=== PATIENT | female | born 1955 | race Caucasian/White ===

== ENCOUNTER 2025-02-22 15:50 | Outpatient (OUT) | payer OTHER, SELFPAY ==
--- OUTSIDE RECORDS SUMMARY | 2025-02-04 13:40 | XMS_ITS | Encounter Summary ---
Author Organization [facility] Address [address] [place] [address] Phone Care Team Providers Care Esol Teacher Assistant Name Role Phone Boom Parker DO Primary Care Provider [phone] Reason for Referral * Cardiovascular (Routine) - Pending ReviewSpecialtyDiagnoses / Procedures Referred By ContactReferred To Contact Diagnoses PAF (paroxysmal atrial fibrillation) (Multi) Procedures ECG 12 Lead ECG 12 Lead Juancho Morejon MD [address], [address] [address] Phone: tel: fax: Referral IDStatusReasonStart DateExpiration DateVisits RequestedVisits [id number] * CV Imaging (Routine) - Pending ReviewSpecialtyDiagnoses / ProceduresReferred By ContactReferred To ContactCardiology Diagnoses Left atrial dilatation Right atrial dilation Abnormal echocardiogram Procedures Transthoracic Echo Complete [place] ECHO TTHRC R-T 2D W/WOM-MODE COMPL SPEC&COLR D Juancho Morejon MD [address], [address] [address] Phone: tel: fax: Referral IDStatusNichelleasonStart DateExpiration DateVisits RequestedVisits [id number] Review Perform Procedure * Consultation (Routine) - AuthorizedSpecialtyDiagnoses / ProceduresReferred By ContactReferred To ContactCardiology Diagnoses PAF (paroxysmal atrial fibrillation) (Multi) Procedures Follow Up In Cardiology Juancho Morejon MD [address] [facility], [address] [place] [address] Phone: tel: fax: Juancho Morejon MD [address] [facility], [address] [place], [place] [id number] Phone: tel: fax: Referral IDStatusReasonStart DateExpiration DateVisits RequestedVisits [id number]/7/202511/7/202611 * Cardiovascular (Routine) - AuthorizedSpecialtyDiagnoses / ProceduresReferred By ContactReferred To Contact Diagnoses PAF (paroxysmal atrial fibrillation) (Multi) Procedures ECG 12 Lead Juancho Morejon MD [address] [facility] [address], [address] [address] Phone: tel: fax: Referral IDStatusReasonStmachias DateExpiration DateVisits RequestedVisits [id number]/7/202611 Reason for Visit * ReasonCommentsFollow-up6 months PAF (paroxysmal atrial fibrillation) (Multi) * Consultation (Routine) - AuthorizedSpecialtyDiagnoses / ProceduresReferred By ContactReferred To ContactCardiology Diagnoses Essential hypertension Procedures Follow Up In Cardiology Juancho Morejon MD [address] [facility], [address] [address] Phone: tel: fax: Juancho Morejon MD [address] [facility] [address], [address] [address] Phone: tel: fax: Referral IDStatusReasonStart DateExpiration DateVisits RequestedVisits [id number]/7/20253/ Encounter Details DateTypeDepartmentCare Team (Latest Contact Info)Yyaooqvsewf42/07/2025 1:40 PM ESTOffice Visit [facility] [address] [address] Juancho Morejon MD [address] [facility] [address], [address] [address] PAF (paroxysmal atrial fibrillation) (Multi) (Primary Dx); High risk medication use; Left atrial dilatation; Coronary atherosclerosis due to severely calcified coronary lesion; Abnormal echocardiogram; Right atrial dilation; Essential hypertension; Former smoker; BMI 28.0-28.9,adult Discharge Disposition: Home Social History Tobacco UseTypesPacks/DayYears UsedDateSmoking Tobacco: FormerCigarettes Smokeless Tobacco: NeverAlcohol UseStandard Drinks/WeekCommentsNever0 (1 standard drink = 0.6 oz pure alcohol)CommentsUnknownSex and Gender InformationValueDate RecordedSex Assigned at BirthNot on fileLegal SexFemale 02/22/2022 4:53 PM ESTGender IdentityNot on fileSexual OrientationNot on file documented as of this encounter Last Filed Vital Signs Vital SignReadingTime TakenCommentsBlood Yefponso770/ 1:44 PM EST Ywhlh822802/04/2025 1:44 PM ESTTemperature--Respiratory Rate--Oxygen Saturation-- Inhaled Oxygen Concentration--Diiuwe38.6 kg (180 lb)02/04/2025 1:44 PM ESTHeight 170.2 cm (5' 7 )02/04/2025 1:44 PM ESTBody Mass Index28.19104/06/2024 1:44 PM EST documented in this encounter Functional Status * BPAnswerDate of VivojuqdonFuxzcq067/ 1:44 PM Jaylen Garcia MA * PulseAnswerDate of GwfgsmdhcuNfyxzu8753/07/2025 1:44 PM Jaylen Garcia MA documented as of this encounter Patient Instructions * Patient Instructions* Suki Trinidad LPN - 02/04/2025 1:40 PM EST Please bring all medicines, vitamins, and herbal supplements with you when you come to the office. Prescriptions will not be filled unless you are compliant with your follow up appointments or have a follow up appointment scheduled as per instruction of your physician. Refills should be requested at the time of your visit. BMI was above normal measurement. Current weight: 81.6 kg (180 lb) Weight change since last visit (-) denotes wt loss 7 lbs Weight loss needed to achieve BMI 25: 20.7 Lbs Weight loss needed to achieve BMI 30: -11.1 Lbs Provided instructions on dietary changes Provided instructions on exercise. * Attachments The following attachments cannot be sent through Care Everywhere. * Heart Healthy Diet (Welsh) documented in this encounter Progress Notes * Juancho Morejon MD - 02/04/2025 1:40 PM EST HPI Patient is in the office for follow-up for paroxysmal atrial fibrillation which has been successfully managed with flecainide, she is by choice not anticoagulated, there has been no breakthrough atrial fibrillation. Her non- Hodgkin's lymphoma is in remission at the present time. Recent CT scan of the chest revealed atherosclerosis and coronary calcification and also calcification of the carotid arteries. She has no indication of clinical underlying ischemic heart disease, there has been no chest pain palpitations dyspnea on exertion. Her parents had coronary artery disease. I reviewed with the patient her lab data from November 2024 covering comprehensive metabolic profile CBC and lipid profile. LDL cholesterol was noted to be elevated at 120 mg/dL. We discussed this result below. ASSESSMENT AND PLAN: 1. Paroxysmal atrial fibrillation, on flecainide. She is not anticoagulated because of hematuria. Patient can tell when the heart is out of rhythm. EKG today confirmed normal sinus rhythm with normalintervals. 2. Non-Hodgkin's lymphoma presently controlled in remission 3. History of hematuria preventing us from the anticoagulation. Patient had CHADS-VASc score of 2. There has been no recurrences off of the anticoagulants 4. Atherosclerosis and coronary calcifications and aortic calcification based on recent CT scan of the chest. I explained to the patient the pathophysiology on the electronic charts in the office andstrongly suggested that to bring her LDL cholesterol further down. She is against taking statins. Itried to explain to the patient that the right approach is to be on a statin and explained the ratio nal for that. She prefer to try for the next 9 months a holistic approach. Will find out a few months how this is going to work. No cardiac investigation presently are needed. 5. Essential hypertension, on multiple medications, currently under control. Patient has been compliant medications, lifestyle changes and low-salt diet. She had no side effect of medications. 6. Pleural effusion status post multiple thoracentesis related to lymphoma, there has been no recent recurrences. Lung examination today was normal. 7. Hyperlipidemia and need for medical therapy due to atherosclerosis. Patient prefers to follow lifestyle modifications first and we will check the level for next visit in 9 months. ROS Review of system essentially unremarkable Vitals: 02/04/25 1344 BP: 128/74 BP Location: Right arm Patient Position: Sitting Pulse: 60 Weight: 81.6 kg (180 lb) Height: 1.702 m (5' 7 ) Objective Physical Exam Constitutional: Appearance: Normal appearance. HENT: Nose: Nose normal. Neck: Vascular: No carotid bruit. Cardiovascular: Rate and Rhythm: Normal rate. Pulses: Normal pulses. Heart sounds: Normal heart sounds. Pulmonary: Effort: Pulmonary effort is normal. Abdominal: General: Bowel sounds are normal. Palpations: Abdomen is soft. Musculoskeletal: General: Normal range of motion. Cervical back: Normal range of motion. Right lower leg: No edema. Left lower leg: No edema. Skin: General: Skin is warm and dry. Neurological: General: No focal deficit present. Mental Status: She is alert. Psychiatric: Mood and Affect: Mood normal. Behavior: Behavior normal. Thought Content: Thought content normal. Judgment: Judgment normal. Allergies Furosemide, Hydrochlorothiazide, Rivaroxaban, and Spironolactone Current Medications Current Outpatient Medications Medication Instructions acetaminophen (TYLENOL 8 HOUR) 650 mg, Every 8 hours PRN amLODIPine (NORVASC) 5 mg, oral, Daily, as directed [START ON 02/07/2025] aspirin 81 mg, oral, 2 times weekly celecoxib (CeleBREX) 200 mg capsule 1 capsule, Daily (0630) cyclobenzap-irritant cntr irr2 10 mg kit Daily at bedtime as needed for muscle pain flecainide (TAMBOCOR) 50 mg, oral, 2 times daily hydrALAZINE (APRESOLINE) 50 mg, oral, 2 times daily losartan (COZAAR) 50 mg, oral, 2 times daily metoprolol succinate XL (TOPROL-XL) 25 mg, oral, Daily naproxen (Naprosyn) 500 mg tablet 1 tablet, Every 12 hours scheduled (0630,1830) Assessment/Plan 1. PAF (paroxysmal atrial fibrillation) (Multi) ECG 12 Lead Follow Up In Cardiology aspirin 81 mg EC tablet ECG 12 Lead flecainide (Tambocor) 50 mg tablet metoprolol succinate XL (Toprol-XL) 25 mg 24 hr tablet 2. High risk medication use 3. Left atrial dilatation Transthoracic Echo Complete Lipid Panel Lipid Panel 4. Coronary atherosclerosis due to severely calcified coronary lesion 5. Abnormal echocardiogram Transthoracic Echo Complete 6. Right atrial dilation Transthoracic Echo Complete Lipid Panel Lipid Panel 7. Essential hypertension Follow Up In Cardiology Lipid Panel amLODIPine (Norvasc) 5 mg tablet hydrALAZINE (Apresoline) 50 mg tablet losartan (Cozaar) 50 mg tablet metoprolol succinate XL (Toprol-XL) 25 mg 24 hr tablet Lipid Panel 8. Former smoker 9. BMI 28.0-28.9,adult Scribe Attestation By signing my name below, Suki Verma LPN, Scribdonavon attest that this documentation has been prepared under the direction and in the presence of Juancho Morejon MD. Provider Attestation - Scribe documentation All medical record entries made by the Scribe were at my direction and personally dictated by me. Ihave reviewed the chart and agree that the record accurately reflects my personal performance of the history, physical exam, discussion and plan. documented in this encounter Miscellaneous Notes * Addendum Note - Rosendo Jaramillo LPN - 02/04/2025 1:40 PM ESTAddended by: ROSENDO JARAMILLO on: 02/08/2025 08:50 AM Modules accepted: Orders documented in this encounter Plan of Treatment DateTypeDepartmentCare Team (Latest Contact Info)Rqhrkfwbisr13/18/2026 1:40 PM EDTOffice Visit [facility] [address] [place] [id number] Juancho Morejon MD [address] [place] [address] NameTypePriorityAssociated DiagnosesOrder ScheduleTransthoracic Echo Complete EchocardiographyRoutine Left atrial dilatation Right atrial dilation Abnormal echocardiogram Expected: 02/04/2025 (Approximate), Expires: 02/04/2027Lipid PanelLabRoutine Left atrial dilatation Right atrial dilation Essential hypertension Expected: 11/04/2025 (Approximate), Expires: 02/04/2026ECG 12 LeadECGRoutine PAF (paroxysmal atrial fibrillation) (Multi) Expected: 11/08/2025 (Approximate), Expires: 02/04/2026documented as of this encounter Procedures Procedure NamePriorityDate/TimeAssociated DiagnosisCommentsECG 12-LEADRoutine 02/04/2025 1:40 PM EST PAF (paroxysmal atrial fibrillation) (Multi) documented in this encounter Results * ECG 12 Lead (02/04/2025 1:40 PM EST)Specimen (Source)Anatomical Location / LateralityCollection Method / VolumeCollection TimeReceived Time Narrative CPACS - 02/04/2025 4:39 PM EST Normal sinus rhythm, incomplete right bundle branch block, septal myocardial infarction undetermined age, abnormal ECG Authorizing ProviderResult TypeResult StatusHassdiana Morejon MDECJosé Manuel ORDERABLES Final ResultPerforming OrganizationAddressCity/State/ZIP CodePhone Number CPACS documented in this encounter Visit Diagnoses Diagnosis PAF (paroxysmal atrial fibrillation) (Multi)- Primary Atrial fibrillation High risk medication use Left atrial dilatation Cardiomegaly Coronary atherosclerosis due to severely calcified coronary lesion Abnormal echocardiogram Nonspecific (abnormal) findings on radiological and other examination of other intrathoracic organs Right atrial dilation Cardiomegaly Essential hypertension Unspecified essential hypertension Former smoker Personal history of tobacco use, presenting hazards to health BMI 28.0-28.9,adult documented in this encounter Additional Health Concerns AssessmentNoted TimeA fall risk assessment has been completed for the patient 02/04/2025 1:43 PM ESTdocumented as of this encounter Care Teams Team MemberRelationshipSpecialtyStart DateEnd Date Boom Parker DO [address] [place] [address] PCP - GeneralFamily Jyrjaxak37/10/24documented as of this encounter
--- OUTSIDE RECORDS SUMMARY | 2025-02-10 19:56 | XMS_ITS | Continuity of Care Document ---
Author Organization [facility] Address [address] [place] [address] Phone Care Team Providers Care Senior Cytogenetic Technologist Name Role Phone Boom Otto DO Primary Care Provider [phone] Berta King MD Attending Provider [phone] Oj Wright DO Attending Provider Franco Watson MD Referring Provider [phone] [facility] Attending Provider Constance Jones [facility] Attending Provider Peter Moreno DO Attending Provider Boom Otto DO Attending Provider Care Teams Patient Care Team Team Status: Active Member Role/Relationship Status Dates Boom Otto DO Primary Care Provider Active Visit Care Team Team Status: Inactive Member Role/Relationship Status Dates Boom Otto DO Primary Care Provider Active S tart: November 19, 2024 End: November 19Leslie Stark ProviderActiveStart: November 19, 2024 End: November 19, 2024 Visit Care Team Team Status: Inactive Member Role/Relationship Status Dates Boom Otto DO Primary Care Provider Active S tart: December 07, 2024 End: December 07, 2024Frdany Wright , DOAttending ProviderActiveStart: December 07, 2024 End: December 07, 2024 Visit Care Team Team Status: Inactive Member Role/Relationship Status Dates Boom Otto DO Primary Care Provider Active S tart: December 16, 2024 End: December 16sly King , MDAttending ProviderActiveStart: December 16, 2024 End: December 16, 2024 Visit Care Team Team Status: Active Member Role/Relationship Status Dates Boom Otto DO Primary Care Provider Active S tart: December 17, 2024 Berta King MDAttending ProviderActiveStart: December 17, 2024 Franco Watson MDReferring ProviderActiveStart: December 17, 2024 Visit Care Team Team Status: Inactive Member Role/Relationship Status Dates Boom Otto DO Primary Care Provider Active S tart: December 24, 2024 End: December 24mary MORRELL , DO CHCAttending ProviderActive Start: December 24, 2024 End: December 24, 2024 Visit Care Team Team Status: Inactive Member Role/Relationship Status Dates Boom Otto DO Primary Care Provider Active S tart: January 13, 2025 End: January 13, 2025Jaearl Jones RPHAttending ProviderActiveStart: January 13, 2025 End: January 13, 2025 Visit Care Team Team Status: Inactive Member Role/Relationship Status Dates Boom Otto DO Primary Care Provider Active S tart: January 14, 2025 End: January 14, 2025Peter Rod DOAttending ProviderActiveStart: January 14, 2025 End: January 14, 2025 Visit Care Team Team Status: Inactive Member Role/Relationship Status Dates Boom Otto DO Primary Care Provider Active S tart: January 18, 2025 End: January 18, 2025Dapreethi Otto DOAttending ProviderActiveStart: January 18, 2025 End: January 18, 2025 Visit Care Team Team Status: Inactive Member Role/Relationship Status Dates Boom Otto DO Primary Care Provider Active S tart: February 04, 2025 End: February 04, 2025David Girvin , DOAttending ProviderActiveStart: February 04, 2025 End: February 04, 2025 Patient Care Team Team Status: Inactive Member Role/Relationship Status Dates Boom Otto DO Primary Care Provider Active S tart: February 10, 2025 End: February 10, 2025Mayank Valladares ProviderActiveStart: February 10, 2025 End: February 10, 2025 Visit Care Team Team Status: Active Member Role/Relationship Status Dates Boom Otto DO Primary Care Provider Active S tart: February 10, 2025 Mayank Montague ProviderActiveStart: February 10, 2025 Chief Complaint and Reason for Visit Chief Complaint Admit Date J90 November 19, 2024 12 :45pm Venous Insufficiency December 07, 2024 9:35am Follow Up 3 Months December 16, 2024 3:38pm lymphadenopathy December 17, 2024 11:16am Pillars December 24, 2024 6:29am flu January 13, 2025 1 1:56am CONSULT DR OTTO FRANCISCO KNEE PAIN [facility]X [facility] January 14, 2025 8:57am wellness/review [facility] labs December 8:06am E55.9 R63.4 February 04, 2025 2 :53pm E55.9 C85.88 E28.39 Z13.820 January 8:15am Bilateral Knee OA February 10, 2025 5:30pm Reason for Visit Admit Date 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, 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 Claustrophobia December 16, 2024 3:38pm Encounter for coordination of complex ca re December 16, 2024 3:38pm 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 3:38pm Myalgia, multiple sites December 16, 2024 3:38pm Thoracolumbar back pain December 16, 2024 3:38pm Encounter for immunization January 13, 2025 11:56am Bilateral primary osteoarthritis of knee January 14, 2025 8:57am Anemia January 18, 2025 8 :06am Cervical pain January 18, 2025 8 :06am Hematuria January 18, 2025 8 :06am Hyperlipidemia January 18, 2025 8 :06am Knee pain, bilateral January 18, 2025 8:06am Large cell lymphoma of multiple sites Oc tober 2024 8:06am Paroxysmal atrial fibrillation December 302024 8:06am Pleural effusion, right January 18 8:06am Vitamin D deficiency January 18, 2025 8:06am Wellness examination January 18, 2025 8:06am Reason for Referral Type Reason(s) Provider Provider Contact Information P yandy Address Start Date you may use alternating doses of ibuprofen (Motrin) 600 mg followed 3 hours later by 2 extra strength Tylenol's, followed 3 hours later by ibuprofen 600 mg. You may continue this repeating schedule for pain management.Odilia Freeman Phone: [phone] [place] [id number] Allergies, Adverse Reactions, Alerts Allergen Type Severity Reaction Last Updated Verified Status hydrochlorothiazide Allergy Unknown unknown, hair loss January 18, 2025 7:21am Yes Active lisinopril Allergy Unknown Cough January 18, 2025 7:21am Yes Active rivaroxaban Allergy Unknown hematuria January 18, 2025 7:21am Yes Active Social History Smoking Status Status Start Date End Date Date of Observa tion Ex-smoker (finding) December 07, 2024 10:40am Observation Status Observation Response Date of Response Legal Sex Female (finding) [facility] 1954 Family History Relationship Condition Age at Onset Recorded Date/T mary mother Alzheimer's dementia Unknown Cerebrovascular accident (CVA)UnknownHypertensionUnknownfatherMyocardial infarctionUnknownHeart diseaseUnknowndaughterDisorder of hemostasisUnknown grandparentAlzheimer's dementiaUnknowngrandparentLeukemiaUnknowngrandparent Myocardial infarctionUnknown Problems Active Problems Problem Diagnosis/Recorded Date Onset Date Stat us Thoracolumbar back pain October 23, 2023 11:42am Unknow n Active Mesenteric lymphadenopathy October 03, 2023 8:17am Unkno wn Active Bilateral lower extremity edema September 17, 2024 1:18pm Unknown Active Encounter for immunization January 22, 2024 6:40am U nknown Active Bilateral primary osteoarthr itis of knee January 10, 2025 3:38pm Unknown Active Oral pharyngeal candidiasis February 05, 2024 4:22pm Unknown Active Shortness of breath January 05, 2024 1:32pm Unknown Active Hematuria January 18, 2025 7:34am Unknown Ac tive Asthmatic bronchitis August 11, 2023 2:15pm Unknown Active Acute sinusitis August 11, 2023 2:01pm Unknown Act dennis 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, 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 Unknown Ac tive Anemia January 05, 2024 1:36pm Unknown Act dennis Claustrophobia November 13, 2023 3:41pm Unknown A ctive Cough August 06, 2023 7:57am Unknown Active Drug-induced skin rash January 07, 2024 3:09pm Unknow n Active Encounter for coordination o f complex care June 09, 2024 2:32pm Unknown Active Wellness examination January 05, 2024 1:07pm Unknown Active Hyperlipidemia January 05, 2024 1:08pm Unknown A ctive Lymphadenopathy September 23, 2023 6:54am Unknown Ac tive Encounter for antineoplastic chemotherapy and immunotherapy October 23, 2023 11:42am Unknown Activ e Wheeze August 06, 2023 7:57am Unknown Active Large cell lymphoma of multiple sites October 23, 2023 11:43am Unknown Active Knee pain, bilateral May 04, 2024 9:13am Unknown Active Paroxysmal atrial fibrillation January 18, 2025 7:34 am Unknown Active Myalgia, multiple sites December 18, 2024 8:17am Un known Active Cervical pain January 18, 2025 7:52am Unknown A ctive Supraclavicular adenopathy October 03, 2023 8:17am Unkno wn Active Chemotherapy-induced neutropenia December 26, 2023 1:49pm Unknown Active Abdominal pain September 07, 2023 7:44am Unknown Acti ve Breast mass, right June 10, 2024 11:38am Unknown Active Pleural effusion, right November 21, 2023 1:34pm Unkno wn Active Mild pulmonary hypertension December 26, 2023 1:50p m Unknown Active HTN (hypertension) April 11, 2023 7:14am Unknown Active Constipation August 26, 2017 9:52am Unknown Active Vitamin D deficiency January 05, 2024 12:34pm Unknown Active Atrial fibrillation with RVR August 11, 2023 2:07pm Unk nown Active Medications Medication Status Dose Units Route Directions Qty Days Refills S tart Date Stop Date End Date Reason(s) Instructions Adherence Prednisone 20 mg tablet Discontinued 0 PO.with food or mlkc1121Ijczk 2023 11:00pmMa2023 1:05pmtake 3 tablets a day x3 days, 2 tabs a day x3 days and then 1 tab a day x3 days orally WITH FOOD ORMILK;Amoxicillin-Pot Clavulanate 875-125 mg kdcbncGudtqrpeducv0NDPRJ Twice tpjgn30355Piuyk 14th, 2024 11:00pmMay 2023 1:06pmwith food Terconazole 0.8 % mvuukRohxludnlqht8AHSMUEBIQIITIYGUIUxyeq at astkkdx7473Tvcbq 2023 11:00pmMay 2023 1:41pmCelecoxib 200 mg capsuleDiscontinued0 .ROUTE.VFJVKUI640Ucuj 2023 7:34amJune 2023 7:01amTAKE 1 CAPSULE BY MOUTH ONCE DAILY WITH FOODAllopurinol 300 mg iwgkyuGiscgfmwlhrj086NFVPUueeo204 November 02, 2023 11:00pmAugust 2023 2:05pmPrednisone 50 mg tablet Zrhjyjxesmjs705JEAP.PHCGCID925Frnbbs 5th, 2024 12:49pmAugust 2023 12:52pm 100 mg orally take days 1-5 of each chemo cycle; plan for six cyclesPrednisone 50 mg jgxdtoHfihztdzfivb097JFBL.DUGGBDT072Vzshdc 5th, 2024 12:52pmAugus2023 12:04bo829 mg orally take days 1-5 of each chemo cycle; plan for six cycles Prednisone 50 mg kkqdbdPlpagvyqansj176YXUQ.FRYHZNF863Stnpnk 4th, 2024 11:00pm March 12, 2024 1:54lr905 mg orally take days 1-5 of each chemo cycles plan for six cycles;Acyclovir 400 mg kurshkPvkwvjkhwqpe769DHWWKdbit pxovw303Lzflmu2023 11:00pmAugust 2023 2:07pmSulfamethoxazole-Trimethoprim (Bactrim Ds) 800-160 mg xzjhsnRuckkzfkvfzg3JDSqsfl936Amxuxg 7th, 2024 11:00pmAugus2023 2:07pmTAKE ONE TABLET ON MONDAYS, WEDNESDAYS, AND FRIDAYS (3 TIMES PER WEEK)Sulfamethoxazole-Trimethoprim (Bactrim Ds) 800-160 mg dkzjwoRsknqqxxpxwc0CJ Gakyb924Tncurw2023 2:05pmJune 2024 9:33amOn Hold: hold for Dr King TAKE ONE TABLET ON MONDAYS, WEDNESDAYS, AND FRIDAYS (3 TIMES PER WEEK)Acyclovir 400 mg jjnpugVlqsgvfyylib615KOUREfuvh fqnuh0155Etqxus2023 2:06pmDecember 2023 4:11pmHydrocodone-Acetaminophen 5-325 mg yaxymmOlclbebhzsmv1ALOJVXwqqn 12 hours as needed for ygnt5141Fcwtzjll 2024March 2024 2:29pmPain in both knees Pain in right knee Pain in left kneeSulfamethoxazole-Trimethoprim (Bactrim Ds) 800-160 mg tablet Krsnozfvmgny6KOXQK.RXDVYBX671Nrrnovjk 2024 2:58pmSeptember 2024 9:20am1 tab orally by mouth Uckcdw-Gmph-Xyfstz;Nystatin 100,000 unit/mL qvowiihjevJjvflysadwad5WKOE5-4 TIMES PER RWZ4997Avdx2024 11:00pmSeptember 2024 9:20amswish and swallowLosartan 50 mg ZgojygIhrxazhnvncn76XUOFGlaal dailyy 2017 11:00pmJanuary 2023 7:29amMetoprolol Succinate 50 mg Tablet Extended Release 24 LlEnkdxnoidmzv40GONRBqkuhAfu 28th, 2018 11:00pm January 05, 2024 1:10pm25 mg dailyHydralazine 25 mg KvlamiCbuxiwxacdlr47SJEV Twice dailyAugust 25, 2017 11:00pmJuly 2023 12:57pmAmlodipine (Norvasc) 5 mg SmnunuBpqwjm5UJFKWiuehPtt 28th, 2018 11:00pmUnknownFlecainide 50 mg TabletActive 50MGPOTwice dailyAugust 25, 2017 11:00pmUnknownMetoprolol Succinate 50 mg tablet extended release 24 myQfawrynknskp81CPYAZyrebDytmret 7th, 2024 1:05pmMarch 2024 2:31pm25 mg dailyCelecoxib 200 mg dldwaurTowbnuelrlbn264ONPSDeaca as needed for PainJanuary 2023 12:00amJune 2023 7:35amNaproxen 500 mg tablet Lqvyojulkaxt598JQQSFultm daily as needed for PainJanuary 2023 12:00amJune 2023 7:01amLosartan 50 mg osldctLbuqtk93FQQGXzepw dailyJuly 2023 11:00pmUnknownAcetaminophen (Tylenol Arthritis Pain) 650 mg tablet extended tivkiciToerlv898GPFFQjzdi 12 hours as needed for painJune 2023 11:00pm UnknownPrednisone 50 mg HxuafnFbqtxrqivbww568BYSTOtmnb36Uync 2023 11:00pm November 03, 2023 12:51pmPrednisone 50 mg OrgcoqKewsxqezomyl100WDYWJgucn92Igxgte 2023 11:00pmOctober 2023 1:08pmAcetaminophen-Codeine 300-30 mg tablet Cxdcckgebqab5UFEFWWTHPP 4-6 HOURS as needed for uzye7414Ejwtko 2023 11:00pm January 05, 2024 1:04pmLarge cell lymphoma of multiple sites Other specified types of non-Hodgkin lymphoma, lymph nodes of multiple sites Ibuprofen 600 mg qqhmopIqxxbmyaxdwc654ISQAVCXEN 4-6 HOURS as needed for wufv9864 December 06, 2024 11:00pmOctober 2024 7:42amdo not exceed 4 doses in a 24 hour periodOndansetron 8 mg tablet,xojctjzltkdubnVsapeiwwgcdn3ZBLVS0O as needed for Zgcrht397Rqfi 2023 11:00pmMarch 2024 2:29pmMetoprolol Succinate 25 mg tablet extended release 24 mpZplqnxagqkzv44AKKXCqsltYcxxawq 2023 11:00pmMarch 2024 2:29pmAcetaminophen (Tylenol 8 Hour) 650 mg tablet extended jeezccqExghxruunwer245VBBRYdhcy 12 hoursJune 2024 11:00pm December 16, 2024 2:47pmCelecoxib (Celebrex) 200 mg mirhbltAdtoch325IKDBQqkug 901October 2024 7:42amUnknownNaproxen 500 mg znjdayYukpre913LKYEEbhve pzxgk19748Fssriwb 2024 11:00pmUnknownLosartan 50 mg wgjmowOrsgbcsgeghk31RQ POTwice dailyMay 2023 11:00pmJune 2023 7:01amCyclobenzaprine 10 mg acistmJomdyy53VKYPHkmvu at bedtime as needed for muscle painMay 2023 11:00pmUnknownCholecalciferol (Vitamin D3) 50 mcg (2,000 unit) hvpxzoqUbdyfa0838 UNITPO3 Times a weekMay 2023 11:00pm50 mcg orally 5 days per week;Unknown Prednisone 20 mg ccngcnFqxuymvunybl0FH.IZWDEPW53859Vzn 12th, 2024 11:00pmJune 2023 7:01am3 tabs a day x3 days then take 2 tabs a day x3 days then take 1 tab a day x3 then take 1/2 tablet aday x4 days with food or milk orally; Doxycycline Hyclate 100 mg kcjbldlTmdlqzsnnxtn188BBPWHtdcg bszts82503Kvb 12th, 2024 11:00pmJune 2023 7:10amHydralazine 50 mg ggzzxtKdmosjfpltnk15VNVX Three times dailyJuly 2023 11:00pmJuly 2023 11:51amHydralazine 50 mg sqvrgrRtbwkd30ETSTTtrwl dailyJuly 2023 11:51amUnknownClotrimazole 10 mg ionsymDovusjwdwxoc62WVUPCVTD MEMThree times nnvei701Dskkczyh 2023 12:00am March 03, 2024 4:11pmCandidiasis of mouth Candidal stomatitisClotrimazole 10 mg cbwyueBzughbmowbnn11QAVCIIOH MEMThree times icdzj971Mdkeovte 2023 4:10pmJune 2024 9:33amCandidiasis of mouth Candidal stomatitisAcyclovir 400 mg kjjanuTeuvzgnyavmn131JLIUBwdhx xngbi0836 March 03, 2024 4:11pmJune 2024 9:32amSulfamethoxazole-Trimethoprim (Bactrim Ds) 800-160 mg fuypivGhymbghrbuyd7TXOAV.BYYJKBM575Gaelsfjx 2023 12:00amFebruary 2024 2:58pm1 tab orally by mouth Ualnjz-Tmag-Bdoagt; Metoprolol Succinate 25 mg tablet extended release 24 fwOwaftx20AHKSZpiyzDaeic 2024 11:00pmUnknownCelecoxib (Celebrex) 200 mg hmkbzrkNzchnfndvafv312HXAW Gobmi700Uztdq 2024 11:00pmApril 2024 4:08pmCelecoxib (Celebrex) 200 mg fuuhentVjkelimswoab451NVJMQgilk359Wksno 2024 4:08pmOctober 2024 8:58am Immunizations Immunization Event Date Not Given Reason Dose Number Haul Driver Lot Number Reason(s) Given Vaccine Information Statement (VIS) Detail Administration Location COVID-19 mRNA-1273 (Moderna) April 20, 2020 [id number] CtrCOVID-19 mRNA-1273 (Moderna)June 01, 2020 [id number]-[facility] CtrQuadrivalent Influenza (mdv)December 30, 2019Fluzone TIV High-Dose 65YR+April 22, 2017Fluzone TIV High-Dose 65YR+ January 01, 2022Fluzone TIV High-Dose 65YR+January 22, 2024UT8409CAFCCC Fluzone TIV High-Dose 65YR+January 13, 20252297FP8508NRITZXzxlipgcee, unspecified formulationJanuary 2017influenza, unspecified formulationOctober 2019 influenza, unspecified formulationOctober 2021Quadrivalent InfluenzaOctober 2022 Medical Equipment Device Date Implanted Date Explanted Device Deta ils Vascular port/catheter November 04, 2023 December 07, 2024 МАРИЯ: [id number] Issuing Agency: [id number] Device Id: [id number] Expiration Date: 2024-12-28 Lot Number: [id number] Procedures Procedure Date Performed Status US abdomen limited November 19, 2024 11:53am com pleted CT chest w con October 10, 2023 11:22am complete d PET tumor init tx strat sb-mt October 17, 2023 7: 25am completed CT angio chest PE protocol November 21, 2023 11: 30am completed MR lumbar spine wo/w con December 02, 2023 1:5 1pm completed XR pre/post mri xray December 03, 2023 12:50pm completed MR thoracic spine wo/w con December 03, 2023 1 2:50pm completed MM diagnostic mammo BI w/CAD June 18, 2024 6: 37am completed US breast RT limited June 18, 2024 6:37am com pleted CT abdomen pelvis w con September 09, 2024 7:56am c ompleted CT chest w con September 09, 2024 7:56am completed PET tumor subq tx strat sb-mt December 23 7:14am completed PET tumor subq tx strat sb-mt March 01, 2024 8:16am completed OR Infusaport Insertion/Ciaran rom (Not Applicable) December 07, 2024 10:55am completed XR dexa axial skeleton February 10, 2025 8:21a m completed XR cervical spine w flex/ext February 04, 2025 2:58pm completed Relevant Diagnostic Tests and/or Laboratory Data Laboratory Results Test Collection Date/Time Result Date/Time Result Interpretation Reference Range Result Comment Performing Site Corrected White Blood Count September 09, 2024 8:44am September 09, 2024 8:59am 4.9 10*3/uL 3.8-11.[address] [place] [address] Ctr [id number] [address] [place] [address] 89417Gmnzbqctb White Blood CountSeptember 2024 9:28amSeptember 2024 9:47am4.9 10*3/uL3.8-11.[address] [place] [address] Ctr [id number] [address] [facility] 15851Jlfxjzzql White Blood CountSeptember 2024 5:32amSeptember 2024 6:16am5.1 10*3/uL3.8-11.[address] [place] [address] Ctr [id number] [address] [place] [address] 77992Euuybrqmgta WBC CountJune 2024 8:44amJun2024 8:59am4.9 10*3/uL3.8-11.6[facility] [id number] [address] [facility] 33840Goroujnvgcv WBC CountSeptember 2024 9:28amSeptember 2024 9:47am4.9 10*3/uL3.8-11.6FOhio[facility] [id number] [address] [facility] [address]Icetaobamen WBC CountSeptember 2024 5:32amSeptember 2024 6:16am5.1 10*3/uL3.8-11.6FOhio[facility] [id number] [address] [facility] 24844Ajg Blood CountJune 2024 8:44amJune 2024 8:59am3.79 10*6/uL3.60-5.00[facility] [id number] [address] [facility] 84262Tzo Blood CountSeptember 2024 9:28amSeptember 2024 9:47am4.02 10*6/uL3.60-5.00[facility] [id number] [address] [facility] 10103Tnn Blood CountSeptember 2024 5:32amSeptember 2024 6:16am3.98 10*6/uL3.60-5.00[facility] [id number] [address] [place] [address] 96595OztgemidqvXgho 2024 8:44amJune 2024 8:59am12.2 g/dL 11.8-15.4FOhio[facility] [id number] [address] [facility] 44679NbkangmhmwFazbulkqa 2024 9:28amSeptember 2024 9:47am 12.8 g/dL11.8-15.4FOhio[facility] [id number] [address] [place] [address] 51728FvnvjldcqdUvhlxglmg 2024 5:32amSeptember 2024 6:16am12.9 g/dL11.8-15.4FOhioHealth [facility] [id number] [address] [place] [address] 25980HvztohtsbiKzbk 2024 8:44amJune 2024 8:59am35.6 % 34.0-46.4FOhio[facility] [id number] [address] [place] [address] 82862IcqkuszfkfRmaggufzs 2024 9:28amSeptember 2024 9:47am 37.7 %34.0-46.4FOhio[facility] [id number] [address] [place] [address] 76686XsejvnmefaLiqgcoutd 2024 5:32amSeptember 2024 6:16am37.6 %34.0-46.4FOhioHealth Doctors [facility] [id number] [address] [place] [address] 82060Okgk Corpuscular VolumeJune 2024 8:44amJune 2024 8:59am94.1 kW33-427YqjeajatdMccullough-Hyde Memorial [facility] [id number] [address] [place] [address] 56134Lkic Corpuscular VolumeSeptember 2024 9:28amSeptember 2024 9:47am93.8 xQ00-967YlmaquzxrMccullough-Hyde Memorial [facility] [id number] [address] [place] [address] 10696Rlht Corpuscular VolumeSeptember 2024 5:32amSeptember 2024 6:16am94.6 wE14-541EgyfxlzomMccullough-Hyde Memorial Hospital [facility] [id number] [address] [place] [address] 00246Dyae Corpuscular HemoglobinJune 2024 8:44amJune 2024 8:59am32.2 pg24.7-34.3FOhioHealth [facility] [id number] [address] [place] [address] 44788Ohhd Corpuscular HemoglobinSeptember 2024 9:28amSeptember 2024 9:47am31.8 pg24.7-34.3FOhioHealth Doctors Hospital [facility] [id number] [address] [place] [address] 92716Nqcl Corpuscular HemoglobinSeptember 2024 5:32amSeptember 2024 6:16am32.4 pg24.7-34.3FOhioHealth Doctors Hospital [facility] [id number] [address] [place] [address] 29610Dqig Corpuscular Hemoglobin ConcentJune 2024 8:44amJune 2024 8:59am34.3 g/dL32.0-35.0[facility] [id number] [address] [place] [address] 55398Mzhw Corpuscular Hemoglobin ConcentSeptember 2024 9:28am December 07, 2024 9:47am33.9 g/dL32.0-35.0[facility] [id number] [address] [place] [address] 87206Tmzh Corpuscular Hemoglobin ConcentSeptember 2024 5:32am December 24, 2024 6:16am34.2 g/dL32.0-35.0[facility] [id number] [address] [place] [address] 00988Rux Cell Distribution WidthJune 2024 8:44amJune 2024 8:59am13.9 %11.9-15.3FOhio[facility] [id number] [address] [place] [address] 61234Skl Cell Distribution WidthSeptember 2024 9:28amSeptember 2024 9:47am13.5 %11.9-15.3FOhio[facility] [id number] [address] [place] [address] 62131Bii Cell Distribution WidthSeptember 2024 5:32amSeptember 2024 6:16am13.7 %11.9-15.3FOhio[facility] [id number] [address] [place] [address] 36988Bapyoigl CountJune 2024 8:44amJune 2024 8:64ct129 10*3/lS058-420XinsflutpMccullough-Hyde Memorial Hospital Ctr [id number] [address] [place] [address] 69929Nkwfyapi CountSeptember 2024 9:28amSeptember 2024 9:31pm636 10*3/qO463-556DveoquaccMccullough-Hyde Memorial Hospital [facility] [id number] [address] [place] [address] 35482Xzywxhqj CountSeptember 2024 5:32amSeptember 2024 6:65fs830 10*3/gP190-936WmuswzwwzMccullough-Hyde Memorial Hospital [facility] [id number] [address] [facility] 15427Stga Platelet VolumeJune 2024 8:44amJune 2024 8:59am7.5 fL6.3-10.7FOhioHealth [facility] [id number] [address] [facility] 17355Jxly Platelet VolumeSeptember 2024 9:28amSeptember 2024 9:47am7.0 fL6.3-10.7FOhioHealth Doctors [facility] [id number] [address] [facility] 98984Yntb Platelet VolumeSeptember 2024 5:32amSeptember 2024 6:16am7.1 fL6.3-10.7FOhioHealth Doctors Hospital [facility] [id number] [address] [facility] 03396Aplbrykfonw (%) (Auto)September 09, 2024 8:44amJune 2024 8:59am65.2 %.[facility] [id number] [address] [facility] 03341Ngdxgcnccwf (%) (Auto)December 07, 2024 9:28amSeptember 2024 9:47am63.4 %.[facility] [id number] [address] [facility] 01222Dbfxerlucvo (%) (Auto)December 24, 2024 5:32amSeptember 2024 6:16am56.2 %.[facility] [id number] [address] [facility] 46527Peybnaxzpzb (%) (Auto)September 09, 2024 8:44amJune 2024 8:59am18.0 %.[facility] [id number] [address] [facility] 00009Olmxobncqmj (%) (Auto)December 07, 2024 9:28amSeptember 2024 9:47am23.5 %.[facility] [id number] [address] [place] [address]Basfnumerza (%) (Auto)December 24, 2024 5:32amSeptember 2024 6:16am24.6 %.[facility] [id number] [facility] [facility] [place] [address]Suxcvqbzj (%) (Auto)September 09, 2024 8:44amJune 2024 8:59am13.3 %.[facility] [id number] [facility] [facility] [place] [address]Dbwtyqckl (%) (Auto)December 07, 2024 9:28amSeptember 2024 9:47am9.8 %.[facility] [id number] [address] [facility] [address]Qzjtatktr (%) (Auto)December 24, 2024 5:32amSeptember 2024 6:16am13.2 %.[facility] [id number] [address] [facility] [place] [address]Bjmndzmzixk (%) (Auto)September 09, 2024 8:44amJune 2024 8:59am2.1 %.[facility] [id number] [address] [facility] [place] [address]Tjzpbqbqimf (%) (Auto)December 07, 2024 9:28amSeptember 2024 9:47am2.1 %.[facility] [id number] [address] [facility] [place] [address]Hryftxdmsse (%) (Auto)December 24, 2024 5:32amSeptember 2024 6:16am4.2 %.[facility] [id number] [address] [facility] [place] [address]Kpgiillnm (%) (Auto)September 09, 2024 8:44amJune 2024 8:59am1.4 %.[facility] [id number] [address] [facility] [place] [address]Ybvubewis (%) (Auto)December 07, 2024 9:28amSeptember 2024 9:47am1.2 %.[facility] [id number] [address] [facility] [place] [address]Ecveghwpg (%) (Auto)December 24, 2024 5:32amSeptember 2024 6:16am1.8 %.[facility] [id number] [address] [facility] [address]Zlqogaocp RBC Relative Count (auto)September 09, 2024 8:44amJune 2024 8:59am0.1 /100{WBC}0-0.5F[facility] [id number] [address] [facility] [address]Gjyrgmnoz RBC Relative Count (auto)December 07, 2024 9:28am December 07, 2024 9:47am0.1 /100{WBC}0-0.5F[facility] [id number] [address] [facility] [address]Iwdyrubzh RBC Relative Count (auto)December 24, 2024 5:32am December 24, 2024 6:16am0.1 /100{WBC}0-0.5FOhio[facility] [id number] [address] [facility] [address]Vzptfoapfwe # (Auto)September 09, 2024 8:44amJune 2024 8:59am3.2 10*3/uL1.8-7.7FOhio[facility] [id number] [address] [facility] [address]Ypzndzzyxmq # (Auto)December 07, 2024 9:28amSeptember 2024 9:47am3.1 10*3/uL1.8-7.7FOhio[facility] [id number] [address] [facility] [address]Wojnjnpcngk # (Auto)December 24, 2024 5:32amSeptember 2024 6:16am2.8 10*3/uL1.8-7.7FOhio[facility] [id number] [address] [facility] [address]Fikalxshqjh # (Auto)September 09, 2024 8:44amJune 2024 8:59am0.9 10*3/uLBelow low normal1.00-4.8[facility] [id number] [address] [facility] [address]Wcznxwnoros # (Auto)December 07, 2024 9:28amSeptember 2024 9:47am1.1 10*3/uL1.00-4.8[facility] [id number] [address] [place] [address]Ytjclxlhivf # (Auto)December 24, 2024 5:32amSeptember 2024 6:16am1.2 10*3/uL1.00-4.8[facility] [id number] [address] [place] [address] 22190Qrsvusvco # (Auto)September 09, 2024 8:44amJune 2024 8:59am 0.6 10*3/uL0.0-0.8[facility] [id number] [address] [place] [address] 84377Jmqrponxm # (Auto)December 07, 2024 9:28amSeptember 2024 9:47am0.5 10*3/uL0.0-0.8[facility] [id number] [address] [place] [address] 71020Sdyutyrha # (Auto)December 24, 2024 5:32amSeptember 2024 6:16am0.7 10*3/uL0.0-0.8[facility] [id number] [address] [place] [address] 75857Fahgrdxfggr # (Auto)September 09, 2024 8:44amJune 2024 8:59am0.1 10*3/uL0.0-0.45[facility] [id number] [address] [place] [address] 99659Pjmfphdkjgz # (Auto)December 07, 2024 9:28amSeptember 2024 9:47am0.1 10*3/uL0.0-0.45[facility] [id number] [address] [place] [address] 09380Rulkcoloogc # (Auto)December 24, 2024 5:32amSeptember 2024 6:16am0.2 10*3/uL0.0-0.45[facility] [id number] [address] [place], [place] [address]70Basophils # (Auto)September 09, 2024 8:44amJune 2024 8:59am 0.1 10*3/uL0.0-0.2FOhio[facility] [id number] [address] [place] [address] 57569Kwjofpjcz # (Auto)December 07, 2024 9:28amSeptember 2024 9:47am0.1 10*3/uL0.0-0.2FOhio[facility] [id number] [address] [place] [address] 78738Nxipkpemm # (Auto)December 24, 2024 5:32amSeptember 2024 6:16am0.1 10*3/uL0.0-0.2FOhio[facility] [id number] [address] [place] [address] 89826Uvtcnqgyi NeutrophilsSeptember 2023 6:52amSeptember 2023 8:23am76 %Above high jtabgr17-87TxnvcazwvMccullough-Hyde Memorial Hospital [facility] [id number] [address] [place] [address] 88006Qqgi Neutrophils %December 24, 2023 6:52amSeptember 2023 8:23am2 %0-[facility] [id number] [address] [place] [address] 36027Lliuvndnskk %December 24, 2023 6:52amSeptember 2023 8:23am15 %Below low -60GdhehbgonMccullough-Hyde Memorial Hospital Ctr [id number] [address] [place] [address] 55935Xbmnnris LymphocytesSeptember 2023 6:52amSeptember 2023 8:23am1 %0-12[facility] [id number] [address] [facility] [address]Vjvbjdwrp %December 24, 2023 6:52amSeptember 2023 8:23am1 %Below low normal2-11[facility] [id number] [address] [facility] [address]Dvzeztywxtg %December 24, 2023 6:52amSeptember 2023 8:23am3 %1-[facility] [id number] [address] [place] [address] 90514Xketjwgoh %December 24, 2023 6:52amSeptember 2023 8:23am2 %0-2FOhio[facility] [id number] [address] [facility] [address]Vbkhqfdds Red Blood Cells/100 WBCSeptember 2023 6:52am December 24, 2023 8:23am1 /100{WBC}Above high normal0-0[facility] [id number] [address] [facility] [address]Aov Blood Cell MorphologyDecember 2023 8:00amDecember 2023 9:02amN/[facility] [id number] [address] [facility] [address]SsxhrsrjavvuuSoheoqde 2023 8:00amDecember 2023 9:02am SlightMccullough-Hyde [facility] Hospital [facility] [id number] [address] [facility] [address]EfotsvbnkmsuKgbrtbtj 2023 8:00amDecember 2023 9:02am SlightMccullough-[facility] [id number] [address] [facility] [address]FbewwazavmPaexzjpst 2023 6:52amSeptember 2023 8:23amSlightMccullough-Hyde Memorial Hospital [facility] [id number] [address] [facility] [address]Hinrm BodiesNovember 2023 8:20amNovember 2023 9:30am SlightM[facility] [id number] [address] [facility] [address]Tgnki GranulationOctober 2023 9:52amOctober 2023 11:25amModerateMccullough-Hyde Memorial Hospital [facility]tr [id number] [address] [facility] [address]Rrlnfyaa EstimateDecember 2023 8:00amDecember 2023 9:02amDecreasedNormCincinnati [facility] [id number] [address] [facility] [address]Slyivemz Morphology CommentDecember 2023 8:00amDecember 2023 9:02amNormalNormCincinnati VA Medical Center [facility] [id number] [address] [facility] [address]Vnbeffg LevelJune 2024 8:44amJune 2024 9:21am83 mg/yC35-275PQS recommended reference rangeRandom Glucose Reference Range is dependent on time and content of last meal. Glucose of more than 200 mg/dL in a nonstressed, ambulatory subject supports the diagnosisof Diabetes Mellitus. [facility] [id number] [address] [facility] [address]Bhyvjrc LevelSeptember 2024 9:28amSeptember 2024 10:04am84 mg/lZ28-669QCO recommended reference rangeRandom Glucose Reference Range is dependent on time and content of last meal. Glucose of more than 200 mg/dL in a nonstressed, ambulatory subject supports the diagnosisof Diabetes Mellitus.[facility] [id number] [address] [facility] [address]Cehrira LevelSeptember 2024 5:32amSeptember 2024 6:37am88 mg/fT92-756FbzwfhpjgMccullough-Hyde Memorial Hospital [facility] [id number] [address] [facility] 28[address]Clckv Urea NitrogenJune 2024 8:44amJune 2024 9:21am 22 mg/dL7-[facility] [id number] [address] [facility] 39[address]Flbyc Urea NitrogenSeptember 2024 9:28amSeptember 2024 10:04am23 mg/dL7-[facility] [id number] [address] [facility] [address]Uanjw Urea NitrogenSeptember 2024 5:32amSeptember 2024 6:37am17 mg/dL7-[facility] [id number] [address] [facility] 10[address]ZmbftzrojxFvec 2024 8:44amJune 2024 9:21am0.70 mg/dL0.60-1.20[facility] [id number] [address] [facility] [address]MzyvpienfmAdybvlfqe 2024 9:28amSeptember 2024 10:04am 0.88 mg/dL0.60-1.20[facility] [id number] [address] [facility] [address]OpcvtwjwrsOwdjkvnic 2024 5:32amSeptember 2024 6:37am0.76 mg/dL0.60-1.20[facility] [id number] [address] [facility] [address]Hktdhbfml GFR (CKD-EPI)September 09, 2024 8:44amJune 2024 9:21am> 60.0 mL/MinMccullough-Hyde Memorial Hospital Ctr [id number] [address] [facility] [address]Rizgfgbdm GFR (CKD-EPI)December 07, 2024 9:28amSeptember 2024 10:04am> 60.0 mL/MinMccullough-Hyde Memorial Hospital [facility] [id number] [address] [facility] [address]Pggnczood GFR (CKD-EPI)December 24, 2024 5:32amSeptember 2024 6:37am> 60.0 mL/MinMccullough-Hyde [facility] [id number] [address] [facility] [address]Jsjeta LevelJune 2024 8:44amJune 2024 9:62oh276 mmol/P357-630XurgkzzhkMccullough-Hyde Memorial Hospital [facility] [id number] [address] [facility] [address]Ejszvz LevelSeptember 2024 9:28amSeptember 2024 10:73hu239 mmol/I252-144ThczxcfehMccullough-Hyde Memorial Hospital [facility] [id number] [address] [facility] 232[address]Thpaxy LevelSeptember 2024 5:32amSeptember 2024 6:18hj978 mmol/M760-576UkvcxbqztMccullough-Hyde Memorial Hospital [facility] [id number] [address] [facility] 24274Lrhopawig LevelJune 2024 8:44amJune 2024 9:21am4.0 mmol/L3.5-5.1FOhioHealth [facility] [id number] [address] [facility] 87239Lwpvtvyax LevelSeptember 2024 9:28amSeptember 2024 10:04am4.1 mmol/L3.5-5.1FOhioHealth Doctors Hospital [facility] [id number] [address] [facility] 11[address]Rxgfbonnd LevelSeptember 2024 5:32amSeptember 2024 6:37am4.1 mmol/L3.5-5.1FOhioHealth Doctors Hospital [facility] [id number] [address] [facility] [address]Muqrlsfa LevelJune 2024 8:44amJune 2024 9:56iv216 mmol/V08-522SywvqbrxiMccullough-Hyde Memorial Hospital [facility] [id number] [address] [facility] [address]Vbskwlub LevelSeptember 2024 9:28amSeptember 2024 10:63za008 mmol/M53-616GhritfgvgMccullough-Hyde Memorial Hospital [facility] [id number] [address] [facility] [address]Uwjenvak LevelSeptember 2024 5:32amSeptember 2024 6:02zn348 mmol/P81-013EtgfngepkMccullough-Hyde Memorial Hospital [facility] [id number] [address] [facility] [address]83[address]Wzjtyo Dioxide LevelJune 2024 8:44amJune 2024 9:21am27.5 mmol/L21.0-31.0[facility] [id number] [address] [facility] 293[address]Bzevte Dioxide LevelSeptember 2024 9:28amSeptember 2024 10:04am25.0 mmol/L21.0-31.0[facility] [id number] [address] [facility] 39796Pyaquo Dioxide LevelSeptember 2024 5:32amSeptember 2024 6:37am27.5 mmol/L21.0-31.0[facility] [id number] [address] [facility] 26256Luzrk GapJune 2024 8:44amJune 2024 9:21am9.5 mEq/L 6.0-15.0[facility] [id number] [address] [facility] 25686Luoqu GapSeptember 2024 9:28amSeptember 2024 10:04am 10.1 mEq/L6.0-15.0[facility] [id number] [address] [facility] 89468Pzwnr GapSeptember 2024 5:32amSeptember 2024 6:37am 10.6 mEq/L6.0-15.0[facility] [id number] [address] [facility] 74077Zpncygg LevelJune 2024 8:44amJune 2024 9:21am8.8 mg/dL8.6-10.3FOhioHealth [facility] [id number] [address] [facility] [address]Yifrvdx LevelSeptember 2024 9:28amSeptember 2024 10:04am8.9 mg/dL8.6-10.3FOhioHealth [facility] [id number] [address] [place] [address] 18632Fdgwjig LevelSeptember 2024 5:32amSeptember 2024 6:37am9.0 mg/dL8.6-10.3FOhioHealth [facility] [id number] [address] [facility] 407[address]Xjjigrzlfq LevelAugust 2023 1:05pmAugust 2023 1:56pm3.2 mg/dL2.5-4.5FOhioHealth Doctors Hospital [facility] [id number] [address] [facility] 27389Prccx ProteinJune 2024 8:44amJune 2024 9:21am5.9 g/dLBelow low normal6.4-8.9[facility] [id number] [address] [facility] 56675Cmdvz ProteinSeptember 2024 9:28amSeptember 2024 10:04am6.3 g/dLBelow low normal6.4-8.9[facility] [id number] [address] [place] [address] 66077Ufvlk ProteinSeptember 2024 5:32amSeptember 2024 6:37am6.3 g/dLBelow low normal6.4-8.9[facility] [id number] [address] [facility] 45398RqjquxyUvov 2024 8:44amJune 2024 9:21am3.9 g/dL 3.5-5.7FOhioHealth [facility] [id number] [address] [facility] 79694HtivzszFtdafkjfl 2024 9:28amSeptember 2024 10:04am4.1 g/dL3.5-5.7FOhioHealth [facility] [id number] [address] [facility] 41633MyubvklSwjqfogjv 2024 5:32amSeptember 2024 6:37am 4.2 g/dL3.5-5.7FOhioHealth Doctors Hospital [facility] [id number] [address] [facility] 15659ZwvvsiwaXjfw 2024 8:44amJune 2024 9:21am2.0 g/dL [facility] [id number] [address] [place] [address] 58260QixdlynxAyrovqpsg 2024 9:28amSeptember 2024 10:04am 2.2 g/dLMccullough-Hyde Memorial Hospital [facility] [id number] [address] [facility] 44958HgymerdcMhbnmrnyy 2024 5:32amSeptember 2024 6:37am 2.1 g/dLMccullough-Hyde Memorial Hospital [facility] [id number] [address] [place] [address] 20794Annpnvq/Globulin RatioJune 2024 8:44amJune 2024 9:21am2.0[facility] [id number] [address] [facility] 435[address]Yhzhave/Globulin RatioSeptember 2024 9:28amSeptember 2024 10:04am1.9[facility] [id number] [address] [facility] 68310Wuodwuv/Globulin RatioSeptember 2024 5:32amSeptember 2024 6:37am2.0[facility] [id number] [address] [facility] 353[address]Owusu BilirubinJune 2024 8:44amJune 2024 9:21am0.7 mg/dL0.3-1.0[facility] [id number] [address] [facility] 86349Yfrvi BilirubinSeptember 2024 9:28amSeptember 2024 10:04am0.7 mg/dL0.3-1.0[facility] [id number] [address] [facility] 07278Ppdit BilirubinSeptember 2024 5:32amSeptember 2024 6:37am1.1 mg/dLAbove high normal0.3-1.0[facility] [id number] [address] [facility] 81811Tgmsufxvo Amino Transf (AST/SGOT)September 09, 2024 8:44amJune 2024 9:21am18 U/J15-73OoyydathvMccullough-Hyde Memorial Hospital [facility]tr [id number] [address] [facility] 67689Osfuaaolu Amino Transf (AST/SGOT)December 07, 2024 9:28am December 07, 2024 10:04am20 U/S63-23ZrfnhrrazMccullough-Hyde Memorial Hospital [facility] [id number] [address] [facility] 36604Juztawryt Amino Transf (AST/SGOT)December 24, 2024 5:32am December 24, 2024 6:37am18 U/Y19-72FdeomzfxmMccullough-Hyde Memorial Hospital [facility]tr [id number] [address] [facility] 59180Zmsoqtj Aminotransferase (ALT/SGPT)September 09, 2024 8:44amJune 2024 9:21am15 U/L7-52[facility] [id number] [address] [facility] 87885Zjenozi Aminotransferase (ALT/SGPT)December 07, 2024 9:28am December 07, 2024 10:04am15 U/L7-52[facility] [id number] [address] [facility] 60376Mbimcsr Aminotransferase (ALT/SGPT)December 24, 2024 5:32am December 24, 2024 6:37am13 U/L7-52[facility] [id number] [address] [facility] 40441Txptwknr PhosphataseSeptember 09, 2024 8:44amJune 2024 9:21am93 U/N11-502JkmszsjtiMccullough-Hyde Memorial Hospital [facility] [id number] [address] [facility] 50227Gxsrrnte PhosphataseSeptember 2024 9:28amSeptember 2024 10:04am84 U/Y21-005TdybhfftiMccullough-Hyde Memorial Hospital [facility] [id number] [address] [facility] 69891Ydnjdoij PhosphataseSeptember 2024 5:32amSeptember 2024 6:37am88 U/E48-857MvxhicgwmMccullough-Hyde Memorial Hospital [facility] [id number] [address] [facility] 94358Aawqlzy DehydrogenaseJune 2024 8:44amJune 2024 9:81jm481 U/J827-533DhoyklwqdMccullough-Hyde Memorial Hospital [facility] [id number] [address] [facility] 22381Qqekotr DehydrogenaseSeptember 2024 9:28amSeptember 2024 10:98yh691 U/X498-399UyynigesaMccullough-Hyde Memorial Hospital [facility] [id number] [address] [facility] 65221Qclm AcidAugust 2023 1:05pmAugust 2023 1:56pm2.7 mg/dL2.3-6.6FOhioHealth [facility] [id number] [address] [facility] 40801Emrc LevelSeptember 2024 10:21amSeptember 2024 11:41am99 ug/lX08-146FenjdnlhuMccullough-Hyde Memorial Hospital [facility] [id number] [address] [place] [address] 65731Wywlg Iron Binding CapacitySeptember 2024 10:December 17, 2024 11:85vj606 ug/qL006-868SamdaufpaMccullough-Hyde Memorial Hospital [facility] [id number] [address] [place] [address] 10875Mioc SaturationSeptember 2024 10:21amSeptember 2024 11:41am27.1 %20-50[facility] [id number] [address] [facility] 92025ZlxvvvmgzhgSythioghu 2024 10:21amSeptember 2024 11:74dt554 mg/xB090-599ZzijgcumxMccullough-Hyde Memorial Hospital [facility] [id number] [address] [facility] 46701JjrizjwpObduevhyw 2024 10:21amSeptember 2024 12:03pm29.7 ng/mL11.0-306.8[facility] [id number] [address] [facility] 20601Nrdaedjrrbm LevelMarch 2024 8:14amMarch 2024 9:23am 169 mg/bJ481-515Lvnf less than 200 mg/dl low riskChol 201-239 mg/dl borderline riskChol 240 mg/dl and greater high riskMccullough-Hyde Memorial Hospital [facility] [id number] [address] [facility] 64304Jjuzgmcttsr LevelSeptember 2024 5:32amSeptember 2024 6:84qv812 mg/dI208-653Lyfp less than 200 mg/dl low riskChol 201-239 mg/dl borderline riskChol 240 mg/dl and greater high riskMccullough-Hyde [facility] [id number] [address] [facility] 48672DMQ CholesterolMarch 2024 8:14amMarc 2024 9:23am50 mg/aW46-24OLG CHOL ATP-III CLASSIFICATION Cardiovascular RiskHDL > or equal to 60 mg/dL LOWHDL < 40 mg/dL [facility] [id number] [address] [facility] 55072VGP CholesterolSeptember 2024 5:32amSeptember 2024 6:37am52 mg/mS76-70UCN CHOL ATP-III CLASSIFICATION Cardiovascular RiskHDL > or equal to 60 mg/dL LOWHDL < 40 mg/dL [facility] [id number] [address] [facility] 46289Dfmxztllyomzr LevelMarch 2024 8:14amMarch 2024 9:23am75 mg/dL0-149TRIG ATP III CLASSIFICATIONTRIG less than 150 mg/dL NormalTRIG 150-199 mg/dL Borderline highTRIG 200-500 mg/dL High TRIG greater than 500 mg/dL Very highStandard traceable to the Center for Disease Conrtrol and Prevention (CDC) test method.[facility] [id number] [address] [facility] 01381Uzgbtobvurtjd ReflexSeptember 2024 5:32amSeptember 2024 6:37am77 mg/dL0-149TRIG ATP III CLASSIFICATIONTRIG less than 150 mg/dL NormalTRIG 150-199 mg/dL Borderline highTRIG 200-500 mg/dL High TRIG greater than 500 mg/dL Very highStandard traceable to the Center for Disease Conrtrol and Prevention (CDC) test method.[facility] [id number] [address] [facility] 40512ZUN Cholesterol, CalculatedMarch 2024 8:14amMarch 2024 9:19xl431 mg/dLAbove high normal0-100LDL ATP III CLASSIFICATIONLDL less than 100 mg/dL OptimalLDL 100-129 mg/dL Near or above pwgxddlFKC366-402 mg/dL Borderline highLDL 160-189 mg/dL HighLDL greater than 189 mg/dL Very high [facility] [id number] [address] [facility] 97103KAC Cholesterol, CalculatedSeptember 2024 5:32amSeptember 2024 6:70qz552 mg/dLAbove high normal0-100LDL ATP III CLASSIFICATIONLDL less than 100 mg/dL OptimalLDL 100-129 mg/dL Near or above afoalfnNXO411-887 mg/dL Borderline highLDL 160-189 mg/dL HighLDL greater than 189 mg/dL Very high [facility] [id number] [address] [facility] 93157BEHJ CholesterolMarch 2024 8:14amMarch 2024 9:23am 15 mg/dLMccullough-Hyde [facility] [id number] [address] [facility] 20074BMSF CholesterolSeptember 2024 5:32amSeptember 2024 6:37am15 mg/dLMccullough-Hyde [facility] [id number] [address] [facility] 42715Lubjfpeedid/HDL RatioMarch 2024 8:14amMarch 2024 9:23am3.4<5.0[facility] [id number] [address] [facility] 11465Gkrjmddlbif/HDL RatioSeptember 2024 5:32amSeptember 2024 6:37am3.6<5.0[facility] [id number] [address] [facility] 35440Cosoxht B12 LevelSeptember 2024 10:21amSept2024 12:01gi448 pg/aJ109-194GyuvetnquMccullough-Hyde Memorial [facility] [id number] [address] [facility] 33261GrrzbhYclytmiqq 2024 10:21amSeptember 2024 12:07pm 14.2 ng/mL>5.9Folate reference range: >5.9 ng/mlThe WHO technical consultation on folate and vitamin s15aeguttbysrea has determined that folate concentrations lessthan 4 ng/ml are considered deficient.[facility] [id number] [address] [facility] 40132Azwayaa Stimulating Hormone 3rd GenNov2024 3:16pm February 04, 2025 5:33pm1.58 u[iU]/mL0.45-5.33[facility] [id number] [address] [facility] 0172583-Gysoqdt Vitamin D TotalNov2024 3:16pmNov2024 5:44pm33.0 ng/wE82-204ECRSNJF D STATUS 25(OH)VITAMIN D RANGE (ng/mL) Deficient <20 Insufficient 20 to <30Sufficient 30 to 100Reference: Madeleine MF,Kim NC, Gurwinder MANCUSO, et al. Evaluation,treatment, and prevention of vitamin D deficiency; an Endocrine Society clinical practice guideline. JCEM. 2010; 96(7):1911-30.[facility] [id number] [address] [facility] 26662Bifcjslg Creatinine Clearance (ChemJune 2024 8:44amJune 2024 9:21am71.80[facility] [id number] [address] [facility] 70271Zjkazazh Creatinine Clearance (ChemSeptember 2024 9:28am December 07, 2024 10:04am66.31[facility] [id number] [address] [place] [address] 89511Omjxesub Creatinine Clearance (ChemSeptember 2024 5:32am December 24, 2024 6:37amN/[facility] [id number] [address] [place] [address] 11771Yamoskn CreatinineJune 2024 9:15amJune 2024 9:18am 0.7 mg/dL0.6-1.3ER/ESD physician is notified/shown all ISTAT results.Critical values may be confirmed by laboratorytesting ifdeemed necessary by ER attending doctor.[facility] [id number] [address] [place] [address] 45944Zzqzyjv Estimated GFR (eGFR)September 09, 2024 9:15amSeptember 09, 2024 9:18am> 60.0[facility] [id number] [address] [place] [address] 57603Rybynbt GlucoseDecember 2023 7:59amDecember 2023 12:13pm93 mg/dLRandom Glucose Reference Range is dependent on time and content of last meal. Glucose of more than 200 mg/dL in a nonstressed, ambulatory subject supports the diagnosis of Diabetes Mellitus.Point of Care testing Diagnostic Imaging Reports Author Tae Russo [facility] HospitalAuthoredJuly 2023 1:58pmReportDictated Date/TimeDictated ByStatusRadiology ReportJuly 2023 1:58pmJoserayo Russo Jr DOcompleteM[facility] [place] [address] [place] [id number] Scan Report Signed Patient: Anne Marie Caldera MR#: [id number] : 1955 Acct:[id number] Age/Sex: 68 / F ADM Date: 4 Loc: XT [facility]: [facility] Attending Dr: Berta King MD Copies to: Berta King MD~ Ordering Provider: Berta King MD Date of Service: 10/10/23 CT/CT chest w con: R59.1 - Generalized enlarged lymph nodes CT CHEST WITH INTRAVENOUS CONTRAST: CLINICAL HISTORY: Enlarged lymph nodes. Lymph nodes removed from neck 3 days ago. COMPARISON: Chest 08/06/2023 TECHNIQUE: Spiral images were obtained through the chest following intravenous administration of IV contrast. This CT exam was performed using one or more following dose reduction techniques: Automated exposure control, adjustment of the mA and/or kV according to patient size, or use of iterative reconstruction technique. FINDINGS: Mediastinum:Presumed postoperative changes are seen involving the left neck with associated gas and fluid present partially visualized on today's study. Thoracic aorta demonstrates mild calcification without aneurysm. Pulmonary trunk appears nondilated. Small amount of pericardial fluid is present. A few droplets of air seen involving the mediastinum likely postoperative. No lymphadenopathy. The esophagus is grossly unremarkable. Lungs:Small right-sided pleural effusion. No consolidation pneumothorax or pleural effusion. Calcified granuloma right lower lobe. Mild lung scarring. Abd:Liver cyst. No acute findings. Partially visualized lymphadenopathy involving the retrocrural regions extending into the retroperitoneum as well as the periportal and portal caval regions.. Soft tissues/Bones: Soft tissues surrounding the chest wall demonstrate no acute findings. Osseous structures demonstrate degenerative change. CT/CT chest w con IMPRESSION: 1. Presumed postoperative changes are seen involving the left neck partially visualized on today's study with associated gas and fluid present. There appears to be gas extending into the mediastinum also likely postoperative. 2. Lymphadenopathy involving the retrocrural regions extending into the retroperitoneum, periportal and portacaval regions possibly related to lymphoma. This can be further evaluated by CT abdomen and pelvis. 3. Small right-sided pleural effusion. Impression dictated by: Tae Russo Jr., D.OGagan10/10/2023 2:06 PM Dictation Location: [place] [address] Transcribed By: [facility] 10/10/23 1406 Dictated By: Tae Russo Jr, DO 10/10/23 1358 Signed By: <Electronically signed by Tae Russo Jr, DO in OV> 10/10/23 1406 Author Cr Solorzano [facility] HospitalAuthoredJuly 2023 12:58pmReportDictated Date/TimeDictated ByStatusRadiology ReportJuly 2023 12:58pmNuria JohnsonADENA FAYETTE [place] [address] Nuclear Medicine Report Signed Patient: Anne Marie Caldera MR#: [id number] : 1955 Acct:[id number] Age/Sex: 68 / F ADM Date: 4 Loc: XT Room: [facility] Attending Dr: Berta King MD Copies to: Berta King MD Castro ValleyCr DO~ Ordering Provider: Berta King MD Date of Service: 10/17/23 PET/PET tumor init tx strat sb-mt: R59.1 - General ized enlarged lymph nodes PET/CT FUSION IMAGING CLINICAL INFORMATION: Non-Hodgkin's B-cell lymphoma. Enlarged lymph nodes. COMPARISON : CT chest of 10/10/2023 TECHNIQUE: Noncontrasted CT scan from the base of the skull to the upper thigh followed by PET imaging. Multiplanar PET/CT fusion images. The blood sugar is 87mg/dL. The F-18 FDG amount is 13.4mCi. FINDINGS: ORAL CAVITY: HYPERMETABOLISM: Physiologic hypermetabolism of the oral cavity is present. 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 ANTERIOR TWO THIRDS OF THE TONGUE: Unremarkable ROOF OF THE MOUTH: Unremarkable BUCCAL CAVITY: Unremarkable FLOOR OF THE MOUTH: Unremarkable DENTITION: Unremarkable TONSILS: Unremarkable PHARYNX: HYPERMETABOLISM: Physiologic uptake of the pharynx identified. Physiologic uptake can be asymmetrical. If there is continued clinical concern for a malignancy, direct visualization recommended. NASOPHARYNX: Unremarkable OROPHARYNX: Unremarkable TONGUE BASE: Unremarkable HYPOPHARYNX: Unremarkable EPIGLOTTIS: The epiglottis is normal. LARYNX: HYPERMETABOLISM: Physiologic uptake identified within the region of the larynx. This can be related to muscular activity. This may also be asymmetrical. There is continued clinical concern for malignancy, then direct visualization recommended. FALSE CORD: Unremarkable VESTIBULE: Unremarkable TRUE CORD: Unremarkable THYROID CARTILAGE: Unremarkable CRICOID CARTILAGE: Unremarkable NECK SPACES: HYPERMETABOLISM: 2 postoperative changes involving the left-sided neck with regions of fluid collection redemonstrated. VISCERAL SPACE: Unremarkable CAROTID SPACE: Unremarkable RETROPHARYNGEAL SPACE: Unremarkable POSTERIOR CERVICAL SPACE: Unremarkable PREVERTEBRAL SPACE: Unremarkable CAROTID CIRCULATION AND JUGULAR VEINS No vascular abnormality identified. ADENOPATHY: HYPOMETABOLISM: There is mild hypermetabolism of cervical lymph nodes which are not pathologically enlarged. The SUV values are below 2.0 suggestive of a tiera ign etiology. No significant adenopathy identified. The levels assessed include the submental and submandibular, upper jugular, mid jugular, lower jugular and medial supraclavicular, posterior triangle and supraclavicular, anterior cervical, retropharyngeal and retrostyloid, parotid, buccofacial, and retroauricular and occipital. SALIVARY GLANDS: HYPERMETABOLISM: There is appropriate hypermetabolism involving the salivary glands. There is no worrisome disproportionate uptake identified. There is no worrisome focal uptake identified. PAROTID GLANDS: Unremarkable SUBMANDIBULAR GLANDS: Unremarkable SUBLINGUAL GLANDS: Unremarkable THYROID GLAND: HYPERMETABOLISM: The distribution of hypermetabolism of the thyroid gland is within normal limits. No thyroid nodule identified. AIRWAY: Central airway is patent. ESOPHAGUS: Esophagus normal course and caliber. HEART: Heart is not enlarged. Normal FDG uptake identified. PERICARDIAL EFFUSION: None CORONARY ARTERY CALCIFICATION: None MEDIASTINUM: Hypermetabolic subcarinal mediastinal lymph node identified. Maximal dimension 19 mm. SUV value 9.5. HILAR REGION: No hilar mass or adenopathy is seen. There is mild hypermeta bolism of hilar lymph nodes. The maximal SUV value is less than 2.0 favoring benign etiology. THORACIC AORTA: No thoracic aortic aneurysm or dissection. Atherosclerosis LUNG INTERSTITIUM: No infiltrate or congestion identified. No worrisome regions of lung hypermetabolism identified. PLEURAL EFFUSION small right pleural effusion redemonstrated. Slightly larger. PNEUMOTHORAX: No pneumothorax seen. LUNG NODULE: No lung nodules identified. CHEST WALL: No chest wall abnormality seen. The bony chest intact. LIVER: No hepatic mass or intrahepatic biliary ductal dilatation is identified. And numerous hepatic cysts Normal density of the liver parenchyma identified. The uptake of FDG throughout the liver is homogeneous without worrisome findings. GALLBLADDER: No gallbladder abnormalities identified. BILE DUCTS: No biliary duct dilatation identified. SPLEEN: Normal PANCREAS: Unremarkable ADRENAL GLANDS: The adrenal glands are unremarkable. KIDNEYS: Unremarkable Asymmetric physiologic uptake of the renal collecting system and ureter is identified. ABDOMINAL AORTA: The abdominal aorta is normal. RETROPERITONEUM: Hypermetabolic lymphadenopathy in the retroperitoneum extending the retrocrural, periportal and portacaval regions. Maximal SUV value 12.7 SMALL BOWEL: The small bowel loops are nondistended. APPENDIX: The appendix is normal. COLON: There is no colitis or diverticulitis. There is physiologic uptake identified throughout the colon. The asymmetric uptake can be seen with physiologic uptake. No discrete focal region of hypermetabolism seen to correspond with focal lesion. Correlate with clinical symptomatology. URINARY BLADDER: Urinary bladder is unremarkable. There may be physiologic hypermetabolic uptake identified within the urinary bladder. REPRODUCTIVE STRUCTURES: The reproductive structures are unremarkable. FREE AIR: None FREE FLUID: None ABDOMINAL WALL: The bony structures are unremarkable. No subcutaneous soft tissue abnormality identified. INGUINAL HERNIA: None PET/PET tumor init tx strat sb-mt IMPRESSION: Hypermetabolic subcarinal, periaortic retroperitoneal, retrocrural, periportal and portacaval lymphadenopathy consistent with lymphoma. PRELIMINARY RESULTS: None given Impression dictated by: Cr Solorzano M.D.10/17/2023 1:26 PM Dictation Location: [place] [address] Transcribed By: [facility] 10/17/23 1326 Dictated By: Cr Solorzano DO 10/17/23 1258 Signed By: <Electronically signed by Cr Solorzano DO in OV> 10/17/23 1326 Author Blayne Choi [facility] HospitalAuthoredAugallup indian medical center 2023 1:51pmReportDictated Date/TimeDictated ByStatusRadiology ReportAumescalero service unitt 2023 1:51pmBlayne Choi II [facility] [place] [address] [place] [address] CT Scan Report Signed Patient: Anne Marie Caldera MR#: [id number] : 1955 Acct:[id number] Age/Sex: 68 / F ADM Date: 4 Loc: XT Room: [facility] Attending Dr: Berta King MD Copies to: Berta King MD~ Ordering Provider: Berta King MD Date of Service: 11/21/23 CT/CT angio chest PE protocol: New active tx patient on chemo with SOB CT angio chest PE protocol 11/21/2023 1:42 PM SIGN AND SYMPTOMS: Shortness of breath and chest heaviness, non-Hodgkin's lymphoma, chemotherapy CONTRAST: 61 mL of intravenous Isovue-370 TECHNIQUE: Multidetector CT axial slices of the chest were obtained with IV contrast. Multiplanar reformats were performed and viewed on a separate workstation and reviewed to further define anatomy and possible pathology. CT was performed with one or more of the following dose reduction techniques: Automated exposure control, adjustment of the mA and/or kV according to patient size, or use of iterative reconstruction technique. COMPARISON: 10/10/2023 FINDINGS: Lower neck: Thyroid gland within normal limits, no supraclavicle adenopathy. Vessels: Atherosclerotic changes are noted in the thoracic aorta and coronary arteries. There is no evidence of pulmonary embolism. The ascending thoracic aorta is upper limits of normal for diameter measuring 4.1 cm. Mediastinum and Maggie: Within normal limits. Heart: Normal size. There is a small pericardial effusion.. Airways: Within normal limits Lungs: There is mild dependent atelectasis. Compressive atelectasis is noted in the right lower lobe secondary to a large right-sided pleural effusion. Pleura: There is a large right-sided pleural effusion. Chest Wall: Within normal limits. Upper Abdomen: Cysts are noted within the liver similar to prior studies. There is partial visualization of retroperitoneal lymphadenopathy which shows slight interval decrease in prominence when compared to the prior exam. Bones: Degenerative changes are noted in the thoracic spine. CT/CT angio chest PE protocol IMPRESSION: There is a large right-sided pleural effusion which has increased in size when compared to the prior exam. No evidence of pulmonary embolism. There is a small pericardial effusion. This is unchanged. There is partial visualization of retroperitoneal lymphadenopathy with slight interval decrease in prominence when compared to the prior exam. Impression dictated by: Blayne Choi M.D.11/21/2023 2:00 PM Dictation Location: [place] [address] Transcribed By: [facility] 11/21/23 1400 Dictated By: Blayne Choi II, MD 11/21/23 1351 Signed By: <Electronically signed by Blayne Choi II, MD in OV> 11/21/23 1400 Author Sandrine Patricia [facility] HospitalredSeptember 2023 4:09pmReport Dictated Date/TimeDictated ByStatusRadiology ReportSeptember 2023 4:09pm Sandrine Pacheco Marcelo PatriciaAultman [facility] [place] [address] [place] [address] MRI Report Signed Patient: Anne Marie Caldera MR#: [id number] : 1955 Acct:[id number] Age/Sex: 68 / F ADM Date: 4 Loc: XT Room: Type: [facility] Attending Dr: Berta King MD Copies to: Berta King MD~ Ordering Provider: Berta King MD Date of Service: 12/02/23 MR/MR lumbar spine wo/w con: C85.88 - Other specified types of non-Hodgkin lymphoma, l... MRI LUMBAR SPINE WITHOUT AND WITH INTRAVENOUS CONTRAST COMPARISON: Plain films 12/13/2009 CLINICAL DATA: Back pain. History of non-Hodgkin's B-cell lymphoma Multiecho imaging in the axial and sagittal plane was performed before and after intravenous administration of 17 mL of ProHance. Levoscoliotic curvature is present. No acute compression fractures or marrow edema are noted. There is nonspecific heterogeneity of the marrow signal, without discrete lesions. There are some degenerative endplate signal changes. There are scattered Schmorl's nodes, largest at the inferior endplate of L1. There is endplate spurring. The conus medullaris is within normal limits for caliber, position and signal. No abnormal enhancement is noted. There are small left renal cysts. There is a large cyst that may be arising from the right kidney though could also be hepatic . No definite adenopathy is noted in the field of view. At T12-L1, there is narrowing of the disc space. There is mild disco- osteophytic bulging with slight thecal sac effacement. There is no significant foraminal stenosis. At L1-2, there is narrowing of the disc space. There is mild disco-osteophytic bulging, slightly asymmetric toward the left. There is minor facet and ligamentous hypertrophy. There is mild central stenosis. There is mild right and mild to moderate left foraminal encroachment. At L2-3, there is narrowing of the space. Disco-osteophytic bulging is present greater through the neural foramen and extending laterally. There is facet and ligamentous hypertrophy. Moderate right and mild left foraminal encroachment are seen. At L3-4, there is narrowing of the disc space. Disco-osteophytic bulging is visualized, greater toward the neural foramen and asymmetric on the right. There is facet and mild ligamentous hypertrophy. There is mild to moderate thecal sac effacement as well as moderate right and mild left foraminal encroachment. At L4-5, there is narrowing of the disc space. There is moderate disco- osteophytic bulging. There is facet and ligamentous hypertrophy, left side slightly greater than right. There is moderate to severe central stenosis. There is also moderate right and moderately severe left foraminal encroachment. At the lumbosacral junction, there is narrowing of the space. There is mild disco-osteophytic bulging which is asymmetric extending through the left neural foramen laterally. Bilateral facet hypertrophy is seen. There is only minimal thecal sac effacement. There is mild to moderate left foraminal encroachment. MR/MR lumbar spine wo/w con IMPRESSION: SLIGHT LEVOSCOLIOSIS. NO ACUTE COMPRESSION FRACTURES. MULTILEVEL DISCOVERTEBRAL DEGENERATIVE CHANGES WITH ASSOCIATED STENOSIS, GREATEST AT L4-5 OUTLINED ABOVE. Impression dictated by: Sandrine Patricia M.D.12/02/2023 4:28 PM Dictation Location: [place] [address] Transcribed By: [facility] 12/02/23 1628 Dictated By: Sandrine Patricia MD 12/02/23 1609 Signed By: <Electronically signed by MD Sandrine Patricia in OV> 12/02/23 1628 Author Blayne Choi [facility] HospitalAuthoredSeptember 2023 4:06pmReport Dictated Date/TimeDictated ByStatusRadiology ReportSeptember 2023 4:06pm Blayne Choi II [facility] [place] [address] [place] [address] MRI Report Signed Patient: Anne Marie Caldera MR#: [id number] : 1955 Acct:[id number] Age/Sex: 68 / F ADM Date: 4 Loc: XT Room: Type: [facility] Attending Dr: Berta King MD Copies to: Berta King MD~ Ordering Provider: Berta King MD Date of Service: 12/03/23 MR/MR thoracic spine wo/w con: C85.88 - Other specified types of non-Hodgkin lymphoma, l... ([id number]) XR/XR pre/post mri xray: LYMPHADENOPATHY MR thoracic spine wo/w con, XR pre/post mri xray 12/03/2023 1:50 PM SIGNS AND SYMPTOMS: C85.88 - Other specified types of non-Hodgkin lymphoma, l... PROTOCOL: Multiplanar multisequence MR images of the thoracic spine were obtained with and without IV contrast. Frontal and lateral radiographs of the thoracic spine. CONTRAST: 16 mL of intravenous ProHance COMPARISON: None. FINDINGS: Radiographs of the thoracic spine: There is a right-sided Ieyamg-a-Irgd. Atherosclerotic changes are noted in the thoracic aorta. There is mild disc height loss with osteophyte formation throughout the lower thoracic spine. There is a right-sided pleural effusion with airspace opacity along the right heart border. MRI thoracic spine: The bones of the thoracic spine are in anatomic alignment. There is preservation of vertebral body heights. Disc height loss is noted in the lower thoracic spine. The marrow signal is within normal limits. No epidural or paraspinous fluid collection is appreciated. The visualized paraspinous soft tissues are within normal limits. There is a large right-sided pleural effusion. No abnormal postcontrast enhancement. At T1-T2: There is a normal disc, central canal, and neural foramen. At T2-T3: There is a normal disc, central canal, and neural foramen. At T3-T4: There is a normal disc, central canal, and neural foramen. At T4-T5: There is a normal disc, central canal, and neural foramen. At T5-T6: There is a normal disc, central canal, and neural foramen. At T6-T7: There is a normal disc, central canal, and neural foramen. At T7-T8: There is a normal disc, central canal, and neural foramen. At T8-T9: There is a normal disc, central canal, and neural foramen. At T9-T10: There is a normal disc, central canal, and neural foramen. At T10-T11: There is a broad-based disc bulge with facet hypertrophy. There is mild spinal canal narrowing and mild bilateral neural foraminal narrowing. At T11-T12: There is a broad-based disc bulge with facet hypertrophy. There is mild spinal canal narrowing and mild bilateral neural foraminal narrowing. At T12-L1: There is a normal disc, central canal, and neural foramen. MR/MR thoracic spine wo/w con IMPRESSION: At T10-T11: There is a broad-based disc bulge with facet hypertrophy. There is mild spinal canal narrowing and mild bilateral neural foraminal narrowing. At T11-T12: There is a broad-based disc bulge with facet hypertrophy. There is mild spinal canal narrowing and mild bilateral neural foraminal narrowing. There is a large right-sided pleural effusion. No abnormal postcontrast enhancement. Impression dictated by: Blayne Choi M.D.12/03/2023 4:18 PM Dictation Location: [place] [address] Transcribed By: [facility] 12/03/23 1618 Dictated By: Blayne Choi II, MD 12/03/23 1606 Signed By: <Electronically signed by Blayne Choi II, MD in OV> 12/03/23 1618 Author Sandrine Patricia [facility] HospitalAuthoredSeptember 2023 10:41amReport Dictated Date/TimeDictated ByStatusRadiology ReportSeptember 2023 10:41am Marcelo BoswellompleteMarietta [place] [address] Nuclear Medicine Report Signed Patient: Anne Marie Caldera MR#: [id number] : 1955 Acct:[id number] Age/Sex: 68 / F ADM Date: 4 Loc: XT Room: Type: [facility]CR Attending Dr: Berta King MD Copies to: MD Sandrine Christensen MD~ Ordering Provider: Berta King MD Date of Service: 12/24/23 PET/PET tumor subq tx strat sb-mt: C85.88 - Other specified types of non-Hodgkin lymphoma, l... 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 Patient's blood glucose level at the time of injection was 93 mg/dL. Spiral unenhanced CT was also performed for anatomic localization. The PET and CT images were fused. This CT exam was performed using one or more following dose reduction techniques: Automated exposure control, adjustment of the mA and/or kV according to patient size, or use of iterative reconstruction technique. NECK: The left neck mass with mild peripheral FDG uptake at the time of the comparison is not longer seen. There are no developing hypermetabolic cervical lymphadenopathy. There is mild diffuse bone uptake that may relate to therapy. There is physiologic muscular activity at the neck anteriorly. CHEST: No enlarged or hypermetabolic mediastinal, hilar or axillary lymph nodes are currently present. There is a large right pleural effusion. There is also consolidation of lung at the right middle and lower lobes. This is significant progression since the prior. No associated increased FDG uptake is present. There is no abnormal pulmonary nodularity within the aerated portions of lung. There is some additional bone uptake which might be related to therapy. ABDOMEN/PELVIS: There are scattered areas of photopenia within the liver correlating with cysts. There is no abnormal liver uptake. No adrenal abnormalities are seen. No enlarged or hypermetabolic abdominal or pelvic lymph nodes are currently present. The retrocrural and retroperitoneal lymph nodes seen on the comparison CT have also essentially resolved. There is physiologic activity at the urinary tract. There is additional diffuse patchy bone uptake. PET/PET tumor subq tx strat sb-mt IMPRESSION: THERAPY RESPONSE WITH NO RESIDUAL HYPERMETABOLIC LYMPH NODES. THE NODES HAVE ALSO SIGNIFICANTLY DECREASED IN SIZE SINCE PREVIOUS IMAGING. DIFFUSE BONE UPTAKE THAT MAY RELATE TO THERAPY. ENLARGING RIGHT PLEURAL EFFUSION WELL RIGHT BASILAR CONSOLIDATION. Impression dictated by: Sandrine Patricia M.D.12/24/2023 10:51 AM Dictation Location: [place] [address] Transcribed By: [facility] 12/24/23 1051 Dictated By: Sandrine Patricia MD 12/24/23 1041 Signed By: <Electronically signed by MD Sandrine Patricia in OV> 12/24/23 1051 Author Sandrine Patricia [facility] HospitalAuthoredDearizona spine and joint hospital 2023 12:14pmReport Dictated Date/TimeDictated ByStatusRadiology ReportDearizona spine and joint hospital 2023 12:14pm Sandrine Patricia [facility] [place] [address] [place] [address] Nuclear Medicine Report Signed Patient: Anne Marie Caldera MR#: [id number] : 1955 Acct:[id number] Age/Sex: 69 / F ADM Date: 4 Loc: Room: Type: [facility] Attending Dr: Berta King MD Copies to: MD Sandrine Christensen MD~ Ordering Provider: Berta King MD Date of Service: 03/01/24 PET/PET tumor subq tx strat sb-mt: C85.88 - Other specified types of non-Hodgkin lymphoma, l... PET/CT WITH FUSION CLINICAL DATA: Follow-up B-cell lymphoma COMPARISON: 12/24/2023 Following the intravenous administration of 11.17 mCi of FDG, SPECT imaging in 3 planes was performed from the level the orbits through the groin. Patient's blood glucose level at the time of injection was 93 mg/dL. Spiral unenhanced CT was also performed for anatomic localization. The PET and CT images were fused. This CT exam was performed using one or more following dose reduction techniques: Automated exposure control, adjustment of the mA and/or kV according to patient size, or use of iterative reconstruction technique. NECK: There is minor asymmetric increased uptake at the right vocal cord, undetermined significance as there is no corresponding abnormality on the CT . There are no enlarged or hypermetabolic cervical lymph nodes. CHEST: No enlarged or hypermetabolic mediastinal, hilar or axillary lymph nodes are visualized. No abnormal FDG uptake is seen within the lungs. 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 There is consolidated lung in the perihilar region and at the right lower lobe. ABDOMEN/PELVIS: There are areas of photopenia involving the liver related to cysts seen on CT. There are no hypermetabolic hepatic abnormalities. No abnormal adrenal nodularity is seen. No enlarged or hypermetabolic abdominal or pelvic lymphadenopathy is present. There is physiologic activity involving the urinary tract. SKELETAL: There is still mild diffuse increased uptake involving the bony structures. There are no focal areas of disproportionate uptake. This might relate to therapy. PET/PET tumor subq tx strat sb-mt IMPRESSION: NO RESIDUAL OR DEVELOPING HYPERMETABOLIC ADENOPATHY. MILD ASYMMETRIC INCREASED UPTAKE AT THE RIGHT VOCAL CORD, UNKNOWN SIGNIFICANCE. PERSISTENT LARGE RIGHT PLEURAL EFFUSION WITH ASSOCIATED CONSOLIDATION, GREATEST AT THE RIGHT LOWER LOBE. Impression dictated by: Sandrine Patricia M.D.03/01/2024 12:23 PM Dictation Location: [place] [address] Transcribed By: PAYAM 03/01/24 1223 Dictated By: Sandrine Patricia MD 03/01/24 1214 Signed By: <Electronically signed by MD Sandrine Patricia in OV> 03/01/24 1223 Author Sandrine Patricia [facility] HospitalAuthoredKettering [facility] 2024 8:00amReportDictated Date/TimeDictated ByStatusRadiology ReportKettering Health Troy 2024 8:00amSandrine Patricia [facility] [address] [place] [address] Mammography Report Signed Patient: Anne Marie Caldera MR#: [id number] : 1955 Acct:[id number] Age/Sex: 69 / F Adm Date: 5 Loc: Room: Type: [facility] RCR Attending Dr: Berta King MD Ordering Provider: Berta King MD Date of Service: 06/18/24 Procedure(s): MM diagnostic mammo BI w/CAD; US breast RT limited Accession Number(s): ([id number]) MM/MM diagnostic mammo BI w/CAD: sore lump right breast ([id number]) US/US breast RT limited: N63.10 - Unspecified lump in the right breast, unspecifie... Copies to: MD Boom Christensen DO Donald L Cundiff, MD~ CLINICAL DATA: lump and pain at the superior central right breast. BILATERAL DIAGNOSTIC MAMMOGRAMS - FULL FIELD DIGITAL WITH TOMOSYNTHESIS AND CAD Tomosynthesis craniocaudal and mediolateral oblique views of both breasts were obtained using low-dose digital technique. A spot compression tomosynthesis synthesis the CT was also performed on the right Comparison is made to prior studies from June 20, 2013 through March 29, 2022. This examination was reviewed with the aid of CAD. There are scattered fibroglandular densities. Similar asymmetries are present. Vascular calcifications are seen. There are no developing masses, typically malignant calcifications or architectural distortion. There has been no significant interval change. LIMITED RIGHT BREAST ULTRASOUND Real-time ultrasound evaluation of the superior central breast was performed in the area indicated by the patient. There is normal breast architecture. There are small cystic areas and duct ectasia which becomes more prominent closer to the nipple. No solid masses or other suspicious abnormalities are seen. MM/MM diagnostic mammo BI w/CAD IMPRESSION: NO MAMMOGRAPHIC EVIDENCE OF MALIGNANCY. NO IMAGING FINDINGS TO ACCOUNT FOR PATIENT'S SYMPTOMS. CLINICAL MANAGEMENT IS THEREFORE SUGGESTED. ROUTINE FOLLOW-UP IS RECOMMENDED IN ONE YEAR. RESULT CODE: 2 Benign Findings(s) DENSITY CODE: 2 (approximately 25-50% glandular) FOLLOW UP: 1YR The false-negative rate of mammography is approximately 10-percent. Management of a palpable abnormality must be based on clinical grounds. Patient was entered into a reminder system with a target due date for the next mammogram. Impression dictated by: Sandrine Patricia M.D.06/18/2024 9:02 AM Dictation Location: [facility] Dictated By: Sandrine Patricia MD 06/18/24 0800 Signed By: <Electronically signed by MD Sandrine Patricia in OV> 06/18/24 0902 Author Sandrine Patricia [facility] HospitalAuthoredJune 2024 11:22amReportDictated Date/TimeDictated ByStatusRadiology ReportJune 2024 11:22amMarcelo BoswellompMemorial [place] [address] CT Scan Report Signed Patient: Anne Marie Caldera MR#: [id number] : 1955 Acct:[id number] Age/Sex: 69 / F ADM Date: 5 Loc: XT Room: Type: [facility] RCR Attending Dr: Berta King MD Copies to: Berta King MD~ Ordering Provider: Berta King MD Date of Service: 09/09/24 CT/CT chest w con: Z01.89 - Encounter for other specified special examinations ([id number]) CT/CT abdomen pelvis w con: Z01.89 - Encounter for other specified special examinations CT CHEST, ABDOMEN AND PELVIS WITH INTRAVENOUS CONTRAST: CLINICAL HISTORY: 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 COMPARISON: 11/21/2023 chest, 09/19/2023 abdomen/pelvis and 03/01/2024 PET/CT TECHNIQUE: Spiral images were obtained through the chest, abdomen and pelvis following oral and intravenous administration of 90 mL of Isovue-300. Images of the chest were reviewed using both narrow and wide window settings. This CT exam was performed using one or more following dose reduction techniques: Automated exposure control, adjustment of the mA and/or kV according to patient size, or use of iterative reconstruction technique. The heart is top normal in size. No pericardial effusion is present. Minor coronary disease is seen. There is mild dilatation of the ascending aorta with diameter of 4.3 cm. This is unchanged. No dissection is seen. There is atherosclerotic plaque at the aortic arch, descending aorta and proximal great vessels. Plaque is also seen at the carotid bifurcation on the right. There are calcified subcarinal and right hilar lymph nodes. No pathologic mediastinal, hilar or axillary adenopathy is noted. There is a right-sided Qcqghp-p-Jnxw catheter. A small right layering pleural effusion is present, significantly improved from the previous exams. There are some adjacent lower lobe compressive atelectasis. There is also dependent atelectasis on the left. Minor scarring is seen at the lung apices. There is no pneumothorax or developing pulmonary nodularity. A calcified right lower lobe granuloma is again noted. Subtle thoracolumbar dextroscoliotic curvature and endplate spurring are present at the spine. A sclerotic area is again seen at the lateral right 10th rib. Multiple scattered hepatic cysts are again seen, largest at the posterior right lower lobe measuring approximately 6.6 cm in size. No calcified gallstones are identified. Moderate dilatation of the common duct is again visualized though there is no choledocholithiasis. The spleen is normal in size and attenuation. There are calcified splenic granulomas. The pancreas is normal in size and contour. There is still slight prominence of the pancreatic duct. A duodenal diverticulum is again noted. There is slight thickening of the left adrenal limbs. The renal nephrograms are symmetric. No hydronephrosis is noted. Small renal cysts are present. There is mild atherosclerotic plaque involving the aorta and iliac arteries. There is no pathologic abdominal lymphadenopathy at this time. No ascites is seen. The small bowel loops are normal caliber. Stool is visualized throughout the colon. S-shaped thoracolumbar scoliotic curvature. Degenerative changes are seen at the spine with associated stenosis, greatest at L4-5 Images through the pelvis show normal caliber small bowel loops. There is no appendiceal inflammation. Stool is visualized at the distal colon. No diverticular disease is noted. The uterus is retroverted and tilted toward the left. There are no adnexal cysts. The urinary bladder shows no abnormalities for the degree of distention. No pathologic lymphadenopathy or ascites is identified. CT/CT chest w con IMPRESSION: NO PATHOLOGIC ADENOPATHY. SIMILAR ASCENDING AORTIC DILATATION. SMALL RESIDUAL RIGHT PLEURAL EFFUSION, SIGNIFICANTLY IMPROVED FROM PREVIOUS STUDIES. MINOR ATELECTASIS AND SCARRING. HEPATIC AND RENAL CYSTS. SIMILAR COMMON AND PANCREATIC DUCTAL PROMINENCE, WITHOUT EVIDENCE OF STONES. MODERATE COLONIC STOOL. NO ACUTE FINDINGS. Impression dictated by: Sandrine Patricia M.D. 09/09/2024 12:17 PM Dictation Location: [place] [address] Transcribed By: [facility] 09/09/24 1217 Dictated By: Sandrine Patricia MD 09/09/24 1122 Signed By: <Electronically signed by MD Sandrine Patricia in OV> 09/09/24 1217 Author Blayne Choi [facility] HospitalAuthoredArtondale 2024 11:26amReportDictated Date/TimeDictated ByStatusRadiology ReportAugust 2024 11:26amMarbatool Choi II [facility] [place] [address] [place], [place] [id number] Ultrasound Report Signed Patient: Anne Marie Caldera MR#: [id number] : 1955 Acct:[id number] Age/Sex: 69 / F ADM Date: 5 Loc: UL Room: Type: [facility] SDC Attending Dr: Berta King MD Ordering Provider: Berta King MD Date of Service: 11/19/24 US/US abdomen limited: J90 Copies to: Berta King MD~ US abdomen limited 11/19/2024 1:15 PM SIGNS AND SYMPTOMS: Pleural effusion PROTOCOL: Grayscale sonographic images of the right pleural space COMPARISON: 10/22/2024 FINDINGS: A right-sided pleural effusion is redemonstrated showing no significant interval change when compared to the prior study. No drainable fluid collection. US/US abdomen limited IMPRESSION: A right-sided pleural effusion is redemonstrated showing no significant interval change when compared to the prior study. No drainable fluid collection. Impression dictated by: Blayne Choi M.D. 11/20/2024 11:28 AM Dictation Location: [place] [address] Tech: Martha W[place] Transcribed By: PAYAM 11/20/24 1128 Dictated By: Blayne Choi II, MD 11/20/24 1126 Signed By: <Electronically signed by Blayne Choi II, MD in OV> 11/20/24 1128 Author Cr Solorzano [facility] HospitalAuthoredNovember 2024 8:25pmReportDictated Date/TimeDictated ByStatusRadiology ReportNovember 2024 8:25pmManda JohnsonAultman Orr[facility] Main [place] [id number] XRay Report Signed Patient: Anne Marie Caldera MR#: [id number] : 1955 Acct:[id number] Age/Sex: 69 / F ADM Date: 5 Loc: XD Room: Type: [facility] CLI Attending Dr: Boom Otto DO Copies to: Boom Otto DO~ Ordering Provider: Boom Otto DO Date of Service: 02/04/25 XR/XR cervical spine w flex/ext: M54.2 - Cervicalgia 7 views of cervical spine with flexion and extension HISTORY: Posterior neck pain with motion. Adequate cervical lordosis. Mild degenerative listhesis. No hypermobility. Spondylosis greatest at the C6-7 level. Multilevel facet degeneration. Bilateral bony neural foraminal narrowing greatest at the C6-7 level. No acute fracture. Unremarkable soft tissues. XR/XR cervical spine w flex/ext IMPRESSION: No hypermobility. Extensive degeneration greatest at the C6-7 level. Impression dictated by: Cr Solorzano M.D. 02/04/2025 8:29 PM Dictation Location: [employer] Transcribed By: [facility] 02/04/252028 Dictated By: Cr Solorzano DO 02/04/252024 Signed By: <Electronically signed by Cr Solorzano DO in OV> 02/04/252028 Vital Signs Vital Reading Result Reference Range Collection Date/Time Height 67 [in_i] December 07, 2024 9:24gnEinndq19.64 kgSeptember 2024 9:11amBody Eqfftocugsb43.9 [degF]97.6-99.0Sept2024 11:22amHeart Rate65 /min 60-100September 2024 12:19pmRespiratory rate18 /arw85-59BuaaamtxvDecember 07, 2024 12:19pmOxygen saturation by Pulse pelsvdyc89 %95-100September 2024 12:19pm BP Naidqhnp415 mm[Hg]100-140September 2024 12:19pmBP Kiohoxmlh29 mm[Hg] 60-100September 2024 12:51tsAxoeuu11.82 kgSept2024 2:42pmBody Qaveocdlxrx22.5 [degF]97.6-99.0September 2024 2:42pmHeart Rate66 /min 60-100Sept2024 2:42pmRespiratory rate16 /juh21-41Pujnakomy 2024 2:42pmOxygen saturation by Pulse hvalwdcp48 %95-100September 2024 2:42pmBP Wfvnwdsc532 mm[Hg]100-140September 2024 2:42pmBP Oxrxamawg93 mm[Hg]60-100September 2024 2:93jzNcsmlo50 [in_i]September 17, 2024 9:29am Waqtya01.82 kgSeptember 2024 2:42pmBody Cwceviphbrq81.6 [degF]97.6-99.0 February 19, 2024 8:05amHeart Rate84 /ttx37-429Zyqcxhhb 21st, 2024 8:05am Respiratory rate20 /eht46-88Tjxbqiso 21st, 2024 8:05amOxygen saturation by Pulse kfxboywz31 %95-100Nov2023 8:05amBP Suaqqzmp871 mm[Hg]100-140 February 19, 2024 8:05amBP Yzfbmjgwj62 mm[Hg]60-100Nov2023 8:05am Klyjmz26 [in_i]January 18, 2025 7:25bpEfbwlt27.00 kgOct2024 7:12am Body Wiiwhivpivi48.2 [degF]97.6-99.0January 18, 2025 7:12amHeart Rate79 /min 60-100Oct2024 7:12amOxygen saturation by Pulse mloeanlc83 %95-100 January 18, 2025 7:12amBP Pkfbjios438 mm[Hg]100-140Oct2024 7:12amBP Eqdzybiuo71 mm[Hg]60-100Oct2024 7:12amBMI (Body Mass Index)28.6 kg/j3BidqtsnJanuary 18, 2025 7:12am Advance Directives Advance Directive Response Recorded Date/ Time Advance Directives No February 12:14pm Insurance Providers Guarantor Anne Marie Caldera Address [address] [place] [id number] Info.Home Phone: Coverage Status Update:2025 Payer Group Member ID Coverage Type Subscriber Relationship to Subscriber Effective Date Expiration Date [employer] Employees Id: [id number] R Artino Id: [id number] [address] [facility] [address] Home Phone: Email: DECLINE 68.2019[facility] [id number] R Artino Id: [id number] [address] [facility] [address] Home Phone: Email: DECLINE 6..2019[employer] [id number] R Artino Id: [id number] [address] [facility] [address] Home Phone: Email: DECLINE 09.05.2019Self Encounters Encounter Location(s) Arrival/Admit Date Discharge/Departure Date Discharge/Departure Disposition Provider(s) Departed [facility] November 19, 2024 12:45pm November 19, 2024 1:15pm Discharged to home care or self care (routine discharge) Chiquis Johnson MD Departed [facility] -[facility]gery [facility] December 07, 2024 9:35am December 07, 2024 2:02pm Discharged to home care or self care (routine discharge) Oj Wright DO Departed Physician/ Provider Office Visit -[facility] December 16, 2024 3:38pm December 16, 2024 4:17pm Discharged to home care or self care (routine discharge) Chiquis Johnson MD Registered Recurring -Cancer [facility] December 172024 11:16am [facility]Dep[facility]ed [facility] December 24, 2024 6:30amDischarged to home care or self care (routine discharge)Terri Boggseparted Physician/Provider Office Visit-[facility] 2024 11:56amOctober 2024 12:26pmDischarged to home care or self care (routine discharge)GEO Galvineparted Physician/Provider [facility] 20[facility] 8:57amOctober 2024 10:13amDischarged to home care or self care (routine discharge)Abisai Montague Physician/Provider Office Visit-[facility] Family [facility] 2024 8:06amOctober 2024 9:09amDischarged to home care or self care (routine discharge)Abisai Bartlett [facility] 2:53pmNovco[facility] 2024 2:54pmDischarged to home care or self care (routine discharge)[facility] February 10, 2025 8:15amNovember 2024 8:16amDischarged to home care or self care (routine discharge)Boom Otto , DORegistered Recurring-Physical Therapy [facility] 2024 5:30pmPeter Rod , Recent Diagnosis Onset Date Admit Date 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, 2024 3:38pm Claustrophobia Unknown December 16, 2024 3:38pm Encounter for coordination of complex care Unkno wn December 16, 2024 3:38pm Large cell lymphoma of multiple sites Unknown December 16, 2024 3:38pm Myalgia, multiple sites Unknown [facility] 2024 3:38pm Thoracolumbar back pain Unknown [facility] 2024 3:38pm Encounter for immunization Unknown Octob er 2024 11:56am Bilateral primary osteoarthritis of knee Unknown January 14, 2025 8:57am Anemia Unknown January 18 8:06am Cervical pain Unknown January 18 8:06am Hematuria Unknown January 18 8:06am Hyperlipidemia Unknown January 18 8:06am Knee pain, bilateral Unknown December 8:06am Large cell lymphoma of multiple sites Unknown January 18, 2025 8:06am Paroxysmal atrial fibrillation Unknown O ctober 2024 8:06am Pleural effusion, right Unknown January 18, 2025 8:06am Vitamin D deficiency Unknown December 8:06am Wellness examination Unknown December 8:06am Assessments Author Boom Otto [facility] 2024 8:13amThe above note written by ___Eric Gunderson____ acting as human recorder, note dictated by Dr. Dean .I performed the above HPI, ROS, and Examination. I formulated and dictated the treatment plan and was present for entire encounter. Boom Otto D.O. Plan of Treatment Author Eric Gunderson [facility] 2024 7:59amShe is here for a wellness exam. After evaluation I did sign her wellness form for her. Discussed cholesterol results with patient today. Total is 187. HDL is 52. LDL is 120. Triglycerides are 77. VLDL is 15. I encouraged her to continue to monitor her intake of carbs and sugars. Stay active. Since chemo she has developed chronic pain. For the last six weeks she has developed pain in her neck. She saw Dr. King who told her that you can develop Fibromyalgia. We discussed Fibromyalgia today, I did explain to her that exercise can help this condition. She was told that cancer patients can get therapeutic massages so she will get one this week. She gets a CT scan in January for Dr. King. After chemo her legs swelled and she attended the lymphedema clinic. She still wears the boots at night. She took a three month treatment for her lymphatic system. Her knees have worsened since chemo. She is taking Tylenol and Celebrex. She saw Dr. Rod last week for evaluation and he told her that she has arthritis. He recommended physical therapy for education to strengthen her legs because they have gotten weaker since chemo. She can stand and work, but going up and down stairs. If she does not have pain medication it is trying for her. He did give her a cortisone injection on Friday (01/14/25). Her knee is better since she saw him on 01/14/25 and was given the injection. She will return to see Dr. Rod as needed. Down the road she may need a knee replacement. He gave her Naproxen which she asked for. She voices that Naproxen works best for her. She will dissolve the Naproxen in hot water and take it like a shot. She rarely uses the Naproxen. She understands the side effects/risks/benefits of the medication. She will not use the Celebrex on the same days she uses the Naproxen. She drinks Kefir to help keep her stomach from getting upset. I did recommend that she do weight training. She was going to start doing this, I did recommend that she ask therapy on body wide training. She needs to do some exercise to push away from the body, exercise that pulls toward the body and an exercise that holds the weight out from her body. She should do 3-4 sets of 10 three days a week.?? Her hemoglobin is 12.9. She continues to follow with Dr. Morejon, last saw him in May (2024). She voices that she will see Dr. Morejon again soon. She voices that when she was on Xarelto she had blood in the urine. After she was taken off the medication the blood resolved. She saw Dr. Lozoya for evaluation and he felt it was related to the Xarelto. Her latest urinalysis from last year did not show any blood in it. She has not had to have anything drained from her lung cavity for eight weeks. She is going to have a scan done soon to see what it shows. She is feeling better in a lot of ways. She would like to have a Vitamin D level checked. I will provide her with an order. She voices that since chemo is done the left side of her neck is very painful. She is not sure if it is caused by working on a computer all day. I would like to order an x-ray of her neck and she agrees. An order is provided. She voices that she is due to have a DEXA scan done. Due to her history if her DEXA scan is abnormal I will refer her to an industrial staff nurse. She will go out of town and not to Dr. Morgan. Author Peter Viola [facility] HospitalAuthoredOctober 2024 6:01amAnne Marie presents with bilateral knee DJD. At this juncture we have discussed the findings and diagnosis as well as personally reviewed appropriate imaging and performed interpretation of related testing and examination with the patient in office today. Prior medical notes from Boom Otto , and history have been reviewed. Today we have discussed degenerative joint disease of the knee and its treatment. Imaging was discussed and explained to the patient. We discussed recommended conservative therapies including physical therapy, anti-inflammatory medications, and weight loss strategies. We also discussed other treatment options including cortisone injections, Visco supplementation injections which are options for treatment. I have laid out the course of knee DJD including the end- stage treatment of total joint arthroplasty. The patient recognizes and understands our options and goals and we will move forward with our treatment. Today we have initiated ongoing conservative treatment. Offered trial of cortisone injections today. Risks and benefit of injection were discussed and verbal consent was obtained. Under sterile technique the patient's bilateral knee was injected via the inferolateral portal with 4 cc of Marcaine and 1 cc of Kenalog, this was tolerated well without any adverse reaction. Band-Aid was applied to the area. I will see them back as needed. The patient has been involved in our cooperative treatment plan and agrees to move forward with treatment at this time. Images and pain etiology were discussed with the patient. Many of the symptoms are coming from arthritis in the knee. Treatment modalities were discussed including conservative treatment in the form of oral anti-inflammatories, corticosteroid injection, hyaluronic injection, or physical therapy. We will pursue conservative management at this time with physical therapy to work on strength,we will switch her NSAID to naproxen and cortisone injections. We performed a 4/1cc Marcaine/Kenalog cortisone injection into the bilateral knee joint under sterile technique. Patient tolerated the injection well without adverse reaction. Prescription for naproxen was sent into patient pharmacy and patient given order for physical therapy. Patient can follow up as needed. Note scribed by CARLIE Fair, reviewed and amended by myself Peter Rod D.O. Author Constance Jones [facility] Hospital[facility]oredOctthe medical center 2024 11:26amPatient presents today for high dose influenza immunization. Patient denies current acute illness, denies any past allergic reaction to previous vaccine(s) or ingredients. Patient denies any contraindication for receiving vaccine. Pre-vaccination form answers reviewed with patient. Current VIS discussed and provided to patient. Counseled patient on possible side effects/reactions to the immunization and use of OTC medications for symptom relief. Administered By: Simin Jones [facility] Author Berta King [facility] HospitalAuttrippredSeptsharif 2024 8:26amConsult 10/01/2023: This is a now 69-year-old lady who had multiple visits for initially cough and dyspnea with 2 courses of antibiotics and steroids in late May/early June and again in mid July 2023. This symptom improved with the patient presented with abdominal pain in the ER in mid August and was found to have a large conglomeration of mesenteric adenopathy. She subsequently had new onset left neck fullness and ultrasound-guided biopsy was nondiagnostic but suggested abnormal CD4:CD8 ratio which would be suggestive of possible T-cell malignancy. No evidence of metastatic cancer on fine-needle aspiration and core biopsy of left supraclavicular lymph node. We reviewed imaging and reports with the patient as well as recent pathology. She was informed that this is highly suspicious for malignancy and given the rapid pace of her symptoms we would like to expedite open biopsy of her left supraclavicular lymph node is soon as possible. I was able to contact Dr. Yu of ENT who agreed to see the patient today and she will have excisional biopsy of the lymph node on 10/03/2023. Following her biopsy, we will coordinate anatomic chest CT and PET/CT for staging. She will also likely require outpatient bone marrow biopsy if this is consistent with a T-cell malignancy. The patient expressed understanding will return for further workup and review of pathology in the next 1 to 2 weeks. High complexity 60-minute [id number] visit and additional 30 minutes for coordination of care for excisional biopsy. 10/23/2023: Pathology report is somewhat vague regarding extent of the large cells and we are still pending markers of high-grade lymphoma such as MYC as well as clarity regarding whether this was arising out of a pre-existing low-grade lymphoma. Pathology had referred the case to another physician with whom I am unfamiliar and I requested to forward pathology to [facility] pathology Dr. Ochoa Youngblood for secondary review. Given increased IPI score, we will proceed with polatuzumab R CHP with staging as noted above. Follow-up with manage for toxicity check and review of thoracolumbar MRI (determine if need for radiation given her back pain), baseline echo, and results of bone marrow aspiration biopsy cycle 1 week 2. High complexity 1 hour visit, additional care complexity G2212 to review imaging, pathology, staging, and chemotherapy consents. 11/12/2023: Tolerated first cycle of polatuzumab, Rituxan, CHP well. Staging bone marrow biopsy did not show involvement therefore consistent with stage III disease. MRI of thoracolumbar spine to determine if radiation benefit given her thoracolumbar pain and proximity to thoracic spine of large duran mass. This will be reviewed at next follow-up visit. For now continue current dosing of polatuzumab, Rituxan, CHP for 6 total cycles with restaging after first 3 cycles 12/04/2023: No significant toxicities of polatuzumab, rituximab, CHP. Will have restaging PET/CT after 3 cycles with echocardiogram due to doxorubicin therapy. 11/21/2023 diagnostic/therapeutic right thoracentesis did not reveal lymphoma within pleural effusion but this has reaccumulated over the last 2 weeks with symptomatic dyspnea and dullness to percussion on exam. Evaluation by CT surgery next week after repeat therapeutic right thoracentesis as noted above. Okay to continue cycle 3 on 12/18/2023 and I will see her after PET/CT and echocardiogram to reevaluate response to therapy. High complexity 45-minute follow-up to address recurrent right pleural effusion and to coordinate evaluation by CT surgery. 12/25/2023: Other than mild neutropenia and potential cardiac toxicities, no other significant toxicities of polatuzumab, rituximab, CHP after 3 cycles. Continue management as noted above with therapeutic right thoracentesis as needed since she declines Pleurx catheter, cardiology evaluation for changes on echocardiogram, and 25% dose reduction of doxorubicin with follow-up echo prior to cycle 5. High complexity 45-minute follow-up with G2212 coordination of care for changing chemo orders and coordinating cardiology follow-up, thoracentesis. 01/07/24: Add-on visit for new drug rash and to discuss fluid buildup in the lungs. Rash is mild and has improved so far with [id number] Benadryl cream. We discussed other options for treatment if necessary as well. She is scheduled for thoracentesis this afternoon and will continue her treatments as planned. We will keep her current follow-up with Dr. King as scheduled. 01/15/2024: Tolerating chemotherapy well--prior rash improved with topical benadryl. Leukopenia improved with growth factor support and prior doxorubicin dose reduction. No other side effects other than rash and dyspnea due to recurrent pleural effusion. Continue current dosing of polatuzumab, Rituxan, CHP for cycle 5 on 01/[address] cycle 5 week 2 with CBC, CMP, and LDH. 02/05/2024: No new toxicities with mild stable anemia and no cytopenias. Will continue last cycle of polatuzumab, rituximab, CHP on 02/19/2024 at same dosing (prior 25% dose reduction of doxorubicin). Plan management of chylothorax as noted above. End of therapy PET/CT, echocardiogram, and follow-up visit in early February. Further surveillance will be based on findings of end of therapy PET. 03/03/2024: Stable mild anemia no cytopenias. Otherwise normal renal and hepatic function. End of therapy PET/CT images and reports reviewed showing no evidence of residual lymphoma consistent with complete response. 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 We will continue to follow for surveillance exams every 3 months. Continue port flushes every 6 weeks and maintain port at least for the first 6 months. Next scheduled follow-up with CBC, CMP, and LDH will be in 3 months or sooner if new issues arise. I will communicate with Dr. Andrews by email regarding the status of her thoracic duct ligation. High complexity 45-minute follow-up for review of symptoms, labs, imaging, and coordination of care with interventional radiology. 06/09/2024: Anemia now resolved, normal electrolytes, albumin is now normal range 3.9. Reviewed second opinion with [facility] interventional radiology to continue conservative therapy with weekly thoracentesis and if decreasing volumes decrease frequency to every 2 weeks thoracentesis for likely thoracic duct occlusion/rupture. No evidence of recurrence by exam and next restaging CT chest abdomen pelvis with CBC, CMP, and LDH will be in 3 months or sooner if new issues arise. -- She is overdue for annual mammogram and noted some fullness on right upper outer quadrant of breast self-exam that is fibrocystic by my exam but we will contact her with results. High complexity 45-minute follow-up to review [facility] IR second opinion and address diagnostic mammogram as well as exam and labs for his recent history of diffuse large B-cell lymphoma. 09/17/2024: Patient now has no evidence of recurrence by restaging CT chest abdomen pelvis from 09/09/2024 reviewed with her today. Decreasing frequency of right therapeutic thoracentesis to now every 3 weeks with most recent 08/27/2024 only removing 250 mL of straw-colored fluid. CBC is now normal with borderline low white blood cell count but no neutropenia. Normal renal and hepatic function with improving total protein and albumin since end of chemotherapy. She will be due for next follow-up exam with CBC, CMP, and LDH in 3 months. We will defer follow-up imaging to 6 months unless new symptoms arise concerning for recurrence. 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 Patient is in agreement with this plan over this moderate complexity 35- minute follow-up for review of exam, labs, and restaging imaging, now 6 months after completion of chemotherapy for diffuse large B-cell lymphoma. 12/16/2024: Mild persistent fatigue--no recent infections, normal CBC and chemistry profile--sent labs today for B12, folate, and iron studies showing normal studies. Mild myalgias and arthralgias over the past 3 months--sendinig for massage therapy. No adenopahty on exam--next f/u with CBC, CMP, and LDH with restaging CT Chest/Abdomen/Pelvis in 3 months with followup oncology visit. No indication for futher thoracentesis in absence of symptoms. Moderate complextiy 35 minute folllowup. 12/04/2023: Recurrent right pleural effusion after she underwent diagnostic/therapeutic right thoracentesis on 11/21/2023. Unclear as to why she has recurrent effusion but should be worked up for thoracic duct injury or other potential etiologies. Prior cytology did not show evidence of lymphoma within the pleural effusion. Order for repeat therapeutic right thoracentesis and evaluation by Dr. Thomas Garcia of CT surgery who was contacted today to coordinate evaluation on Friday and subsequent or date of Friday for Pleurx catheter or pleurodesis procedure. Continue current chemotherapy until restaging by PET/CT as noted above. 12/25/2023: Patient decided against placement of Pleurx catheter or pleurodesis. She is now scheduled for weekly thoracentesis as needed and has recurrent large effusion by exam today. Scheduled for thoracentesis tomorrow. As per HPI her follow-up PET/CT shows complete response with no residual FDG uptake of her lymph nodes and significant regression of prior sites of duran involvement. Echocardiogram remarkable for mild decline in EF from baseline (65 to 70% in September, now 55 to 60%) and new bilateral atrial enlargement and mild pulmonary hypertension. I am referring her back to cardiology for medical management although her pulmonary hypertension may be related to her large pleural effusion. In addition I am decreasing her dose of doxorubicin by 25% and will reassess echocardiogram after next cycle. Follow-up with me in 3 weeks to review symptoms, labs, and imaging. High complexity 45-minute follow-up with G2212 coordination of care for changing chemo orders and coordinating cardiology follow-up, thoracentesis. 01/07/24: She is scheduled for therapeutic thoracentesis this afternoon on the right side, however would like evaluated to see if there is any fluid on the left side as well. Radiology is in agreement with checking, and patient understands she will need additional appointment if thoracentesis is needed on the left. She felt great after her procedure last week and has not had any complications from these. 01/15/2024: Weekly thoracentesis of about 2.1L opaque fluid each week--not improved despite regression of prior FDG uptake on cycle 3 PET/CT. I discussed her case with Dr. Gomez who reviewed her history and imaging--he suggested workup for chylothorax with triglycerides and chylomicrons on pleural fluid with thoracentesis tomorrow. We are also resending cell count, culture, protein, glucose, amylase, and LDH on pleural fluid. He agrees to see her in consultation next week. If this is due to chylothorax, she would need to remain NPO and begin TPN. High complexity 45 minute followup of chemotoxicities and workup of pleural effusion. G2212 coordination of pleural fluid testing and discussion of case with Dr. Gomez. 02/05/2024: Testing of pleural fluid with triglycerides >1000 consistent with chylothorax. She was evaluated by Dr. Gomez to review pleural fluid results showing elevated triglycerides and chylomicrons consistent with recurrent chylothorax. She was offered options of complete bowel rest with TPN, placement of pleurx catheter, or continue weekly palliative thoracentesis--she wishes to continue weekly paracentesis only. She will complete last cycle of chemotherapy on 02/19/2024--I reviewed her case with CT Surgeon Dr. Mackey at who recommended referral to IR (Dr. Archie Andrews) for thoracic duct ligation. We will set up the consult in late Jan/early Feb. He was contacted by email to coordinate this appointment. High complexity 45 minute followup on Adryan-R-CHP chemotherapy, coordinate palliative thoracentesis (discussed options for management of chylothorax), and coordination of care (G2212 30 minutes) with Dr. Andrews at IR. 03/03/2024: Patient has continued weekly thoracentesis for management of large right pleural effusion secondary to chylothorax. She was offered an earlier appointment with interventional radiology, however the patient wished to defer this until she completed chemotherapy. She has now completed chemotherapy and is CRu by PET/CT reviewed today. Will have thoracentesis on 03/05/[address] Andrews 03/09/2024 for thoracic duct ligation. She had multiple questions which I deferred to Dr. Andrews at [facility] regarding the procedure. 06/09/2024: We reviewed her recent consultation with second opinion [facility] interventional radiology. She has continued weekly thoracentesis for chylothorax but notes that she is less symptomatic and volumes with each thoracentesis of going down (most recently 350 mL). Recommendation from [facility] IR to continue weekly thoracentesis for 4 weeks, consider extending to every 2 weeks if decreasing volumes and no symptoms. If worsening symptoms or increasing volumes she will proceed with MRI lymphangiogram. 09/17/2024, 12/16/2024: The patient has not required right therapeutic thoracentesis since August due to decreasing volumes (08/2024 yielded 200 mL of straw-colored fluid). She cancelled further follow-up with her second opinion decorator consultant at [facility] interventional radiology. She may resume thoracentesisr if new issues arise. With initiation of therapy she reported increasing thoracolumbar back pain. Retroperitoneal mass abuts the lower thoracic vertebrae and given her increased pain we are evaluating to see if she has involvement of spinal nerve roots or vertebral bodies on thoracolumbar MRI which will be reviewed at next visit. 12/04/2023: No evolvement of thoracic vertebrae or leptomeninges on MRI. Continue current systemic therapy and no indication at this time for intrathecal therapy. 03/03/2024, 06/10/2024: No current complaint of thoracic pain other than site of thoracentesis which is unchanged. Will reevaluate at 3-month follow-up since she has decided against interventional approach for chylothorax. 12/16/2024: Massage therapy referral as noted above and review symptoms at 3 month followup. Patient noted to have claustrophobia with attempting MRI and underwent prescribed protocol with rescheduling procedure without difficulty. She also has had emotional lability with steroids and will be managed with palliative medicine for the symptoms. Will require benzodiazepine for any recurrent MRIs in the future. Polatuzumab vedotin 1.8 mg/kg Administer acetaminophen and antihistamine prior to IV infusion Treat on day 1 of 21-d cycle with chemotherapy for 6 cycles R-CHP Cyclophosphamide 750 mg/m2??on day 1; doxorubicin 50 mg/m2??on day 1; prednisone 100 mg orally on days 1-5; rituximab 375 mg/m2??on day 1 10/23/2023: Given the presence of large cells and aggressive nature, calculated IPI 3 due to advanced stage (at least stage III)--I recommended polatuzumab, rituximab, cyclophosphamide, doxorubicin, and prednisone therapy. LDH was ordered with baseline labs, she will need baseline echocardiogram, thoracolumbar MRI to evaluate her for her spinal mass, and bone marrow aspiration and biopsy which we are arranging with interventional radiology. She also will need infusion port placement and will be referred to general surgery for this. She reviewed and signed informed consent for Adryan-R-CAP. We will likely commence therapy in the next 1 to 2 weeks as soon as she completes her staging. Follow-up with me to review staging studies and toxicity on chemotherapy. I will give her allopurinol 300 mg daily first 2 weeks of therapy to prevent tumor lysis syndrome. 11/12/2023: Patient received her first cycle of polatuzumab with R CHP on 11/06/2023 with no significant toxicities. Pending MRI of the thoracic spine to determine if there would be any benefit to radiation given proximity to thoracic spine and pain symptoms. Will review these results at the time of her next follow-up. Plan 6 total cycles. 12/04/2023: 2 cycles of polatuzumab with R CHP tolerated well except reaccumulation of right pleural effusion after prior thoracentesis. MRI of thoracic and lumbar spine shows no spinal or leptomeningeal involvement of tumor. Prior back pain improved. Restaging PET/CT after 3 cycles. Continue current therapy. 12/25/2023: EF 55 to 60% with new pulmonary hypertension. Dose reducing doxorubicin by 25% and continuing all other medications at full dose. PET/CT with CRU to initial 3 cycles. 01/15/2024: Continue current chemotherapy dosing for cycle 5 on 01/29/2024 with growth factor support. 02/05/2024: Here for cycle 5 week 2 [id number]-CNR. prior 25% dose reduction of doxorubicin maintained. She will proceed with last cycle 02/19/2024 at current dose. Next f/u Pet scan, echo and labs February with follow up that week after with me to coordinate further followup based on response and plan for chylothorax management by IR at [facility]. 03/03/2024: She has now completed 6 cycles of Kbyy-[id number]-CWP with last dose 02/19/2024. PET/CT 03/01/2024 CRu. No further chemotherapy and continue surveillance every 3 months. Evaluation with IR for management of chylothorax. 06/09/2024: Patient had second opinion at [facility] interventional radiology 05/31/2024. She has continued weekly thoracentesis since November 2023 but volumes have been improving and she is less symptomatic. Their recommendation is to continue conservative management with 1 more month of weekly thoracentesis, monitoring volumes. If volumes continue to decrease we may space out thoracentesis to every 2 weeks. If symptoms worsen or thoracentesis volume increases, recommendation for MR lymphangiogram. Continue low-fat diet and lymphedema therapy. 09/17/2024: Surveillance CT chest abdomen pelvis showing no recurrence of lymphoma. Lymphedema improving. No nutritional abnormalities. Sending for massage therapy for symptoms. Future Tests Future scheduled test information is unavailable Pending Tests Test Name Ordered Date Scheduled Date CT abdomen pelvis w con December 16, 2024 2:5 [address] chest w con December 16, 2024 2:59pm 3 Mo [facility] Comprehensive Metabolic Panel December 16 2:59pm [address] soft tissue neck w con December 16, 2024 2 :59pm 3 Months Future Visits Future appointment information is unavailable Future Procedures Procedure Name Ordered Date Scheduled Date Histology (Oncology) October 23, 2023 3:15pm 1 Da ys AST/ALT<OR=2.5XULN October 24, 2023 2:12pm November 05, 2023 11:00pm AST/ALT<OR=2.5XULN November 23, 2023 7:54am Nove mber 2023 12:00am AST/ALT<OR=2.5XULN November 23, 2023 7:54am Augu st 2023 11:00pm AST/ALT<OR=2.5XULN November 23, 2023 7:54am Sept ember 2023 11:00pm AST/ALT<OR=2.5XULN November 23, 2023 7:54am Octo zahra 2023 11:00pm AST/ALT<OR=2.5XULN November 23, 2023 7:54am Octo zahra 2023 11:00pm CR-CL>=30 ML/MIN November 23, 2023 7:54am Novemb er 2023 12:00am CR-CL>=30 ML/MIN October 24, 2023 2:12pm November 042023 11:00pm CR-CL>=30 ML/MIN November 23, 2023 7:54am November 26, 2023 11:00pm CR-CL>=30 ML/MIN November 23, 2023 7:54am Septem zahra 2023 11:00pm CR-CL>=30 ML/MIN November 23, 2023 7:54am Octobe r 2023 11:00pm CR-CL>=30 ML/MIN November 23, 2023 7:54am Octobe r 2023 11:00pm Cumulative dose of DOXOrubic in less than 450mg/m2 October 24, 2023 2:12pm November 05, 2023 11:00pm Cumulative dose of DOXOrubic in less than 450mg/m2 November 23, 2023 7:54am November 26, 2023 11:00pm Cumulative dose of DOXOrubic in less than 450mg/m2 November 23, 2023 7:54am January 07, 2024 11:00pm Cumulative dose of DOXOrubic in less than 450mg/m2 November 23, 2023 7:54am January 28, 2024 11:00pm Cumulative dose of DOXOrubic in less than 450mg/m2 November 23, 2023 7:54am February 19, 2024 12:00am Cumulative dose of DOXOrubic in less than 450mg/m2 November 23, 2023 7:54am December 17, 2023 11:00pm ANC>=1000 November 23, 2023 7:54am November 26, 2023 11:00pm ANC>=1000 November 23, 2023 7:54am January 07, 2024 11:00pm ANC>=1000 November 23, 2023 7:54am January 28, 2024 11:00pm ANC>=1000 November 23, 2023 7:54am 2023 12:00am ANC>=1000 October 24, 2023 2:12pm October 11:00pm ANC>=1000 November 23, 2023 7:54am 2023 11:00pm Hold & Call Ordering Physici an if Pt Does Not Meet Criteria November 23, 2023 7:54am November 26, 2023 11:00pm Hold & Call Ordering Physici an if Pt Does Not Meet Criteria November 23, 2023 7:54am December 17, 2023 11:00pm Hold & Call Ordering Physici an if Pt Does Not Meet Criteria November 23, 2023 7:54am January 07, 2024 11:00pm Hold & Call Ordering Physici an if Pt Does Not Meet Criteria November 23, 2023 7:54am January 28, 2024 11:00p m Hold & Call Ordering Physici an if Pt Does Not Meet Criteria November 23, 2023 7:54am February 19, 2024 12:00am Hold & Call Ordering Physici an if Pt Does Not Meet Criteria October 24, 2023 2:12pm November 05, 2023 11:00pm Ejection Fraction>=50% October 24, 2023 2:12pm 2023 11:00pm Ejection Fraction>=50% November 23, 2023 7:54am November 26, 2023 11:00pm Ejection Fraction>=50% November 23, 2023 7:54am December 17, 2023 11:00pm Ejection Fraction>=50% November 23, 2023 7:54am January 07, 2024 11:00pm Ejection Fraction>=50% November 23, 2023 7:54am January 28, 2024 11:00pm Ejection Fraction>=50% November 23, 2023 7:54am February 19, 2024 12:00am Apply O2 via Nasal Cannula 4 L to Maintain SpO2 of >=90% November 23, 2023 7:54am December 17, 2023 11:00pm Apply O2 via Nasal Cannula 4 L to Maintain SpO2 of >=90% November 23, 2023 7:54am January 07, 2024 11:00pm Apply O2 via Nasal Cannula 4 L to Maintain SpO2 of >=90% November 23, 2023 7:54am February 19, 2024 12:00am Apply O2 via Nasal Cannula 4 L to Maintain SpO2 of >=90% October 24, 2023 2:12pm November 05, 2023 11:00pm Apply O2 via Nasal Cannula 4 L to Maintain SpO2 of >=90% November 23, 2023 7:54am November 26, 2023 11:00pm Apply O2 via Nasal Cannula 4 L to Maintain SpO2 of >=90% November 23, 2023 7:54am January 28, 2024 11:00pm Orders Panel Function Communication Order November 06, 2023 2:49pm November 06, 2023 2:49pm Orders Panel Function Communication Order November 27, 2023 8:05am November 27, 2023 8:05am Orders Panel Function Communication Order December 18, 2023 8:05am December 18, 2023 8:05a m Orders Panel Function Communication Order December 31, 2023 1:02pm December 31, 2023 1:02pm Orders Panel Function Communication Order January 29, 2024 7:52am January 29, 2024 7:52am Orders Panel Function Communication Order February 13, 2024 3:54pm February 13, 2024 3:54pm Orders Panel Function Communication Order October 31, 2023 1:40pm October 31, 2023 1:40pm Orders Panel Function Communication Order October 31, 2023 1:41pm October 31, 2023 1:41pm Orders Panel Function Communication Order November 03, 2023 1:49pm November 03, 2023 1:49pm Orders Panel Function Communication Order November 06, 2023 9:37am November 06, 2023 9:37am Orders Panel Function Communication Order November 06, 2023 2:50pm November 06, 2023 2:50pm Orders Panel Function Communication Order November 26, 2023 2:22pm November 26, 2023 2:22pm Orders Panel Function Communication Order November 27, 2023 8:06am November 27, 2023 8:06am Orders Panel Function Communication Order December 16, 2023 3:01pm December 16, 2023 3:01p m Platelets >=75,000 November 23, 2023 7:54am Augu st 2023 11:00pm Platelets >=75,000 November 23, 2023 7:54am Nove mber 2023 12:00am Platelets >=75,000 October 24, 2023 2:12pm November 05, 2023 11:00pm Platelets >=75,000 November 23, 2023 7:54am Sept ember 2023 11:00pm Platelets >=75,000 November 23, 2023 7:54am Octo zahra 2023 11:00pm Platelets >=75,000 November 23, 2023 7:54am Octo zahra 2023 11:00pm Proceed with Treatment November 06, 2023 9:36am A ugust 2023 11:00pm TOTAL BILIRUBIN<=1.5XULN November 23, 2023 7:54a m November 26, 2023 11:00pm TOTAL BILIRUBIN<=1.5XULN November 23, 2023 7:54a m February 19, 2024 12:00am TOTAL BILIRUBIN<=1.5XULN October 24, 2023 2:12pm November 05, 2023 11:00pm TOTAL BILIRUBIN<=1.5XULN November 23, 2023 7:54a m December 17, 2023 11:00pm TOTAL BILIRUBIN<=1.5XULN November 23, 2023 7:54a m January 07, 2024 11:00pm TOTAL BILIRUBIN<=1.5XULN November 23, 2023 7:54a m January 28, 2024 11:00pm Post Anesthesia Tracer order December 07, 2024 12:03pm December 07, 2024 12:15pm Discharge Order December 07, 2024 11:26am Sept ember 2024 11:26am Complete Blood Count Auto Diff December 16, 2 025 2:59pm 3 Months LDH Lactate Dehydrogenase December 16, 2024 2 :59pm 3 Months Future Medications Future medication information is unavailable Patient Instructions Instruction Admit Date Know your Meds December 07, 2024 9:35am Goals Acute Goals Author Authored Date Maintain/increase activity l evels * Understands factors that may lead to activity intolerance * Helps perform self care activities * Maintains maximum range of motion * Increase/regain muscle mass and strength * Maintains VS WNL during activity * Maintain intact skin integrity Updated: 05/13/2022ay[facility] 2023 2:21pmExperience reduced anxiety * Identifies current stressors * Develops effective coping behaviors * Uses support services as appropriateOhio[facility] 2024 1:09pmRemain free of complications [facility] 2024 1:09pmUnderstand preop/postop care/sensations * Verbalizes understanding of surgical procedure * Verbalizes understanding of sensations following surgery * Verbalizes understanding of post-op treatment planOhioHealth [facility] Centereptco[facility] 2024 1:09pmReport pain at tolerable level * Uses pain scale appropriately * Identify options for pain control - Analgesics - Narcotics - Non-medication measuresOhioHealth Nelsonville Health Centereptco[facility] 2024 1:09pmAbsence of imbalanced fluid volume s/s [facility] 2024 1:09pmAbsence of physical injury [facility] 2024 1:09pmAbsence of surgical site infection [facility] 2024 1:09pm
--- OUTSIDE RECORDS SUMMARY | 2025-02-11 15:40 | XMS_ITS | Continuity of Care Document ---
Author Organization [facility] Address [address] [place] [address] Phone Care Team Providers Care Loan Review Manager Name Role Phone Boom Parker DO Primary Care Provider Constance Jones [facility] Attending Provider Naima shea Care Teams Patient Care Team Team Status: Active Member Role/Relationship Status Dates Boom Parker DO Primary Care Provider Active Visit Care Team Team Status: Inactive Member Role/Relationship Status Dates Boom Parker DO Primary Care Provider Active S tart: January 13, 2025 End: January 13, 2025Jacbrandee Jones RPttending ProviderActiveStart: January 13, 2025 End: January 13, 2025 Chief Complaint and Reason for Visit Chief Complaint Admit Date flu January 13, 2025 1 1:56am Reason for Visit Admit Date Encounter for immunization January 13, 2025 11:56am Reason for Referral Type Reason(s) Provider Provider Contact Information [facility] Address Start Date you may use alternating doses of ibuprofen (Motrin) 600 mg followed 3 hours later by 2 extra strength Tylenol's, followed 3 hours later by ibuprofen 600 mg. You may continue this repeating schedule for pain management.Odilia Freeman Phone: [phone] [address] [address] Allergies, Adverse Reactions, Alerts Allergen Type Severity [...] Legal Sex Female (finding) Sex [facility]ber 1954 Family History Relationship Condition Age [...] mg tablet Discontinued 0 PO.with food or rgyy6621Karti 14th, 2024 11:00pmAugust 11, 2023 1:05pmtake 3 tablets a day x3 days, 2 tabs a day x3 days and then 1 tab a day x3 days orally WITH FOOD ORMILK;Amoxicillin-Pot Clavulanate 875-125 mg thiumjFnuwrcydxuds8VPZSM Twice swdag80792Spxmx 14th, 2024 11:00pmMa2023 1:06pmwith food Terconazole 0.8 % mwxihJnovcdeeqsfa0WUXAEOMOJZETDQWCTErycb at vfwynve3187Ivkih 14th, 2024 11:00pmMa2023 1:41pmCelecoxib 200 mg capsuleDiscontinued0 .ROUTE.JGENJGT901Hrta 2023 7:34amJune 2023 7:01amTAKE 1 CAPSULE BY MOUTH ONCE DAILY WITH FOODAllopurinol 300 mg melfnvLbagaraguube894JYGRBfgss132 November 02, 2023 11:00pmAugust 2023 2:05pmPrednisone 50 mg tablet Qaartrdljeef179CMHI.YKRYXEE357Whlaow2023 12:49pmAugust 2023 12:52pm 100 mg orally take days 1-5 of each chemo cycle; plan for six cyclesPrednisone 50 mg ylrtxnClgxuutkpuil401NUPP.MGQMOXY436Kwkjky 5th, 2024 12:52pmAugust 2023 12:70jb678 mg orally take days 1-5 of each chemo cycle; plan for six cycles Prednisone 50 mg evlmnpGosfgocvsmad390DPDA.WBGYDFM989Dkiqcg2023 11:00pm March 12, 2024 1:19ll976 mg orally take days 1-5 of each chemo cycles plan for six cycles;Acyclovir 400 mg ryiyftEbcywgdufxji230NPVRRztrg tafgl676Waqmsh2023 11:00pmAugust 2023 2:07pmSulfamethoxazole-Trimethoprim (Bactrim Ds) 800-160 mg acuhdvSafthgsowpjo2LVGnmzn309Tfrayu 7th, 2024 11:00pmAugust 2023 2:07pmTAKE ONE TABLET ON MONDAYS, WEDNESDAYS, AND FRIDAYS (3 TIMES PER WEEK)Sulfamethoxazole-Trimethoprim (Bactrim Ds) 800-160 mg eyxnjqPecgjciccsmk0HI Sjdup927Krxcvr2023 2:05pmJune 2024 9:33amOn Hold: hold for Dr King TAKE ONE TABLET ON MONDAYS, WEDNESDAYS, AND FRIDAYS (3 TIMES PER WEEK)Acyclovir 400 mg lmemuxLvcolawgsfho533LAMHRvxmd wbbnv1607Evhlde2023 2:06pmDecember 2023 4:11pmHydrocodone-Acetaminophen 5-325 mg rmiltpBntqmtxmohjc2AMXXGTxfgz 12 hours as needed for giem7735Phbcypsw 2024March 2024 2:29pmPain in both knees Pain in right knee Pain in left kneeSulfamethoxazole-Trimethoprim (Bactrim Ds) 800-160 mg tablet Ahkzlwjjbqju8BLZNIGaganSBUNUSY259Oynftesk 2024 2:58pmSeptember 2024 9:20am1 tab orally by mouth Gmcgoi-Mxrc-Nvfold;Nystatin 100,000 unit/mL wcghigxvfvJoyczskkttuy4TZHU5-1 TIMES PER KLT9933Zwfe 2024 11:00pmSeptember 2024 9:20amswish and swallowLosartan 50 mg TuqqorCcbvlelfskqu14RUANEyapa dailyMay 2017 11:00pmJanuary 2023 7:29amMetoprolol Succinate 50 mg Tablet Extended Release 24 DxOknnxynheeuq57XEXWJxmqiIkj 2017 11:00pm January 05, 2024 1:10pm25 mg dailyHydralazine 25 mg JsbhczIdhfyrlojimo26VRUQ Twice dailyMa2017 11:00pmJuly 2023 12:57pmAmlodipine (Norvasc) 5 mg UfiekzXmtnjd4GPDRVhdioRdh 2017 11:00pmUnknownFlecainide 50 mg TabletActive 50MGPOTwice dailyMa2017 11:00pmUnknownMetoprolol Succinate 50 mg tablet extended release 24 vqDaoezwjadzff61QSIYSotbmEfueflc 2023 1:05pmMarch 2024 2:31pm25 mg dailyCelecoxib 200 mg eepcwsoFufwtjhphtaz301CFDEIjvri as needed for PainJanuary 2023 12:00amJune 2023 7:35amNaproxen 500 mg tablet Blxzdssakegg145QQFWPhcng daily as needed for PainJanuary 2023 12:00amJun2023 7:01amLosartan 50 mg xkdubpRzwpcl95YICCBslcm dailyJuly 2023 11:00pmUnknownAcetaminophen (Tylenol Arthritis Pain) 650 mg tablet extended otlbbicWwuwld631GUIHFcabl 12 hours as needed for painJune 2023 11:00pm UnknownPrednisone 50 mg GuvbsvFztkmyvgmhir044OKBQLwbua36Rmdu 2023 11:00pm November 03, 2023 12:51pmPrednisone 50 mg DjumebSofhnrepqgsr211UTVRMfomg36Yqdbmu 2023 11:00pmOct2023 1:08pmAcetaminophen-Codeine 300-30 mg tablet Xwememmgmpcc5EKUMATMTPZ 4-6 HOURS as needed for cgxk7641Kxifgw 5th, 2024 11:00pm January 05, 2024 1:04pmLarge cell lymphoma of multiple sites Other specified types of non-Hodgkin lymphoma, lymph nodes of multiple sites Ibuprofen 600 mg berhkwKlfuljqwrxua890HSCWVUJLA 4-6 HOURS as needed for upra7309 December 06, 2024 11:00pmOct2024 7:42amdo not exceed 4 doses in a 24 hour periodOndansetron 8 mg tablet,etkrvjvzkktrkyOvvwztdoxvbc4NHDNH6E as needed for Kbtdem312Stjr 2023 11:00pm[facility] 2024 2:29pmMetoprolol Succinate 25 mg tablet extended release 24 nbOxbcgshbleth52FXTCQgskgDelvari 6th, 2024 11:00pmMarch 2024 2:29pmAcetaminophen (Tylenol 8 Hour) 650 mg tablet extended jkwpenfQbzembvgcxwv464IPSHAamvi 12 hoursJune 2024 11:00pm December 16, 2024 2:47pmCelecoxib (Celebrex) 200 mg klpkykhBylcuy615YXARHklec 901October 2024 7:42amUnknownNaproxen 500 mg niedbcQkkmua423MGBEBwyxn mqmve44129Ejidxws 16th, 2025 11:00pmUnknownLosartan 50 mg noqxngUwpzuwxijlxf06JR POTwice dailyMay 2023 11:00pmJune 2023 7:01amCyclobenzaprine 10 mg fbvllpUzjzft46AEZLAmzbc at bedtime as needed for muscle painMay 2023 11:00pmUnknownCholecalciferol (Vitamin D3) 50 mcg (2,000 unit) cqxebipSnheva0108 UNITPO3 Times a weekMay 2023 11:00pm50 mcg orally 5 days per week;Unknown Prednisone 20 mg lribhpLomyfovcuchy3SY.PSHVJEV54050Gov 2023 11:00pmJune 2023 7:01am3 tabs a day x3 days then take 2 tabs a day x3 days then take 1 tab a day x3 then take 1/2 tablet aday x4 days with food or milk orally; Doxycycline Hyclate 100 mg khnjrxkLokyhldpjbts701VROPYkpiz wrpse18055Jvw 12th, 2024 11:00pmJune 2023 7:10amHydralazine 50 mg udlvepEgqauihfvlfn64ZIFO Three times dailyJuly 2023 11:00pmJuly 2023 11:51amHydralazine 50 mg kbkjniRuridw60HVNJFunzn dailyJuly 2023 11:51amUnknownClotrimazole 10 mg kddnvqJuxnvxamwiho20ZKQWNERU MEMThree times rufhr201Uxwrvpdy 2023 12:00am March 03, 2024 4:11pmCandidiasis of mouth Candidal stomatitisClotrimazole 10 mg yttllfRldzrcymjxbe26GKMCVMKV MEMThree times gxgtc231Rxxsoedj 2023 4:10pmJune 2024 9:33amCandidiasis of mouth Candidal stomatitisAcyclovir 400 mg kwmhlfUaoweimfkwdf510SSHLHrqay nyykh9331 March 03, 2024 4:11pmJune 2024 9:32amSulfamethoxazole-Trimethoprim (Bactrim Ds) 800-160 mg ylnvyyMvftrarcgtsf9JEYWT.PEAOENJ075Eivmpwun 2023 12:00amFebruary 2024 2:58pm1 tab orally by mouth Oeuqba-Lflq-Rflbhp; Metoprolol Succinate 25 mg tablet extended release 24 wiNubifm48DGABWlvelVrldy 2024 11:00pmUnknownCelecoxib (Celebrex) 200 mg ucofpauIsnxddrpouvz536NHRS Gchcr910Pjhlj 2024 11:00pmApril 2024 4:08pmCelecoxib (Celebrex) 200 mg aqfovdaVzfsmutbavuq693VZLQUzrin490Spssp 2024 4:08pmOctober 2024 8:58am Immunizations Immunization Event Date Not Given Reason Dose Number [employer] Lot Number Reason(s) Given Vaccine Information Statement (VIS) Detail Administration Location COVID-19 mRNA-1273 (Moderna) April 20, 2020 [id number] CtrCOVID-19 mRNA-1273 (Moderna)June 01, 2020 [id number] [facility] CtrQuadrivalent Influenza (mdv)December 30, 2019Fluzone TIV High-Dose 65YR+April 22, 2017Fluzone TIV High-Dose 65YR+ January 01, 2022Fluzone TIV High-Dose 65YR+January 22, 2024UT8409CAFCCC Fluzone TIV High-Dose 65YR+January 13, 20256576WX7278RGQQOPqtdycwxle, unspecified formulationJanuary 2017influenza, unspecified formulationOctober 2019 influenza, unspecified formulationOctober 2021Quadrivalent InfluenzaOctober 2022 Medical Equipment Device Date Implanted Date Explanted Device Deta ils Vascular port/catheter November 04, 2023 December 07, 2024 МАРИЯ: [id number] Issuing Agency: [facility] Device Id: [id number] Expiration Date: 2024-12-28 Lot Number: [id number] Advance Directives Advance Directive Response Recorded Date/ Time Advance Directives No February 12:14pm Insurance Providers Guarantor Anne Marie Caldera Address [address] [place] [id number] Info.Home Phone: Coverage Status Update:2025 Payer Group Member ID Coverage Type Subscriber Relationship to Subscriber Effective Date Expiration Date [facility] Employees Id: [id number] R Artino Id: [id number] [address] [place] [phone] Home Phone: Email: DECLINE 09.06.2019[facility] Employees [id number] R Artino Id: [id number] [facility] [address] Home Phone: Email: DECLINE 09.06.2019SelfMedicare [id number] R Artino Id: [id number] [facility] [address] Home Phone: Email: DECLINE 6Self Encounters Encounter Location(s) Arrival/Admit Date Discharge/Departure Date Discharge/Departure Disposition Provider(s) Departed Physician/ Provider Office Visit -[facility] January 13, 2025 11:56am January 13, 2025 12:26pm Discharged to home care or self care (routine discharge) Constance Jones RPH Recent Diagnosis Onset Date Admit Date Encounter for immunization Unknown Octob er 2024 11:56am Assessments Diagnosis Onset Date Resolution Status Admit Date Encounter for immunization acuteOctober 2024 11:56am Plan of Treatment Author [facility] 20[facility] 11:26amPatient presents today for high dose [...] for symptom relief. Administered By: Simin Jones RPh Future Tests Future scheduled test information is unavailable Pending Tests Test Name Ordered Date Scheduled Date CT abdomen pelvis w con December 16, 2024 2:5 [address] chest w con December 16, 2024 2:59pm 3 Mo nt Comprehensive Metabolic Panel December 16 2:59pm 3 [...] 2024 11:00pm ANC>=1000 November 23, 2023 7:54am Novem2023 12:00am ANC>=1000 October 24, 2023 2:12pm October [...] Discharge Order December 07, 2024 11:26am Sept emb2024 11:26am Complete Blood Count Auto Diff December 16, 2 025 2:59pm 3 Months LDH Lactate Dehydrogenase December 16, 2024 2 :59pm 3 Months Future Medications Future medication information is unavailable Patient Instructions Instruction Admit Date Know your Meds December 07, 2024 9:35am
--- OUTSIDE RECORDS SUMMARY | 2025-02-22 15:54 | XMS_ITS | Clinical Summary ---
Author Organization [facility] Address [address] [place] [id number] Care Team Providers Care Youth Pastor Name Role Phone Unavailable Primary Care Provider Unavailabl e Allergies Active AllergyReactionsCriticalityNoted VdymHjavadnpPknqjjfouqXjbamar74/08/2024 HydrochlorothiazideOther: See Comments,Kmovtjo4206/06/2023 Other Reaction(s): unknown, hair loss AyyusxjaqoJonyy03/03/2024 Other Reaction(s): unknown RivaroxabanCough,Other: See Comments,Dlzfzwu0206/06/2023 Other Reaction(s): Unknown Medications MedicationSigDispense QuantityRefillsLast FilledStart DateEnd DateStatus amLODIPine (NORVASC) 5 mg tablet Take 5 mg by mouth once daily.Active flecainide (TAMBOCOR) 50 mg tablet Take 50 mg by mouth two times a day.08/26/2017Active cyclobenzaprine (FLEXERIL) 10 mg tablet Take 10 mg by mouth at bedtime as needed for muscle spasm or pain.08/11/2023 Active Cholecalciferol, Vitamin D3, 50 mcg (2,000 unit) cap Take 3,000 Units by mouth one time a week.08/11/2023ctive acetaminophen 650 mg CR tablet Take 650 mg by mouth three times a day as needed.09/25/2023ctive hydrALAZINE (APRESOLINE) 50 mg tablet Take 50 mg by mouth two times a day.10/01/2023ctive losartan (COZAAR) 50 mg tablet Take 50 mg by mouth two times a day.10/27/2023ctive metoprolol succinate ER (TOPROL XL) 25 mg 24 hr tablet Take 25 mg by mouth once daily.10/27/2023ctive HYDROcodone-acetaminophen (NORCO) 5-325 mg per tablet Take 1 tablet by mouth every 12 hours as needed for pain.5Active Active Problems ProblemNoted DateDiagnosed DatePleural rcdtjtus89/24/2024Shortness of breath 12/23/2023Former lsynhd1610/27/2023-cell ujwgtbek35/29/6572XNMI07/29/2024 Essential gkkjztckdbeu52/08/2024AF (paroxysmal atrial fibrillation)06/06/2023 Social History Tobacco UseTypesPacks/DayYears UsedDateSmoking Tobacco: Never Assessed CommentsUnknownSex and Gender InformationValueDate RecordedSex Assigned at Not on fileLegal YhvIhqioc29/18/2024 8:46 AM EDTGender IdentityNot on fileSexual OrientationNot on file Last Filed Vital Signs Vital SignReadingTime TakenCommentsBlood Znkylwot827/5603 10:12 AM EST Qxanm369105/31/2024 10:12 AM ESTTemperature--Respiratory Rate--Oxygen Saturation 97%05/31/2024 10:12 AM ESTInhaled Oxygen Concentration--Lwubov04.3 kg (172 lb 9.9 oz)05/31/2024 10:12 AM QVGSqilvr576.2 cm (5' 7 )05/31/2024 10:12 AM ESTBody Mass Index27.0403 10:12 AM EST Plan of Treatment Health MaintenanceDue DateLast DoneCommentsAnxiety Wyotaxloj26/20/1973Depression Awluzcevo92/20/1973DTaP,Tdap,Td Vaccine (1 - Tdap)1974Mammogram Screening 1995CT Qnidztuxxbbl48/20/2000Cologuard (FIT-DNA)02/18/2000Fecal Occult Blood02/18/2000Lipid Jqyilbsmg62/20/1536Cumzrirspubxe19/20/2000Pneumococcal Vaccine: 50+ (1 of 1 - PCV)2005Shingrix Vaccine (1 of 2)2005 Ncgemwmpleu87Colorectal Cancer Vdevgwsld81/09/2016Bone Density Lflsaghwh16/20/2020Advance Directive Utxttkgevs19/01/2025Covid-19 Vaccine ( season)5006/01/2020, 04/20/2020Influenza Vaccine (#1)2024 01/22/2024, 01/06/2023, 01/01/2022, Additional history existsDiabetes Screening 4RSV Vaccine (1 - 1-dose 75+ series)2030Hepatitis C ExesrjadpWfntcgbvi29/06/2024 Insurance
--- OUTSIDE RECORDS SUMMARY | 2025-02-22 15:54 | XMS_ITS | Encounter Summary ---
Author Organization [facility] Address [address] [place] [address] Phone Care Team Providers Care Composition Instructor Name Role Phone Maryosbaldo Boom Olvin MIGUEL Primary Care Provider [phone] Encounter Details DateTypeDepartmentCare Team (Latest Contact Info)Vydmplqjkbq02/07/2025Telephone [facility] [address] [facility] [place] [address] Juancho Morejon MD [address] [facility] [address] [place] [address] Social History Tobacco UseTypesPacks/DayYears UsedDateSmoking Tobacco: FormerCigarettes Smokeless Tobacco: NeverAlcohol UseStandard Drinks/WeekCommentsNever0 (1 standard drink = 0.6 oz pure alcohol)CommentsUnknownSex and Gender InformationValueDate RecordedSex Assigned at BirthNot on fileLegal SexFemale 02/22/2022 4:53 PM ESTGender IdentityNot on fileSexual OrientationNot on file documented as of this encounter Functional Status * BPAnswerDate of VktfefukksKykbxg420/7402/04/2025 1:44 PM Jaylen Garcia MA * PulseAnswerDate of DostxbvlytTpnses7289/07/2025 1:44 PM Jaylen Garcia MA documented as of this encounter Miscellaneous Notes * Telephone Encounter - Suki Trinidad LPN - 02/08/2025 9:22 AM EST 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 documented in this encounter Plan of Treatment DateTypeDepartmentCare Team (Latest Contact Info)Xhnsmswmcrz05/18/2026 1:40 PM EDTOffice Visit [facility] [address] [phone] Juancho Morejon MD [address] [facility] [address], [facility] [address] [place] [address] documented as of this encounter Visit Diagnoses Not on filedocumented in this encounter Additional Health Concerns AssessmentNoted TimeA fall risk assessment has been completed for the patient 02/04/2025 1:43 PM ESTdocumented as of this encounter Care Teams Team MemberRelationshipSpecialtyStart DateEnd Date Boom Parker, [address] [place] [address] PCP - GeneralFamily Dnxegwxe99/10/24documented as of this encounter
--- OUTSIDE RECORDS SUMMARY | 2025-02-22 15:54 | XMS_ITS | Clinical Summary ---
Author Organization [facility] Address [address] [place] [address] Care Team Providers Care Accounting/Finance Tutor Name Role Phone Boom Parker MD Primary Care Provider [phone] Berta King MD Unavailable David Yu DO Unavailable [phone] Allergies Active AllergyReactionsCriticalityNoted DateCommentsFurosemideNausea Only 06/06/20237232IbfwmyzufdaduktrubuMlvqnkp88/08/2024 Other Reaction(s): unknown, hair loss Inoqvgwssv59/03/2024 Other Reaction(s): unknown Vgdhexyirtf60/08/2024 Other Reaction(s): Unknown Medications MedicationSigDispense QuantityRefillsLast FilledStart DateEnd DateStatus acetaminophen (Tylenol 8 Hour) 650 MG ER tablet Take 650 mg by mouth every 8 (eight) hours if sltete4909/25/2023ctive amLODIPine (Norvasc) 5 MG tablet Take 5 mg by mouth Daily as directedActive celecoxib (CeleBREX) 200 MG capsule Take 200 mg by mouth Daily09/19/2023ctive cholecalciferol (Vitamin D-3) 50 MCG (1999 UT) capsule Take 2,000 Units by mouth Daily08/11/2023ctive flecainide (Tambocor) 50 MG tablet Take 50 mg by mouth in the morning and 50 mg before bedtime.Active hydrALAZINE (Apresoline) 50 MG tablet Take 50 mg by mouth in the morning and 50 mg in the evening and 50 mg before bedtime.10/01/2023ctive metoprolol succinate XL (Toprol-XL) 25 MG 24 hr tablet Take 25 mg by mouth DailyActive naproxen (Naprosyn) 500 MG tablet Take 500 mg by mouth as needed in the morning and 500 mg as needed in the evening.Active losartan (Cozaar) 50 MG tablet Take 50 mg by mouth in the morning and 50 mg before bedtime.Active Active Problems ProblemNoted DateDiagnosed DateVenous sgfbtsbjirwxg49/31/5144Vhnlbubs32/31/2024 Abdominal pain10/13/2023cute wcrqtvbqo02/15/2024sthmatic ulejnhkshu21/15/2024 Wepxbfqbjwbt46/15/3962Qoowihfylsryhze96/15/2024Mesenteric lymphadenopathy 10/13/2023trial fibrillation with RVR10/13/2023Supraclavicular adenopathy 10/13/20237598Lmcgoj03/15/9374Mitlx43/08/2024Essential orytwnfmamaa64/08/2024High risk medication use06/06/2023AF (paroxysmal atrial fibrillation)06/06/2023 Lesion of buccal ccsvlv5203/10/2018Laryngopharyngeal reflux (LPR)02/10/2018 Ousyeomsdksa18/13/2018Biomechanical lesion, onmjzucedtj07/02/2011Fitting and adjustment of orthopedic qcwnlm1105/18/2010Non Hodgkin's lymphoma Overview (10/29/2023): B-cell Encounters DateTypeDepartmentCare BtvrWudnsbcvfiu90/14/2025External Result Encounter [facility] External Department Unsolicited Berta King MD 12/20/2024 4:00 PM EDTOffice Visit [facility] [address] [place] [phone] Oj Wright, Lymphoma, unspecified body region, unspecified lymphoma type (HCC) (Primary Dx); Venous fkbzouxypypua09/22/4501Wslshe30/19/2025External Result Encounter [facility] External Department Unsolicited Berta King MD 12/07/2024External Result Encounter [facility] External Department Unsolicited Berta King MD 12/07/2024External Result Encounter [facility] External Department Unsolicited Berta King MD 12/02/20247846Yncplf46/25/2025 4:00 PM EDTOffice Visit [facility] [address] [phone] Oj Wright DO Lymphoma, unspecified body region, unspecified lymphoma type (HCC) (Primary Dx); Venous kocacgqswcnzq87/25/2025Travelfrom Last 3 Months Family History Medical HistoryRelationNameCommentsCervical cancerMotherBreast cancerNeg HxColon cancerNeg HxOvarian cancerNeg HxRelationNameStatusCommentsFatherDeceasedMother DeceasedSister3 Social History Tobacco UseTypesPacks/DayYears UsedDateSmoking Tobacco: FormerCigarettes Smokeless Tobacco: Never Tobacco Cessation:Counseling Given: Not Answered Alcohol UseStandard Drinks/WeekCommentsNot Currently0 (1 standard drink = 0.6 oz pure alcohol)CommentsUnknownSex and Gender InformationValueDate Recorded Sex Assigned at BirthNot on fileLegal OynLyetpl87/15/2023 6:56 PM EDTGender IdentityNot on fileSexual OrientationNot on file Last Filed Vital Signs Vital SignReadingTime TakenCommentsBlood Rpubhjsm281/62011/22/2024 3:53 PM EDT Pulse--Temperature--Respiratory Rate--Oxygen Saturation--Inhaled Oxygen Concentration--Qntxuj97.2 kg (179 lb)11/22/2024 3:53 PM LLKJqjryi207.2 cm (5' 7 )11/22/2024 3:53 PM EDTBody Mass Index28.04011/22/2024 3:53 PM EDT Plan of Treatment Not on file Procedures Procedure NamePriorityDate/TimeAssociated DiagnosisCommentsUS CHEST02/11/2025 3:36 PM EST VIT. B12/FOLATE FOTMEBCFjfuqaq71/19/2025 11:21 AM EDT HHSEGEYOGgfyrpq57/19/2025 11:21 AM EDT IRON AND TOTAL IRON BINDING BKKPPYRVJgyvicj29/19/2025 11:21 AM EDT LACTATE PHOPFMTYQITUHBzdlnvq74/09/2025 10:28 AM EDT COMPREHENSIVE METABOLIC MXVKDBljqgxw39/09/2025 10:28 AM EDT CBC WITH AUTO YLUCFGNJCYDBTcwjwhz65/09/2025 10:28 AM EDT from Last 3 Months Results * US chest (02/11/2025 3:36 PM EST)Anatomical RegionLateralityModalityChest UltrasoundSpecimen (Source)Anatomical Location / LateralityCollection Method / VolumeCollection TimeReceived Time02/11/2025 3:36 PM EST Impressions 02/11/2025 3:40 PM EST No right pleural effusion. ?? Impression dictated by: Cr Solorzano M.D. ??02/11/2025 3:37 PM ? Dictation Location: RADIO-PC-16 ? Tech: [employer] ? Transcribed By: ? PWS ?02/11/25 1537 ? Dictated By: ?Cr Solorzano DO ?02/11/25 1536 ? Signed By: <Electronically signed by Cr Solorzano, DO in OV> ? 02/11/25 1537 Narrative 02/11/2025 3:40 PM EST [facility] [place] ?[address] ? [place] [address] ? Ultrasound Report ? Signed ? Patient: Artino,Anne Marie R ?MR#: [id number] ?? [id number] ? : 1955 ?Acct:[id number] ? Age/Sex: 69 / F ?ADM Date: 11/14/25 ? Loc: UL ?Room: ?Type: REG SDC ?? Attending Dr: Berta King MD ? Ordering Provider: Berta King MD ?? Date of Service: 02/11/25 ?? US/US chest: J94.0 - Chylous effusion ? Copies to: Berta King MD ? Ultrasound the chest obtained to assess for thoracentesis. ? 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 ??Shortness of breath ? The right pleural space scanned. ??No pleural effusion present. ? US/US chest ?? Procedure Note Radiology, RadiologistMD - 02/11/2025 [facility] [place] [address] Ultrasound Report Signed Patient: Anne Marie Caldera RMR#: [id number] : 5Acct:[id number] Age/Sex: 69 / FADM Date: 02/11/25 Loc: Room:Type: [facility] Attending Dr: Berta King MD Ordering Provider: Berta King MD Date of Service: 02/11/25 US/US chest: J94.0 - Chylous effusion Copies to: Berta King MD Ultrasound the chest obtained to assess for thoracentesis. 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 Shortness of breath The right pleural space scanned. No pleural effusion present. US/US chest IMPRESSION: No right pleural effusion. Impression dictated by: Cr Solorzano M.D. 02/11/2025 3:37 PM Dictation Location: [place] [address] Tech: [facility] Transcribed By: PAYAM 02/11/25 1537 Dictated By: rC Solorzano DO 02/11/25 1536 Signed By: <Electronically signed by Cr Solorzano, DO in OV> 02/11/25 1537 Authorizing ProviderResult TypeResult StatusBerta MARTINEZG PROCEDURESFinal Result * VIT. B12/FOLATE PROFILE (12/17/2024 11:21 AM EDT)ComponentValueRef RangeTest MethodAnalysis TimePerformed AtPathologist SignatureVITAMIN [id number] - 914 pg/mL12/17/2024 1:08 PM [facility] PluNZVOZX57.2>5.9 ng/mL 12/17/2024 1:07 PM [facility] CtrComment: Folate reference range: >5.9 ng/ml The WHO technical consultation on folate and vitamin b12 deficiencies has determined that folate concentrations less than 4 ng/ml are considered deficient. Specimen (Source)Anatomical Location / LateralityCollection Method / Volume Collection TimeReceived TimeOtherTopography unknown / Mokktwl5512/17/2024 11:21 AM EDT12/17/2024 11:21 AM EDT Narrative Authorizing ProviderResult TypeResult StatusBerta ESCOBAR BLOOD ORDERABLES Final ResultPerforming OrganizationAddressCity/State/ZIP CodePhone Number [facility] [address] [place] [address], [facility] [address] [place] [address] * Iron and TIBC (12/17/2024 11:21 AM EDT)ComponentValueRef RangeTest Method Analysis TimePerformed AtPathologist XmyeewvydEDDR1664 - 212 ug/dL12/17/2024 12:41 PM [facility] CtrTOTAL IRON BINDING ARZHAEPQ424569 - 450 ug/dL12/17/2024 12:41 PM [facility]% IRON FMRVHISMOE70.120 - 50 %12/17/2024 12:41 PM [facility] FEDFAXNJRPC109531 - 362 mg/dL12/17/2024 12:41 PM [facility] CtrSpecimen (Source)Anatomical Location / LateralityCollection Method / Volume Collection TimeReceived TimeOtherTopography unknown / Njgwnzl2112/17/2024 11:21 AM EDT12/17/2024 11:21 AM EDT Narrative Authorizing ProviderResult TypeResult StatusBerta ESCOBAR BLOOD ORDERABLES Final ResultPerforming OrganizationAddressCity/State/ZIP CodePhone Number [address] [address], [facility] [address] [place] [address] * Ferritin (12/17/2024 11:21 AM EDT)ComponentValueRef RangeTest MethodAnalysis TimePerformed AtPathologist GoouqrqqxUXOXZWWN44.711.0 - 306.8 ng/mL12/17/2024 1:03 PM [facility] CtrSpecimen (Source)Anatomical Location / LateralityCollection Method / VolumeCollection TimeReceived TimeOther Topography unknown / Eawmznn5712/17/2024 11:21 AM EDT12/17/2024 11:21 AM EDT Narrative Authorizing ProviderResult TypeResult StatusBerta ESCOBAR BLOOD ORDERABLES Final ResultPerforming OrganizationAddressCity/State/ZIP CodePhone Number [facility] [address] [place] [address], [facility] [address] [place] [address] * CBC auto differential (12/07/2024 10:28 AM EDT)ComponentValueRef RangeTest MethodAnalysis TimePerformed AtPathologist SignatureWBC4.93.8 - 11.6 [CFU]/mL 12/07/2024 10:47 AM [facility] CtrUNCORRECTED WHITE BLOOD COUNT4.93.8 - 11.6 10*3/uL12/07/2024 10:47 AM [facility] CtrRBC4.023.60 - 5.00 10*6/uL12/07/2024 10:47 AM [facility] JcxHWSOGJAZDH32.811.8 - 15.4 g/dL12/07/2024 10:47 AM [facility] YtkEOYFIBDZSK97.734.0 - 46.4 %12/07/2024 10:47 AM [facility] QyyOZN48.880 - 100 fL12/07/2024 10:47 AM [facility] OjaGEQ32.824.7 - 34.3 pg12/07/2024 10:47 AM [facility] CunQNLB49.932.0 - 35.0 g/dL12/07/2024 10:47 AM [facility] CtrRED CELL DISTRIBUTION WIDTH, RDW13.511.9 - 15.3 % 12/07/2024 10:47 AM [facility] CtrPLATELET FOBCU506112 - 450 10*3/uL12/07/2024 10:47 AM [facility] CtrMEAN PLATELET VOLUME, MPV7.06.3 - 10.7 fL12/07/2024 10:47 AM [facility] CtrNEUTROPHILS, %63.4. %12/07/2024 10:47 AM [facility] LYMPHOCYTES, %23.5. %12/07/2024 10:47 AM [facility] MONOCYTE/MACROPHAGE, %9.8. %12/07/2024 10:47 AM [facility] CtrEOSINOPHILS, %2.1. %12/07/2024 10:47 AM [facility] BASOPHILS, %1.2. %12/07/2024 10:47 AM [facility] CtrNRBC0.1 0 - 0.5 /100{WBC}12/07/2024 10:47 AM [facility] NEUTROPHILS3.11.8 - 7.7 10*3/uL12/07/2024 10:47 AM [facility] CtrLYMPHOCYTES1.11.00 - 4.8 10*3/uL12/07/2024 10:47 AM [facility] CtrMONOCYTES0.50.0 - 0.8 10*3/uL12/07/2024 10:47 AM [facility] CtrEOSINOPHILS0.10.0 - 0.45 10*3/uL12/07/2024 10:47 AM [facility] CtrBASOPHILS0.10.0 - 0.2 10*3/uL12/07/2024 10:47 AM [facility] CtrSpecimen (Source)Anatomical Location / LateralityCollection Method / VolumeCollection TimeReceived TimeBlood (Blood)12/07/2024 10:28 AM EDT12/07/2024 10:36 AM EDT Narrative Authorizing ProviderResult TypeResult StatusBerta Aguilerase BOWDENLAB BLOOD ORDERABLES Final ResultPerforming OrganizationAddressCity/State/ZIP CodePhone Number [facility] [address] [place] [address], [facility] [address] [place] [address] * Lactate dehydrogenase (12/07/2024 10:28 AM EDT)ComponentValueRef RangeTest MethodAnalysis TimePerformed AtPathologist SignatureLDH LACTATE DEHYDROGENASE 593391 - 271 U/L12/07/2024 11:04 AM [facility] CtrSpecimen (Source)Anatomical Location / LateralityCollection Method / VolumeCollection TimeReceived TimeOtherTopography unknown / Jzaqkov2012/07/2024 10:28 AM EDT 12/07/2024 10:36 AM EDT Narrative Authorizing ProviderResult TypeResult StatusBerta King LAB BLOOD ORDERABLES Final ResultPerforming OrganizationAddressCity/State/ZIP CodePhone Number [facility] [address] [place] [address], [facility] [address] [place] [address] * (ABNORMAL) Comprehensive metabolic panel (12/07/2024 10:28 AM EDT)Component ValueRef RangeTest MethodAnalysis TimePerformed AtPathologist SignatureGlucose 8470 - 100 mg/dL12/07/2024 11:04 AM [facility] CtrComment: Random Glucose Reference Range is dependent on time and content of last meal. Glucose of more than 200 mg/dL in a nonstressed, ambulatory subject supports the diagnosis of Diabetes Mellitus. ADA recommended reference range TKE833 - 25 mg/dL12/07/2024 11:04 AM [facility] CtrCREATININE 0.880.60 - 1.20 mg/dL12/07/2024 11:04 AM [facility]tr ESTIMATED GFR>60. 11:04 AM [facility] AxmVmybct517 136 - 145 mmol/L12/07/2024 11:04 AM [facility] CtrPotassium, Bld4.13.5 - 5.1 mmol/L12/07/2024 11:04 AM [facility]tr Igcanyzv81477 - 107 mmol/L12/07/2024 11:04 AM [facility] Carbon Thfxhad08.021.0 - 31.0 mmol/L12/07/2024 11:04 AM [facility] CtrAnion Gap10.16.0 - 15.009 11:04 AM [facility] CtrCalcium8.98.6 - 10.3 mg/dL12/07/2024 11:04 AM [facility] CtrTOTAL PROTEIN6.3(L)6.4 - 8.9 g/dL12/07/2024 11:04 AM [facility] CtrALBUMIN LEVEL4.13.5 - 5.7 g/dL12/07/2024 11:04 AM [facility] CtrGLOBULIN2.2g/dL12/07/2024 11:04 AM [facility] CtrALBUMIN/GLOBULIN RATIO1.909 11:04 AM [facility] CtrBILIRUBIN,TOTAL0.70.3 - 1.0 mg/dL12/07/2024 11:04 AM [facility] CtrASPARTATE AMINO RTZFUNNJMSY0441 - 39 U/L12/07/2024 11:04 AM [facility] CtrALANINE PUUHESWTZHFEAYUY094 - 52 U/L 12/07/2024 11:04 AM [facility] CtrALKALINE GLOINKCSDXR1377 - 104 U/L12/07/2024 11:04 AM [facility] CtrCREATININE CLR CALC REDDCMXA32.3109 11:04 AM [facility] CtrSpecimen (Source)Anatomical Location / LateralityCollection Method / VolumeCollection TimeReceived TimeOtherTopography unknown / Xikqiws3812/07/2024 10:28 AM EDT 12/07/2024 10:36 AM EDT Narrative Authorizing ProviderResult TypeResult StatusBerta King MDLAB BLOOD ORDERABLES Final ResultPerforming OrganizationAddressCity/State/ZIP CodePhone Number [facility] [address] [place] [address], [facility] [address] [place] [address] from Last 3 Months Insurance Care Teams Team MemberRelationshipSpecialtyStart DateEnd Date Boom Parker MD [address] [place] [address] [address] [place] [address] PCP - GeneralFamily Medicine10/01/23 Berta King MD [address] [place] [address] Referring PhysicianOncology10/13/23 David uY DO [address] [place] [address] Otolaryngology10/13/23
--- OUTSIDE RECORDS SUMMARY | 2025-02-22 15:54 | XMS_ITS | Clinical Summary ---
Author Organization [facility] Address [address] [facility], [address] [place] [address] Care Team Providers Care Entry Level Truck Driver Name Role Phone Unavailable Primary Care Provider Unavailabl e Allergies Active AllergyReactionsCriticalityNoted DateCommentsFurosemideNausea Only 06/06/2023HydrochlorothiazideOther (See Comments)06/06/2023 Other Reaction(s): unknown, hair loss EairswzkltBqpjc59/03/2024 Other Reaction(s): unknown RivaroxabanOther (See Comments),Cough06/06/2023 Other Reaction(s): Unknown Medications MedicationSigDispense QuantityRefillsLast FilledStart DateEnd DateStatus acetaminophen (TYLENOL) 650 MG extended release tablet Take 1 tablet by mouth09/25/2023ctive acyclovir (ZOVIRAX) 400 MG tablet 1 tablet every 4 hours (while awake)11/27/2023ctive amLODIPine (NORVASC) 5 MG tablet Take 1 tablet by mouth daily08/26/2017Active celecoxib (CELEBREX) 200 MG capsule Take 1 capsule by mouth as bsvhnb5809/19/2023ctive vitamin D (CHOLECALCIFEROL) 50 MCG (1999) CAPS capsule Take 1 capsule by mouth daily08/11/2023ctive cyclobenzaprine (FLEXERIL) 10 MG tablet 2 times daily08/11/2023ctive flecainide (TAMBOCOR) 50 MG tablet Take 1 tablet by mouth daily08/26/2017Active hydrALAZINE (APRESOLINE) 50 MG tablet Take 1 tablet by mouth 2 times daily10/01/2023ctive losartan (COZAAR) 50 MG tablet Take 1 tablet by mouth daily10/27/2023ctive metoprolol succinate (TOPROL XL) 50 MG extended release tablet Take 1 tablet by mouth daily08/26/2017Active naproxen (NAPROSYN) 500 MG tablet Take 1 tablet by mouth as needed for PainActive ondansetron (ZOFRAN-ODT) 8 MG TBDP disintegrating tablet Take 0.5 tablets by mouth every 8 hours as needed for Vomiting or Nausea 10/22/2023ctive predniSONE (DELTASONE) 50 MG tablet Daily11/03/2023ctive sulfamethoxazole-trimethoprim (BACTRIM DS;SEPTRA DS) 800-160 MG per tablet Take 1 tablet by mouth Every Day11/27/2023ctive Active Problems ProblemNoted DateDiagnosed DateNon Hodgkin's ktomaugb46/31/2024 Overview (12/16/2023): B-cell Social History Tobacco UseTypesPacks/DayYears UsedDateSmoking Tobacco: FormerCigarettes Smokeless Tobacco: Former Tobacco Cessation:Counseling Given: Not Answered CommentsNoSex and Gender InformationValueDate RecordedSex Assigned at BirthNot on fileLegal TnjEzoomk18/06/2024 8:18 AM EDTGender IdentityNot on file Sexual OrientationNot on file Last Filed Vital Signs Vital SignReadingTime TakenCommentsBlood Pressure--Ejzbo4618/16/2024 3:04 PM EDT Zwwekflimkr12.2 ??C (97.2 ??F)12/15/2023 3:04 PM EDTRespiratory Rate--Oxygen Bsucncgodn71%12/15/2023 3:04 PM EDTInhaled Oxygen Concentration--Pyhquo45.7 kg (178 lb)12/15/2023 3:04 PM XAMFncuye879.2 cm (5' 7 )12/15/2023 3:04 PM EDTBody Mass Index27.8812/15/2023 3:04 PM EDT Plan of Treatment Health MaintenanceDue DateLast DoneCommentsDepression Reyuwi7202/17/1967Hepatitis C rouvjo6202/17/1973DTaP/Tdap/Td vaccine (1 - Tdap)1974Pneumococcal 50+ years Vaccine (1 of 2 - PCV)1974Shingles vaccine (1 of 2)1974Breast cancer qxamfa1602/17/19958052Fbpcqj45/20/4867Izbdxxyfnxj80/20/2000Colorectal Cancer Ehwowj1502/18/2000FIT/FOBT: Average risk02/18/2000Fecal-DNA (Cologuard): Average risk02/18/2000Sigmoidoscopy/CT iyilszjvymdx02/20/2000DEXA (modify frequency per FRAX score)2010Flu vaccine (#1)510/11/2022, 01/01/2022, 12/30/2019, Additional history existsCOVID-19 Vaccine ( season) 503/06/2020, 1Respiratory Syncytial Virus (RSV) or age 60 yrs+ (1 - 1-dose 75+ series)2030Hepatitis A vaccineAged OutNo longer eligible based on patient's age to complete this topicHepatitis B vaccine Aged OutNo longer eligible based on patient's age to complete this topicHib vaccineAged OutNo longer eligible based on patient's age to complete this topic Meningococcal (ACWY) vaccineAged OutNo longer eligible based on patient's age to complete this topicMeningococcal B vaccineAged OutNo longer eligible based on patient's age to complete this topicPolio vaccineAged OutNo longer eligible based on patient's age to complete this topic Insurance
--- OUTSIDE RECORDS SUMMARY | 2025-02-22 15:54 | XMS_ITS | Encounter Summary ---
Author Organization [facility] Address [address] [place] [address] Care Team Providers Care Teenage Program Director Name Role Phone Boom Parker MD Primary Care Provider [phone] Berta King MD Unavailable [place] David Mini DO Unavailable [phone] Encounter Details DateTypeDepartmentCare Team (Latest Contact Info)Bkkxemehagb38/14/2025External Result Encounter [facility] External Department Unsolicited Berta King MD [address] [place] [address] Social History Tobacco UseTypesPacks/DayYears UsedDateSmoking Tobacco: FormerCigarettes Smokeless Tobacco: NeverAlcohol UseStandard Drinks/WeekCommentsNot Currently0 (1 standard drink = 0.6 oz pure alcohol)CommentsUnknownSex and Gender InformationValueDate RecordedSex Assigned at BirthNot on fileLegal SexFemale 06/12/2022 6:56 PM EDTGender IdentityNot on fileSexual OrientationNot on file documented as of this encounter Plan of Treatment Not on file documented as of this encounter Procedures Procedure NamePriorityDate/TimeAssociated DiagnosisCommentsUS CHEST02/11/2025 3:36 PM EST documented in this encounter Results * US chest (02/11/2025 3:36 PM EST)Anatomical RegionLateralityModalityChest UltrasoundSpecimen (Source)Anatomical Location / LateralityCollection Method / VolumeCollection TimeReceived Time11/ 3:36 PM EST Impressions 02/11/2025 3:40 PM EST No right pleural effusion. ?? Impression dictated by: Cr Solorzano M.D. ??02/11/2025 3:37 PM ? Dictation Location: RADIO-PC-16 ? Tech: Neva Woodwardes ? Transcribed By: ? PWS ?02/11/25 1537 ? Dictated By: ?Cr Solorzano DO ?02/11/25 1536 ? Signed By: <Electronically signed by Cr Solorzano, DO in OV> ? 02/11/25 1537 Narrative 02/11/2025 3:40 PM EST [facility] [address] [place] ?[address] ? [place] [address] ? Ultrasound Report ? Signed ? Patient: Anne Marie Caldera R ?MR#: [id number] ?? [id number] ? : 1955 ?Acct:[id number] ? Age/Sex: 69 / F ?ADM Date: 02/11/25 ? Loc: UL ?Room: ?Type: REG SDC [...] ? US/US chest ?? Procedure Note Radiology, MD Korey - 02/11/2025 [facility] [address] [place] [address] [place] [address] Ultrasound Report Signed Patient: Anne Marie Caldera RMR#: [id number] : 5Acct:[id number] Age/Sex: 69 / FADM Date: 02/11/25 Loc: Room:Type: [facility] Attending Dr: Berta King MD Ordering Provider: [...] Solorzano M.D. 02/11/2025 3:37 PM Dictation Location: [place] [address] Tech: [facility] Transcribed By: PWS 02/11/25 1537 Dictated By: Cr Solorzano DO 02/11/25 1536 Signed By: <Electronically signed by Cr Solorzano DO in OV> 02/11/25 1537 Authorizing ProviderResult TypeResult StatusBerta King MDIMJosé Manuel US PROCEDURESFinal Result documented in this encounter Visit Diagnoses Not on filedocumented in this encounter Care Teams Team MemberRelationshipSpecialtyStart DateEnd Date Boom Parker MD [address] [place] [address] [address] [place] [address] PCP - GeneralFamily Medicine10/01/23 Berta King MD [address] [place] [address] [place] [address] Referring PhysicianOncology10/13/23 David Yu DO [address] [place] [address] Otolaryngology10/13/23documented as of this encounter
--- OUTSIDE RECORDS SUMMARY | 2025-02-22 15:54 | XMS_ITS ---
Author Organization [facility] Address [address] [place] [address] Care Team Providers Care Hollow Core Door Frame Assembler Name Role Phone Boom Parker MD Primary Care Provider [phone] Berta King MD Unavailable David Yu DO Unavailable [phone] Active Problems ProblemNoted DateDiagnosed DateVenous rsaqxksclbhtn34/31/5805Kchinvfu50/31/2024 Abdominal pain10/13/2023cute jqohnhnfe63/15/2024sthmatic seihpdfncw15/15/2024 Aozggeuzwvzz54/15/4131Wbhbabtdgcopjje16/15/2024Mesenteric lymphadenopathy 10/13/2023trial fibrillation with RVR10/13/2023Supraclavicular adenopathy 10/13/20234607Zudrsx52/15/6691Elloz63/08/2024Essential cgpyyrqcxpsk59/08/2024High risk medication use06/06/2023AF (paroxysmal atrial fibrillation)06/06/2023 Lesion of buccal ediksr5303/10/2018Laryngopharyngeal reflux (LPR)02/10/2018 Husgrgtqusxo15/13/2018Biomechanical lesion, ypifrbmsjxa65/02/2011Fitting and adjustment of orthopedic gelxza9905/18/2010Non Hodgkin's lymphoma Overview (10/29/2023): B-cell Current Treatment and Therapy Plans No current plan information found. Past Treatment and Therapy Plans No past plan information found. Lifetime Dose Tracking * ChemicalLifetime DoseAutomatic EntryManual VkbcuOfeqsdigl91.5 mSv18.5 mSv0 mSv
--- OUTSIDE RECORDS SUMMARY | 2025-02-22 15:54 | XMS_ITS | Encounter Summary ---
Author Organization [facility] Address [address] [place] [address] Phone Care Team Providers Care Airplane Flight Attendant Name Role Phone Maryosbaldo Boom Olvin MIGUEL Primary Care Provider [phone] Encounter Details DateTypeDepartmentCare Team (Latest Contact Info)Rdglxoitdke47/11/2025Orders Only [place] [id number] [address] Fatimah Jimenez LPN PAF (paroxysmal atrial fibrillation) (Multi) Social History Tobacco UseTypesPacks/DayYears UsedDateSmoking Tobacco: FormerCigarettes Smokeless Tobacco: NeverAlcohol UseStandard Drinks/WeekCommentsNever0 (1 standard drink = 0.6 oz pure alcohol)CommentsUnknownSex and Gender InformationValueDate RecordedSex Assigned at BirthNot on fileLegal SexFemale 02/22/2022 4:53 PM ESTGender IdentityNot on fileSexual OrientationNot on file documented as of this encounter Plan of Treatment DateTypeDepartmentCare Team (Latest Contact Info)Tueohdfohqu12/18/2026 1:40 PM EDTOffice Visit [place] [id number] [address] Juancho Morejon MD [address] [facility], [facility] [address] [place] [address] documented as of this encounter Visit Diagnoses Diagnosis PAF (paroxysmal atrial fibrillation) (Multi) Atrial fibrillation documented in this encounter Additional Health Concerns AssessmentNoted TimeA fall risk assessment has been completed for the patient 02/04/2025 1:43 PM ESTdocumented as of this encounter Care Teams Team MemberRelationshipSpecialtyStart DateEnd Date Boom Parker DO [address] [place], [place] [id number] PCP - GeneralFamily Oxhvqdfa46/10/24documented as of this encounter
--- OUTSIDE RECORDS SUMMARY | 2025-02-22 15:54 | XMS_ITS | Clinical Summary ---
Author Organization [facility] Address [address] [place] [address] Phone Care Team Providers Care Irrigation Teacher Name Role Phone Boom Parker DO Primary Care Provider [phone] Allergies Active AllergyReactionsCriticalityNoted DateCommentsFurosemideNausea Only 06/06/20233229GvcuhfimvjjyqotmdahEtsernr96/08/3332CduzcisbunjDwjcbxw79/08/2024 SpironolactoneItching,QfaxFyq4306/04/2024 Medications MedicationSigDispense QuantityRefillsLast FilledStart DateEnd DateStatus acetaminophen (Tylenol 8 HOUR) 650 mg ER tablet Take 1 tablet (650 mg) by mouth every 8 hours if needed for mild pain (1 - 3). Do not crush, chew, or split.Active celecoxib (CeleBREX) 200 mg capsule Take 1 capsule (200 mg) by mouth early in the morning..5Active naproxen (Naprosyn) 500 mg tablet Take 1 tablet (500 mg) by mouth every 12 hours.5Active cyclobenzap-irritant cntr irr2 10 mg kit Daily at bedtime as needed for muscle pain08/11/2023ctive aspirin 81 mg EC tablet Indications:PAF (paroxysmal atrial fibrillation) (Multi)Take 1 tablet (81 mg) by mouth 2 times a week.ctive amLODIPine (Norvasc) 5 mg tablet Indications:Essential hypertensionTake 1 tablet (5 mg) by mouth once daily. as directed 90 tablet ctive flecainide (Tambocor) 50 mg tablet Indications:PAF (paroxysmal atrial fibrillation) (Multi)Take 1 tablet (50 mg) by mouth 2 times a day. 180 tablet tive hydrALAZINE (Apresoline) 50 mg tablet Indications:Essential hypertensionTake 1 tablet (50 mg) by mouth 2 times a day. 180 tablet tive losartan (Cozaar) 50 mg tablet Indications:Essential hypertensionTake 1 tablet (50 mg) by mouth 2 times a day. 180 tablet ctive metoprolol succinate XL (Toprol-XL) 25 mg 24 hr tablet Indications:PAF (paroxysmal atrial fibrillation) (Multi),Essential hypertension Take 1 tablet (25 mg) by mouth once daily. 90 tablet tive sulfamethoxazole-trimethoprim (Bactrim DS) 800-160 mg tablet Take 1 tablet by mouth 3 (three) times a week.Discontinued (Discontinued by another clinician) cholecalciferol, vitamin D3, (VITAMIN D3 ORAL) Take 3,000 Units by mouth once a day on Friday, Friday, and Friday.02/04/2025 Discontinued(Discontinued by another clinician) acyclovir (Zovirax) 400 mg tablet Take 1 tablet (400 mg) by mouth 2 times a day.02/04/2025Discontinued (Discontinued by another clinician) amLODIPine (Norvasc) 5 mg tablet Indications:Essential hypertensionTake 1 tablet (5 mg) by mouth once daily. as directed 90 tablet Discontinued(Reorder) losartan (Cozaar) 50 mg tablet Indications:Essential hypertensionTake 1 tablet (50 mg) by mouth 2 times a day. 180 tablet 11:36 AM EDTDiscontinued(Reorder) metoprolol succinate XL (Toprol-XL) 25 mg 24 hr tablet Indications:PAF (paroxysmal atrial fibrillation) (Multi),Essential hypertension TAKE 1 TABLET BY MOUTH ONCE DAILY 90 tablet 12:41 PM EDTDiscontinued(Reorder) flecainide (Tambocor) 50 mg tablet Indications:PAF (paroxysmal atrial fibrillation) (Multi)TAKE 1 TABLET BY MOUTH TWICE DAILY 180 tablet 12:41 PM EDTDiscontinued(Reorder) hydrALAZINE (Apresoline) 50 mg tablet Indications:Essential hypertensionTAKE 1 TABLET BY MOUTH TWICE DAILY 180 tablet 11:36 AM EDT1Discontinued(Reorder) Active Problems ProblemNoted DateDiagnosed DateLeft atrial ehycuqdfmz14/07/2025Right atrial gdhcilcz27/07/2025bnormal ehjokvktztrpfm22/07/2025Pleural wyruefaf99/24/2024 Shortness of ycqvdx1112/23/2023MI 28.0-28.9,adult10/27/2023Former smoker 10/27/2023-cell odyrqnqo95/29/5140SDKJ27/29/2024Essential hypertension 06/06/2023AF (paroxysmal atrial fibrillation)06/06/2023ough in adult06/06/2023 High risk medication use06/06/2023 Encounters DateTypeDepartmentCare OrltYxgeufnfmco39/11/2025Orders Only [address] [address] Fatimah Jimenez LPN PAF (paroxysmal atrial fibrillation) (Multi)02/04/2025 1:40 PM ESTOffice Visit [address] [address] Juancho Morejon MD PAF (paroxysmal atrial fibrillation) (Multi) (Primary Dx); High risk medication use; Left atrial dilatation; Coronary atherosclerosis due to severely calcified coronary lesion; Abnormal echocardiogram; Right atrial dilation; Essential hypertension; Former smoker; BMI 28.0-28.9,adult Discharge Disposition: Home02/04/2025Telephone [facility] [address] [facility] [address] [place] [address] Juancho Morejon MD 02/04/20251399Fsnlkh43/15/2025Refill [address] [place] [address] Juancho Morejon MD Essential nckzohmaehbk58/26/2025Scanned Document [facility] [address] [place] [address] Scanning, Generic Provider 12/03/2024Refill [facility] [address] [facility] [address] [place] [address] Juancho Morejon MD PAF (paroxysmal atrial fibrillation) (Multi); Essential hypertensionfrom Last 3 Months Immunizations ImmunizationAdministration DatesNext DueFlu vaccine (IIV4), preservative free *Check age/dose*01/06/2023Flu vaccine, trivalent, preservative free, HIGH-DOSE, age 65y+ (Fluzone)01/22/2024,01/01/2022,04/22/2017Influenza, Unspecified 01/01/2022,04/22/2017,03/31/2017,12/29/2014Influenza, injectable, quadrivalent 12/30/2019Influenza, seasonal, ydklduhggn50/01/2025Moderna SARS-CoV-2 Ygcogkfjnxc19/04/2021,1Pfizer Purple Cap BSND-FkN-624/21/2021 Family History Medical HistoryRelationNameCommentsHeart attackFatherHeart attackPaternal GrandfatherstentSisterRelationNameStatusCommentsFatherPaternal GrandfatherSister Social History Tobacco UseTypesPacks/DayYears UsedDateSmoking Tobacco: FormerCigarettes Smokeless Tobacco: Never Tobacco Cessation:Counseling Given: Not Answered Alcohol UseStandard Drinks/WeekCommentsNever0 (1 standard drink = 0.6 oz pure alcohol)CommentsUnknownSex and Gender InformationValueDate RecordedSex Assigned at BirthNot on fileLegal NsjYuqkqx28/25/2022 4:53 PM ESTGender Identity Not on fileSexual OrientationNot on file Last Filed Vital Signs Vital SignReadingTime TakenCommentsBlood Womieuzw204/7411 1:44 PM EST Vioge8682 1:44 PM ESTTemperature--Respiratory Rate--Oxygen Saturation-- Inhaled Oxygen Concentration--Vfsvxg15.6 kg (180 lb)02/04/2025 1:44 PM ESTHeight 170.2 cm (5' 7 )02/04/2025 1:44 PM ESTBody Mass Index28.19104/06/2024 1:44 PM EST Plan of Treatment DateTypeDepartmentCare Team (Latest Contact Info)Uwesjkqeqkq39/18/2026 1:40 PM EDTOffice Visit [facility] [address] [facility] [address] [place] [address] Juancho Morejon MD [address] [facility] [address] [place] [address] Health MaintenanceDue DateLast DoneCommentsCT Hhurpgquhqak1955FIT-DNA (Cologuard)1955FIT1955Lipid Panel1955 1733Xjsptkxifakpp1955 MMR Vaccines (1 of 1 - Standard series)02/18/1956Diabetes Nufgareqy04/20/1973 Hepatitis C Ifoulwfqw06/20/1973Pneumococcal Vaccine (1 of 2 - PCV)1974 Zoster Vaccines (1 of 2)1974DTaP/Tdap/Td Vaccines (1 - Tdap)1977RSV High Risk: (Elderly (60+) or Population) (1 - Risk 50-74 years 1-dose series)2005Bone Density Scan02/18/2020Yearly Adult Tocjwpvf70/24/2024 01/20/2023, 9988Kzbmmituusc58Colorectal Cancer Screening 5COVID-19 Vaccine (2024- season)5006/01/2020, 04/20/2020, 04/20/20201443Yhbrvibzb68Irritable Bowel SyndromeDiscontinued 04/08/2014Influenza BqwwxxrYsmwygaqj18/01/2025, 01/22/2024, 01/06/2023, Additional history existsHIB VaccinesAged OutNo longer eligible based on patient's age to complete this topicHPV VaccinesAged OutNo longer eligible based on patient's age to complete this topicHepatitis A VaccinesAged OutNo longer eligible based on patient's age to complete this topicHepatitis B VaccinesAged OutNo longer eligible based on patient's age to complete this topicIPV Vaccines Aged OutNo longer eligible based on patient's age to complete this topic Meningococcal VaccineAged OutNo longer eligible based on patient's age to complete this topicRotavirus VaccinesAged OutNo longer eligible based on patient's age to complete this topic Procedures Procedure NamePriorityDate/TimeAssociated DiagnosisCommentsECG 12-LEADRoutine 02/04/2025 1:40 PM EST PAF (paroxysmal atrial fibrillation) (Multi) OUTSIDE LAB SCAN12/24/2024 XDXIFSFDSMP48/09/2015 from Last 3 Months or Most Recently Relevant to Health Maintenance Results * ECG 12 Lead (02/04/2025 1:40 PM EST)Specimen (Source)Anatomical Location / LateralityCollection Method / VolumeCollection TimeReceived Time Narrative [facility] - 02/04/2025 4:39 PM EST Normal sinus rhythm, incomplete right bundle branch block, septal myocardial infarction undetermined age, abnormal ECG Authorizing ProviderResult TypeResult StatusJuancho GARCIAG ORDERABLES Final ResultPerforming OrganizationAddressCity/State/ZIP CodePhone Number CPACS * OUTSIDE LAB SCAN (12/24/2024) Narrative 12/24/2024 Ordered by an unspecified provider. Authorizing ProviderResult TypeResult StatusGeneric Provider ScanningOUTSIDE SCANFinal Result * COLONOSCOPY (04/08/2014)Anatomical RegionLateralityModalityEndoscopy Narrative 04/08/2014 Ordered by an unspecified provider. Authorizing ProviderResult TypeResult StatusOnbase ConversionENDOSCOPY PROCEDURE ORDERABLESFinal Result from Last 3 Months or Most Recently Relevant to Health Maintenance Insurance on file * Guarantor: Anne Marie Caldera TypeRelation to PatientDate of BirthPhone Billing AddressPersonal/IwfgaiJmnv[address] [place] [phone] on file Care Teams Team MemberRelationshipSpecialtyStart DateEnd Date Boom Parker DO [address] [place] [address] PCP - [facility] Nougglzk79/10/24
--- NOTE | 2025-02-22 16:00 | CA_ITS ---
Patient Name: ERWIN HILL MR#: [id number] : 1955 Exam Date: 02/22/2025 Ordering Doctor: DR SEDA MEDINA ECHOCARDIOGRAM REPORT PROCEDURE: CA ECHO DOPPLER COMPLETE INDICATIONS: Abnormal echocardiogram, dilatation of left and right atrium COMPARISON: None. DESCRIPTION: COMPLETE ECHOCARDIOGRAM Real-time transthoracic echocardiography with 2D, M-mode, spectral and color flow Doppler performed. QUALITY: Technical quality was good. LEFT VENTRICLE: Normal chamber size. Mild concentric left ventricular hypertrophy. Global left ventricular systolic function is normal. Visual estimation of left ventricular ejection fraction is 65-70%. Global longitudinal myocardial strain is normal at 23.1%. LV EF: Normal left ventricular ejection fraction, (>55%). DIASTOLIC: Diastolic function is indeterminate. ATRIAL SEPTUM: LEFT ATRIUM: Moderate dilatation. RIGHT ATRIUM: Moderate dilatation. RIGHT VENTRICLE: Normal chamber size. Normal right ventricular systolic function. TRICUSPID VALVE: Normal mobility and thickness. No stenosis with trivial regurgitation. No evidence of pulmonary hypertension. The RVSP measures 23 mmHg. MITRAL VALVE: Normal mobility and thickness. No evidence of mitral valve stenosis. There is no mitral annular calcification. Mild mitral regurgitation. AORTIC VALVE: Normal trileaflet appearance. No visible sclerosis. Normal leaflet mobility. No evidence of aortic valve stenosis. Trivial aortic regurgitation. AORTIC ROOT: Normal diameter and appearance. The aortic root measures 3.5 cm. The ascending aorta is normal in size and measures 3.5 cm. PULMONIC VALVE: Normal thickness and mobility. No stenosis. No regurgitation. PERICARDIUM: No evidence of pericardial effusion. IVC: Collapses with inspiration. The IVC is normal in size measuring 1.9 cm. PLEURA: CONCLUSION: 1. Mild concentric left ventricular hypertrophy with normal systolic function. Estimated LVEF is 65 to 70%. 2. Normal right ventricular size and systolic function. 3. Moderate biatrial dilatation. 4. Mild mitral regurgitation. 5. Normal right-sided pressures. Adult Echocardiography Procedure Report Left Ventricle LVEDD (3.7 - 5.6 cm): 4.80 cm LVESD (2.2 - 4.0 cm): 2.90 cm LVIVS thickness (0.6 - 1.2 cm): 1.20 cm LVPW thickness (0.5 - 1.0 cm): 1.03 cm e': 0.08 m/s E - e': 9.57 LVOT Max Gradient: 6.15 mm[Hg] LVOT Area (cm2): 1.24 m/s Peak Velocity (LVOT): 1.24 m/s Mean Velocity (LVOT): 0.82 m/s LVOT Diameter 2.36 cm Left Ventricular Ejection Fraction: 65-70 % Left Atrium LA Volume Index (2D A2C): 56.07 ml/m2 Left Atrium Systolic Dimension: 4.29 cm Mitral Valve MV E to A Ratio: 0.87 Mitral Valve A-Wave Peak Velocity: 0.85 m/s Mitral Valve E-Wave Peak Velocity: 0.73 m/s Right Ventricle RV Internal Diastolic Dimension: 3.95 cm Aorta AO Root Diam: 3.47 cm Ascending Ao Diam: 3.51 cm Aortic Valve AoV Area (Peak Rebel): 3.49 cm2, 3.49 cm2 AoV Area (VTI): 3.87 cm2, 3.87 cm2 Peak Velocity(Antegrade Flow): 1.56 m/s Peak Gradient(Antegrade Flow): 9.71 mm[Hg] Mean Velocity(Antegrade Flow): 0.99 m/s Mean Gradient(Antegrade Flow): 4.53 mm[Hg] Velocity Time Integral: 32.08 cm Tricuspid Valve Peak Velocity (Regurgitant Flow): 2.18 m/s, 1.86 m/s, 2.24 m/s Pulmonic Valve Mean Gradient: 1.61 mm[Hg], 2.07 mm[Hg] Mean Velocity: 0.59 m/s, 0.66 m/s Peak Velocity: 0.92 m/s Peak Gradient: 2.95 mm[Hg], 3.80 mm[Hg] Right Atrium Right Atrium Systolic Pressure: 69.83 ml, 69.83 ml Dictated by: Marvin Anguiano M.D. on 02/22/2025 at 22:02 Approved by: Marvin Anguiano M.D. on 02/22/2025 at 22:06
== END 2025-02-22 15:51 | disposition home or self-care (01) ==
LOC: CARD 15:51
PROVIDERS: PCP Family Medicine; Visit Provider Internal Medicine Cardiovascular Disease
DX: I51.7 Cardiomegaly (principal); R93.1 Abnormal findings on diagnostic imaging of heart and coronary circulation
CPT/HCPCS: 93306; 93356